=== PATIENT | female | born 1945 | race Caucasian/White ===

== ENCOUNTER → 2023-12-31 16:44 | Outpatient (REF) | payer OTHER, SELFPAY | LOC: RAD 16:44 | PROVIDERS: ATTENDING PHYSICIAN Student in an Organized Health Care Education/Training Program | DX: S69.92XA Unspecified injury of left wrist, hand and finger(s), initial encounter (principal) | CPT/HCPCS: 73140 ==

== ENCOUNTER → 2024-07-14 08:56 | Outpatient (REF) | payer OTHER, SELFPAY | LOC: HWRAD 08:56 | PROVIDERS: ATTENDING PHYSICIAN Student in an Organized Health Care Education/Training Program | DX: M81.0 Age-related osteoporosis without current pathological fracture (principal); Z12.31 Encounter for screening mammogram for malignant neoplasm of breast | CPT/HCPCS: 77063; 77067; 77080 ==

== ENCOUNTER 2025-01-26 20:56 | Inpatient (IN) | payer OTHER, SELFPAY ==
[2025-01-26] VITALS (20 sets, daily range): BP systolic 91–126; BP diastolic 42–88; BMI 27.0
[2025-01-26 17:24] LABS: % Basophils 0.5 % (0-2); % Eosinophils 0.1 % (0-6); % Immature Granulocytes 0.6 % (0-0.5); % Lymphocytes 7.4 % (20.5-51.1); % Monocytes 9.2 % (1.7-9.3); % Neutrophils 82.2 % (42.2-75.2); Absolute Basophils 0.1 10^3/uL (0-0.2); Absolute Immature Granulocytes 0.1 10^3/uL (0-0.05); Absolute Lymphocytes 1.2 10^3/uL (1.2-3.4); Absolute Monocytes 1.5 10^3/uL (0.1-0.6); Absolute Neutrophils 13.3 10^3/uL (1.4-6.5); Hemoglobin 15.4 g/dL (12.0-16.0); Mean Corp Hgb Conc. 35.8 g/dL (33.0-37.0); Mean Corpuscular Hgb 30.6 pg (27.0-31.0); Mean Corpuscular Volume 85.5 fL (81.0-99.0); Mean Platelet Volume 9.7 fL (7.4-10.4); Nucleated Red Blood Cells % 0 %; Platelet Count 196 10^3/uL (130-400); Red Blood Cell Count 5.03 10^6/uL (4.20-5.40); Red Cell Dist. Width 13.6 % (11.5-14.5); White Blood Cell Count 16.2 10^3/uL (4.8-10.8)
[2025-01-26 17:41] LABS: ALT (SGPT) 26 U/L (0-35); AST (SGOT) 29 U/L (14-36); Albumin 3.3 g/dl (3.5-5.0); Alkaline Phosphatase 131 U/L (38-126); Blood Urea Nitrogen 16 mg/dl (7-17); Calcium 8.5 mg/dl (8.4-10.2); Carbon Dioxide 26 mmol/L (22-30); Chloride 96 mmol/L (98-107); Glucose 143 mg/dl (70-99); Potassium 3.7 mmol/L (3.5-5.1); Sodium 131 mmol/L (135-145); Total Protein 6.5 g/dl (6.3-8.2); eGFR > 60.00
[2025-01-26 17:47] LABS: COVID-19 Antigen Negative (Negative)
[2025-01-26 17:51] LABS: Urine Albumin 3+ (Neg - Trace); Urine Bilirubin 1+ (Negative); Urine Character Slightly Cloudy (Clear); Urine Color Yellow; Urine Glucose Negative (Negative); Urine Ketone 3+ (Negative); Urine Leukocyte 3+ (Negative); Urine Nitrite Negative (Negative); Urine Occult Blood 2+ (Negative); Urine Specific Gravity 1.025 (<1.030); Urine Urobilinogen 1+ (Neg - 1+)
[2025-01-26 17:52] LABS: Troponin I 0.308 ng/ml
--- NOTE | 2025-01-26 17:53 | ED.GENMED ---
History of Present Illness
<Kevyn Barillas DO - Last Filed: 01/26/25 18:29>
General
Chief Complaint: Cold/Flu/URI Symptoms
Time Seen by Provider: 01/26/25 17:35
<BRUNA Brown - Last Filed: 01/26/25 23:19>
General
Source: patient
Exam Limitations: none
Nursing documentation reviewed up to this point in time: agreed with
History of Present Illness
History of Present Illness:
patient is a 79-year-old female who presents to the ER for evaluation. Patient reports on Thursday 4 days ago she started decreased appetite and on Thursday she developed some head pressure. She has had a mild cough and has had 4 episodes of
diarrhea. She feels very weak dizzy and tired and noticed her balance seems a little off with feeling dizzy which is what prompted her to come to the ER today. She denies any actual fevers. She denies any chest pain any shortness of breath. She
denies any urinary frequency urgency or dysuria.
Past History
<BRUNA Brown - Last Filed: 01/26/25 23:19>
Past History
ED Past Medical History: HTN and Hypothyroidism
ED Past Surgical History: None
Review of Systems
<BRUNA Brown - Last Filed: 01/26/25 23:19>
Review of Systems
Allergies reviewed?: Yes
Other source history: family
All Other Systems: ROS reviewed and negative except as documented in HPI and ROS
Constitutional: Reports fatigue; Denies fever or chills
EENT: Reports no symptoms
Respiratory: Reports cough
ABD/GI: Reports diarrhea
: Reports no symptoms
Musculoskeletal: Reports no symptoms
Skin: Reports no symptoms
Neurological: Reports dizzy, headache and other (feels a little off balance )
Psychiatric: Reports no symptoms
Phy Exam
<BRUNA Brown - Last Filed: 01/26/25 23:19>
General Physical Exam
General Presentation: no apparent distress
General age: appears stated age
General Skin: warm and dry
General Habitus: normal
General Mental: alert
General Hydration: dry mucous membranes
Cardiovascular Exam
Cardiovascular Exam: regular rate/rhythm, no murmur and normal peripheral pulses
Pulmonary Exam
Pulmonary Exam: lungs clear and no respiratory distress
Neurological Exam
Neurological Exam: alert, oriented x3, no motor deficits, no sensory deficits and speech normal
Cerebellar
Cerebellar Function: normal finger to nose
Musculoskeletal Exam
Musculoskeletal Exam: full ROM
Skin Exam
Skin Exam: normal color and warm/dry
Psychiatric Exam
Psychiatric Exam: normal mood/affect
Course
<Kevyn Barillas DO - Last Filed: 01/26/25 18:29>
Orders/Labs/Results
Orders:
Orders
01/26/25 Breakfast
Clear Liquid
01/26/25 16:51
Electrocardiogram (*1) Urgent
Reason for Study: Vertigo / Dizzy
01/26/25 16:52
EKG- Treatment ONCE
01/26/25 17:09
CMP [Comprehensive Metabolic Panel] Urgent
COVID-19 Antigen Urgent
Source: Nasal Swab
Complete Blood Count/With Diff Urgent
Troponin I Urgent
Urinalysis Reflex To Culture Urgent
Date Specimen was Collected: 01/26/25
Time Specimen was Collected: 16:54
Urine Microscopic Reflex Cult Urgent
INF RAPID [Influenza A+B Rapid Molecular] Urgent
AMIRA Source: Nasal Swab
Specimen Description:
Urine Culture Urgent
AMIRA Source: U
Specimen Description:
Date Specimen was Collected: 01/26/25
Time Specimen was Collected: 16:54
01/26/25 18:12
CT Head W/o Iv Contrast Urgent
Comment:
Reason For Exam: headache /balance issues
01/26/25 18:41
0.9% Sodium Chloride 1000 ml [Nss] 1,000 ml IV BOLUS
01/26/25 19:25
Diltiazem HCl [Cardizem] 10 mg IV NOW STA
01/26/25 19:30
Diltiazem 125 mg/125 ml Nss [Cardizem] 125 mg in 125 ml IV PER PROTOCOL
Initial dose in mg/hr, then titrate:: 5
Titrate to keep:: Heart rate 80-100 bpm
Titrate by mg/hr:: 5 mg/hr
Frequency of titrations (minutes):: 15
Maximum dose in mg/hr:: 15
01/26/25 19:43
Acetaminophen [Tylenol] 650 mg PO NOW STA
01/26/25 19:58
Heparin 4,000 units IV NOW STA
Nursing to Place Non Medication Order As Directed
Physician Order: PTT 6 hours after initial start of Heparin infusion
Above order entered?: Yes
01/26/25 20:00
Heparin 22327 Units/250 ml 25,000 units in 250 ml IV PER PROTOCOL
Weight to be used for heparin protocol in kilograms (kg):: 71.8
Protocol:: Cardiac Tx/Acute Coronary
PTT Goal Range to be used:: PTT 73 to 111 seconds
Order type:: Initial
INITIAL Infusion Dose (UNITS/KG/hr) & then follow protocol:: 12 units/kg/hr
Infusion Dose in UNITS/hr & then follow protocol (UNITS/hr):: 850
INFUSION RATE in mL/hr & then follow protocol (mL/hr):: 8.5
PTT less than or equal to 64 seconds:: Increase rate by 200 units/hr (+ 2 mL/hr)
PTT 64.1 to 72.9 seconds:: Increase rate by 100 units/hr (+ 1 mL/hr)
PTT 73 to 111 seconds:: Target Range. No change in rate.
PTT 111.1 to 130.9 seconds:: Decrease rate by 100 units/hr (- 1 mL/hr)
PTT 131 to 199.9 seconds:: HOLD for 1 hr. Then decrease rate by 200 units/hr (- 2 mL/hr)
PTT greater than or equal to 200 seconds:: HOLD for 2 hrs & Notify Provider. Then decrease by 200 units/hr (-
2 mL/hr)
Lab follow-up:: Each change, PTT q6h until 2 consecutive are therapeutic. Then PTT
daily.
01/26/25 20:26
Admit/Transfer Patient As Directed
Co-Sign Provider:
Level of Care: Inpatient admission
Assign to:: IVU
Physician / Group: Ac
Diagnosis: A-fib w/RVR, Diarrhea
Reason for Hospitalization: IVFs, cardizem drip, heparin drip
Expected length of stay greater than two midnights?: Yes
ELOS- Estimated Length of Stay in days: 3
I certify the patient meets the requirements for IP care: Yes
Norovirus by PCR Urgent
AMIRA Source: Feces/Stool
Specimen Description:
STOOL [C difficile Antigen & Toxins] Urgent
AMRIA Source: Feces/Stool
Specimen Description:
Stool Culture Urgent
AMIRA Source: Feces/Stool
Specimen Description:
PRN Pain Medication Management As Directed
May give lesser potent ordered pain med per pt: Yes
preference::
Protocol:: Medication orders for pain may be administered in a
manner that supports deferring to patient preference
when the pt is:
- Requesting an ordered lesser potent pain medication.
Least to most potent pain medications are defined
as: acetaminophen < NSAID < tramadol < opioids
(morphine, oxycodone, hydromorphone).
- Requesting a lesser dose of the same medication IF
ORDERED.
- Requesting a less intrusive route of administration
if both routes are prescribed by the provider (PO <
IV).
01/26/25 20:29
Code Status As Directed
Resuscitation Status: Full Code
01/26/25 20:32
PTT Urgent
Comment: Obtain baseline before beginning heparin infusion if not already collected
01/26/25 21:00
0.9% Sodium Chloride 1000 ml [Nss] 1,000 ml IV 100 mls/hr
01/26/25 22:39
Acetaminophen [Tylenol] 650 mg PO Q4HPRN PRN
01/26/25 22:39
Echo 2D MMode Color/Doppler Routine
Reason for Study: new afib, known valvular disease
Cardiology Consult: Diogo Fisher
Heparin Protocol- PTT Orders As Directed
PTT per Heparin protocol: -Obtain CBC and baseline PTT - if not already collected.
-Obtain PTT 6 hours from start of infusion. Then, every 6 hours until 2 consecutive
PTT's are therapeutic. Then, PTT Daily.
-With each rate change, obtain PTT every 6 hours until 2 consecutive PTT's are
therapeutic. Then, PTT Daily.
Activity As Directed
Activity Level: Bedrest
I&O [Intake/ Output] As Directed
Frequency: q12h
Notify MD As Directed
Notify physician if: PTT is greater than or equal to 200.
Orthostatic Vital Signs As Directed
Orthostatic VS Frequency: Daily
Vital Signs As Directed
Frequency: Per unit guidelines
Weight As Directed
Frequency: Daily
01/26/25 23:07
Troponin I Q6H
01/27/25 05:00
Troponin I Q6H
01/27/25 06:00
Basic Metabolic Panel IN AM
Complete Blood Count/No Diff IN AM
Magnesium IN AM
TSH Reflex To Free T4 IN AM
Levothyroxine [Synthroid] 88 mcg PO DAILY @ 0600
01/27/25 08:00
Famotidine [Pepcid] 20 mg PO DAILY
Metoprolol Xl [Toprol Xl] 50 mg PO DAILY
Sertraline HCl [Zoloft] 50 mg PO DAILY
01/27/25 12:00
Ezetimibe [Zetia] 10 mg PO DAILY@1200
01/28/25 06:00
Complete Blood Count/No Diff Q2D
Comment: notify provider: Platelet count < 130,000 or decrease by 50% from baseline
01/30/25 06:00
Complete Blood Count/No Diff Q2D
Comment: notify provider: Platelet count < 130,000 or decrease by 50% from baseline
02/01/25 06:00
Complete Blood Count/No Diff Q2D
Comment: notify provider: Platelet count < 130,000 or decrease by 50% from baseline
02/03/25 06:00
Complete Blood Count/No Diff Q2D
Comment: notify provider: Platelet count < 130,000 or decrease by 50% from baseline
02/05/25 06:00
Complete Blood Count/No Diff Q2D
Comment: notify provider: Platelet count < 130,000 or decrease by 50% from baseline
02/07/25 06:00
Complete Blood Count/No Diff Q2D
Comment: notify provider: Platelet count < 130,000 or decrease by 50% from baseline
02/09/25 06:00
Complete Blood Count/No Diff Q2D
Comment: notify provider: Platelet count < 130,000 or decrease by 50% from baseline
02/11/25 06:00
Complete Blood Count/No Diff Q2D
Comment: notify provider: Platelet count < 130,000 or decrease by 50% from baseline
Abnormal Lab Results
01/26/25 01/26/25
17:09 20:32
WBC 16.2 H 10^3/uL
(4.8-10.8)
Abs Immat Gran (auto) 0.1 H 10^3/uL
(0-0.05)
Absolute Neuts (auto) 13.3 H 10^3/uL
(1.4-6.5)
Absolute Monos (auto) 1.5 H 10^3/uL
(0.1-0.6)
Immature Gran % 0.6 H %
(0-0.5)
Neutrophils % 82.2 H %
(42.2-75.2)
Lymphocytes % 7.4 L %
(20.5-51.1)
APTT 39.1 H Sec
(23.4-35.0)
Sodium 131 L mmol/L
(135-145)
Chloride 96 L mmol/L
(98-107)
Glucose 143 H mg/dl
(70-99)
Alkaline Phosphatase 131 H U/L
(38-126)
Troponin I 0.308 H* ng/ml
Albumin 3.3 L g/dl
(3.5-5.0)
Urine Ketones 3+ A
(Negative)
Ur Occult Blood Reflex 2+ A
(Negative)
Urine Bilirubin 1+ A
(Negative)
Leukocyte Esterase Rfl 3+ A
(Negative)
Urine Bacteria (Reflex) Few A
(Negative)
Urine Albumin (Reflex) 3+ A
(Neg - Trace)
01/26/25 17:09
01/26/25 17:09
Vital Signs
Initial and Last Documented VS:
Initial Vital Signs
Temp Pulse Resp BP Pulse Ox
98.9 F 112 16 124/66 94
01/26/25 16:48 01/26/25 16:48 01/26/25 16:48 01/26/25 16:48 01/26/25 16:48
Last Documented Vital Signs
Temp Pulse Resp BP Pulse Ox
97.5 F 97 22 101/64 93
01/26/25 22:28 01/26/25 22:00 01/26/25 22:00 01/26/25 22:00 01/26/25 22:29
<BRUNA Brown - Last Filed: 01/26/25 23:19>
Orders/Labs/Results
Orders:
Orders
01/26/25 Breakfast
Clear Liquid
01/26/25 16:51
Electrocardiogram (*1) Urgent
Reason for Study: Vertigo / Dizzy
01/26/25 16:52
EKG- Treatment ONCE
01/26/25 17:09
CMP [Comprehensive Metabolic Panel] Urgent
COVID-19 Antigen Urgent
Source: Nasal Swab
Complete Blood Count/With Diff Urgent
Troponin I Urgent
Urinalysis Reflex To Culture Urgent
Date Specimen was Collected: 01/26/25
Time Specimen was Collected: 16:54
Urine Microscopic Reflex Cult Urgent
INF RAPID [Influenza A+B Rapid Molecular] Urgent
AMIRA Source: Nasal Swab
Specimen Description:
Urine Culture Urgent
AMIRA Source: U
Specimen Description:
Date Specimen was Collected: 01/26/25
Time Specimen was Collected: 16:54
01/26/25 18:12
CT Head W/o Iv Contrast Urgent
Comment:
Reason For Exam: headache /balance issues
01/26/25 18:41
0.9% Sodium Chloride 1000 ml [Nss] 1,000 ml IV BOLUS
01/26/25 19:25
Diltiazem HCl [Cardizem] 10 mg IV NOW STA
01/26/25 19:30
Diltiazem 125 mg/125 ml Nss [Cardizem] 125 mg in 125 ml IV PER PROTOCOL
Initial dose in mg/hr, then titrate:: 5
Titrate to keep:: Heart rate 80-100 bpm
Titrate by mg/hr:: 5 mg/hr
Frequency of titrations (minutes):: 15
Maximum dose in mg/hr:: 15
01/26/25 19:43
Acetaminophen [Tylenol] 650 mg PO NOW STA
01/26/25 19:58
Heparin 4,000 units IV NOW STA
Nursing to Place Non Medication Order As Directed
Physician Order: PTT 6 hours after initial start of Heparin infusion
Above order entered?: Yes
01/26/25 20:00
Heparin 71396 Units/250 ml 25,000 units in 250 ml IV PER PROTOCOL
Weight to be used for heparin protocol in kilograms (kg):: 71.8
Protocol:: Cardiac Tx/Acute Coronary
PTT Goal Range to be used:: PTT 73 to 111 seconds
Order type:: Initial
INITIAL Infusion Dose (UNITS/KG/hr) & then follow protocol:: 12 units/kg/hr
Infusion Dose in UNITS/hr & then follow protocol (UNITS/hr):: 850
INFUSION RATE in mL/hr & then follow protocol (mL/hr):: 8.5
PTT less than or equal to 64 seconds:: Increase rate by 200 units/hr (+ 2 mL/hr)
PTT 64.1 to 72.9 seconds:: Increase rate by 100 units/hr (+ 1 mL/hr)
PTT 73 to 111 seconds:: Target Range. No change in rate.
PTT 111.1 to 130.9 seconds:: Decrease rate by 100 units/hr (- 1 mL/hr)
PTT 131 to 199.9 seconds:: HOLD for 1 hr. Then decrease rate by 200 units/hr (- 2 mL/hr)
PTT greater than or equal to 200 seconds:: HOLD for 2 hrs & Notify Provider. Then decrease by 200 units/hr (-
2 mL/hr)
Lab follow-up:: Each change, PTT q6h until 2 consecutive are therapeutic. Then PTT
daily.
05/01/25 20:26
Admit/Transfer Patient As Directed
Co-Sign Provider:
Level of Care: Inpatient admission
Assign to:: IVU
Physician / Group: Ac
Diagnosis: A-fib w/RVR, Diarrhea
Reason for Hospitalization: IVFs, cardizem drip, heparin drip
Expected length of stay greater than two midnights?: Yes
ELOS- Estimated Length of Stay in days: 3
I certify the patient meets the requirements for IP care: Yes
Norovirus by PCR Urgent
AMIRA Source: Feces/Stool
Specimen Description:
STOOL [C difficile Antigen & Toxins] Urgent
AMIRA Source: Feces/Stool
Specimen Description:
Stool Culture Urgent
AMIRA Source: Feces/Stool
Specimen Description:
PRN Pain Medication Management As Directed
May give lesser potent ordered pain med per pt: Yes
preference::
Protocol:: Medication orders for pain may be administered in a
manner that supports deferring to patient preference
when the pt is:
- Requesting an ordered lesser potent pain medication.
Least to most potent pain medications are defined
as: acetaminophen < NSAID < tramadol < opioids
(morphine, oxycodone, hydromorphone).
- Requesting a lesser dose of the same medication IF
ORDERED.
- Requesting a less intrusive route of administration
if both routes are prescribed by the provider (PO <
IV).
01/26/25 20:29
Code Status As Directed
Resuscitation Status: Full Code
01/26/25 20:32
PTT Urgent
Comment: Obtain baseline before beginning heparin infusion if not already collected
01/26/25 21:00
0.9% Sodium Chloride 1000 ml [Nss] 1,000 ml IV 100 mls/hr
01/26/25 22:39
Acetaminophen [Tylenol] 650 mg PO Q4HPRN PRN
01/26/25 22:39
Echo 2D MMode Color/Doppler Routine
Reason for Study: new afib, known valvular disease
Cardiology Consult: Diogo Fisher
Heparin Protocol- PTT Orders As Directed
PTT per Heparin protocol: -Obtain CBC and baseline PTT - if not already collected.
-Obtain PTT 6 hours from start of infusion. Then, every 6 hours until 2 consecutive
PTT's are therapeutic. Then, PTT Daily.
-With each rate change, obtain PTT every 6 hours until 2 consecutive PTT's are
therapeutic. Then, PTT Daily.
Activity As Directed
Activity Level: Bedrest
I&O [Intake/ Output] As Directed
Frequency: q12h
Notify MD As Directed
Notify physician if: PTT is greater than or equal to 200.
Orthostatic Vital Signs As Directed
Orthostatic VS Frequency: Daily
Vital Signs As Directed
Frequency: Per unit guidelines
Weight As Directed
Frequency: Daily
01/26/25 23:07
Troponin I Q6H
01/27/25 05:00
Troponin I Q6H
01/27/25 06:00
Basic Metabolic Panel IN AM
Complete Blood Count/No Diff IN AM
Magnesium IN AM
TSH Reflex To Free T4 IN AM
Levothyroxine [Synthroid] 88 mcg PO DAILY @ 0600
01/27/25 08:00
Famotidine [Pepcid] 20 mg PO DAILY
Metoprolol Xl [Toprol Xl] 50 mg PO DAILY
Sertraline HCl [Zoloft] 50 mg PO DAILY
01/27/25 12:00
Ezetimibe [Zetia] 10 mg PO DAILY@1200
01/28/25 06:00
Complete Blood Count/No Diff Q2D
Comment: notify provider: Platelet count < 130,000 or decrease by 50% from baseline
01/30/25 06:00
Complete Blood Count/No Diff Q2D
Comment: notify provider: Platelet count < 130,000 or decrease by 50% from baseline
02/01/25 06:00
Complete Blood Count/No Diff Q2D
Comment: notify provider: Platelet count < 130,000 or decrease by 50% from baseline
02/03/25 06:00
Complete Blood Count/No Diff Q2D
Comment: notify provider: Platelet count < 130,000 or decrease by 50% from baseline
02/05/25 06:00
Complete Blood Count/No Diff Q2D
Comment: notify provider: Platelet count < 130,000 or decrease by 50% from baseline
02/07/25 06:00
Complete Blood Count/No Diff Q2D
Comment: notify provider: Platelet count < 130,000 or decrease by 50% from baseline
02/09/25 06:00
Complete Blood Count/No Diff Q2D
Comment: notify provider: Platelet count < 130,000 or decrease by 50% from baseline
02/11/25 06:00
Complete Blood Count/No Diff Q2D
Comment: notify provider: Platelet count < 130,000 or decrease by 50% from baseline
Abnormal Lab Results
01/26/25 01/26/25
17:09 20:32
WBC 16.2 H 10^3/uL
(4.8-10.8)
Abs Immat Gran (auto) 0.1 H 10^3/uL
(0-0.05)
Absolute Neuts (auto) 13.3 H 10^3/uL
(1.4-6.5)
Absolute Monos (auto) 1.5 H 10^3/uL
(0.1-0.6)
Immature Gran % 0.6 H %
(0-0.5)
Neutrophils % 82.2 H %
(42.2-75.2)
Lymphocytes % 7.4 L %
(20.5-51.1)
APTT 39.1 H Sec
(23.4-35.0)
Sodium 131 L mmol/L
(135-145)
Chloride 96 L mmol/L
(98-107)
Glucose 143 H mg/dl
(70-99)
Alkaline Phosphatase 131 H U/L
(38-126)
Troponin I 0.308 H* ng/ml
Albumin 3.3 L g/dl
(3.5-5.0)
Urine Ketones 3+ A
(Negative)
Ur Occult Blood Reflex 2+ A
(Negative)
Urine Bilirubin 1+ A
(Negative)
Leukocyte Esterase Rfl 3+ A
(Negative)
Urine Bacteria (Reflex) Few A
(Negative)
Urine Albumin (Reflex) 3+ A
(Neg - Trace)
01/26/25 17:09
01/26/25 17:09
Vital Signs
Initial and Last Documented VS:
Initial Vital Signs
Temp Pulse Resp BP Pulse Ox
98.9 F 112 16 124/66 94
01/26/25 16:48 01/26/25 16:48 01/26/25 16:48 01/26/25 16:48 01/26/25 16:48
Last Documented Vital Signs
Temp Pulse Resp BP Pulse Ox
97.5 F 97 22 101/64 93
01/26/25 22:28 01/26/25 22:00 01/26/25 22:00 01/26/25 22:00 01/26/25 22:29
Child Caregiver Private Home consulted with Physician
Child Caregiver Private Home consulted with physician?: Yes
Name of Physician Consulted: Adilia
<BRUNA Brown - Last Filed: 01/26/25 23:19>
MDM/Problems Addressed
Differential Diagnosis Includes:
not limited to: viral syndrome, ACS less likely, new onset afib
MDM/Problems Addressed:
As documented patient is a 72 send no female who presented with decreased appetite weakness head pressure mild cough diarrhea for the past 4 days. She presented today because she feels very dizzy weak and her balance seems a little off. Daughter
reports normally she walks without any assistive device but feels that she needs a cane recently. She had no complaints of chest pain however presents with an elevated troponin of 0.308. She has a history of hypertension hypercholesterolemia
however no history of cardiac disease. Nonspecific but no acute findings on EKG.
Patient evaluated by ED physician CT ordered for complaints of headache balance issues. I did walk balance patient seems a little slower and seems a little unsure of her gait.
she is dry and w/ history of diarrhea IVF ordered.
1914 patient on the monitor suddenly went into rapid A-fib with a heart rate of 147.: She however is asymptomatic with no feeling of palpitations chest pain or shortness of breath. With elevated troponin it is likely that patient has been going in
and out of A-fib however was unaware at home. Fluids currently infusing however will order Cardizem to further rate control
IV heparin ordered will admit
<BRUNA Brown - Last Filed: 01/26/25 23:19>
*Radiology
Radiology exam reviewed: radiology read reviewed
*Pulse Oximetry
Patient hypoxic: no
*EKG
Interpreted by ED Provider?: Yes
Heart Rate: 101
Rate: tachycardiac
Rhythm: sinus
Ischemia: non-specific ST changes
*Critical Care Note
Total Time (30-74mins, 75-104mins- exclusive of procedures): Not Applicable
comment:
Critical care statement: A total of 40 minutes of critical care time was provided for this patient. This includes management of unstable vital signs, evaluation of the patient at bedside, reviewing the patient's pertinent medical records, discussion
with consultants, review of old EKGs and review of pertinent medical records. This time with separate from time utilized to perform the aforementioned documented procedures
ED Attending Note
<Kevyn Barillas DO - Last Filed: 01/26/25 18:29>
ED Attending Note
Patient seen and examined by attending physician: Yes
I performed the substantive portion of visit, reviewed & personally made and approve the management plan that is documented in note by myself or DON.: Yes
<BRUNA Brown - Last Filed: 01/26/25 23:19>
-
Portions of this chart may have been created with voice recognition software.� Occasional wrong word or��sound alike� substitutions may have occurred due to the inherent limitations of voice recognition software.
Discharge Plan
Departure
Patient Disposition: Admit
Date of Disposition: 01/26/25
Time of Disposition: 20:03
Admit to: Telemetry
Admit to doctor: hospitalist
Presentation/result/management discussed w/ accepting MD/DO: Hospitalist
Patient with high blood pressure during this ER visit?: No
Condition: Fair
Covid-19: Not Applicable
Discharge Problem:
Acute viral syndrome, Atrial fibrillation, new onset, Elevated troponin
Interventions
Interventions:
*General Assessment Last Done: 01/26/25 19:09
*Neglect/Abuse Screening Last Done: 01/26/25 16:48
*ED- Fall Risk Assessment Last Done: 01/26/25 19:09
*Nursing Disposition Last Done: 01/26/25 22:26
Discharge Date and Time
Discharge Date/Time: 01/26/25 22:26
[2025-01-26 17:56] LABS: Urine Bacteria Few (Negative); Urine Red Blood Cell 0-2 /HPF (0-2)
[2025-01-26] MEDS: NSS 1000 IV ×2 (19:31→21:28)
[2025-01-26] MEDS: CARDIZEM 10 MG IV (19:31)
[2025-01-26] MEDS: CARDIZEM 125 IV (19:33)
[2025-01-26] MEDS: TYLENOL 650 MG PO (19:44)
--- NOTE | 2025-01-26 20:11 | HPS.HSE ---
Addendum entered and electronically signed by Delmer Shen DO 01/26/25 21:21:
Patient seen and examined independently. Agree with findings and plan as set forth by JEREMY Hardwick.
Patient is a 79y F with PMH significant for hypertension and hypothyroidism who presents to ED complaining of headache, dizziness and diarrhea. Patient states that she has been having GI symptoms for about 4 days with minimal N/V followed by
several days of diarrhea. No known sick contacts or recent travel. Today she developed headache and dizziness and presented to the ED for further evaluation. While in the ED, patient developed atrial fibrillation with rapid ventricular response.
She denies any priro h/o A-Fib. She denies any chest pain / pressure, SOB, etc. In the ED, her headache has improved after Tylenol and patient complains of feeling flushed / warm and diaphoretic.
Ass:
New A-Fib with Rapid Ventricular Response
Abnormal Troponin - ? Type
Suspected Viral Gastroenteritis
Hyponatremia - Likely Hypovolemic
Benign Hypertension
Hypothyroidism
Anxiety
Plan:
Admit for further evaluation and treatment.
IV diltiazem for rate control. IV heparin for stroke risk reduction.
Follow troponin to peak and monitor for any new chest pain, dyspnea, etc.
Cardiology consulted for additional recommendations.
IVF support given recent GI losses, etc.
Check stool studies. Observe off of abx for now.
Follow for any new / worsening symptoms.
Original Note:
Family Physician
-
Family Physician: Prince Gonzales
Chief Complaint
-
Headache, Dizziness and Diarrhea
History of Present Illness
Patient is a 79 y/o female past medical history of hypertension, hypothyroidism and anxiety who presents with headache, dizziness and diarrhea. Patient reports symptoms started 4 days ago initially with nausea and a little bit of vomiting. She then
developed diarrhea which has persisted for the last several days. She reports very poor oral intake. She reports low grade fevers ~100.4 over the past two day, but temperature seems to have normalized. Today she began complaining of increased head
pressure and dizziness prompting family to bring her to the emergency department for evaluation. While in the emergency department patient developed atrial fibrillation with rapid ventricular response. Patient denies any prior history of atiral
fibrillation. She denies chest pain or palpitations.
Medical History
Past Medical History
Past Medical History: Reports Other
Additional Past Medical History:
Essential Hypertension
Hyperlipidemia
Mild Aortic Regurgitation
Post-Surgical Hypothyroidism
Anxiety
GERD
Past Surgical History: Reports Other
Additional Past Surgical History:
Thyroidectomy
Right Wrist ORIF
Right Knee Replacement
Social History
Tobacco: Non-smoker
Alcohol: Occasional (Once a week)
Family History
Family History: Not pertinent
Allergies / Home Medications
Allergies reflects when Allergies were last updated in [employer].
Home Medications with original date entered in [facility]
Allergy/Medication List:
Allergies
Allergy/AdvReac Type Severity Reaction Status Date / Time
lisinopril Allergy Unknown Verified 01/26/25 20:20
Home Medications
Viviscal 1 tab PO BID 01/26/25
calcium carbonate 500 mg PO DAILY 01/26/25
ezetimibe 10 mg tablet (Zetia) 10 mg PO DAILY@1200 01/26/25
glycopyrrolate 1 mg tablet 1 mg PO BID 01/26/25
levothyroxine 88 mcg tablet (Synthroid) 88 mcg PO DAILY 01/26/25
metoprolol succinate 50 mg tablet,extended release 24 hr (Toprol XL) 50 mg PO DAILY 01/26/25
omeprazole 20 mg tablet,delayed release 20 mg PO DAILY 01/26/25
sertraline 50 mg tablet 50 mg PO DAILY 01/26/25
vitamins A,C,Y-nepk-bqqwrw 2,148 mcg-113 mg-45 mg-17.4 mg tablet (PreserVision AREDS) 1 tab PO BID 01/26/25
Review of Systems
-
A 12 point ROS was completed and negative except as noted: Yes
Constitutional: Denies Fever
Respiratory: Reports Cough (Minimal which has resolved); Denies Trouble Breathing
Cardiac: Denies Chest Pain or Palpitations
Abdomen/GI: Reports See HPI
Physical Exam
Vital Signs
Vital Signs
Temp Pulse Resp BP Pulse Ox
98.9 F 168 28 102/78 93
01/26/25 16:48 01/26/25 19:31 01/26/25 19:30 01/26/25 19:31 01/26/25 18:30
Physical Exam
General: Comfortable and Conversant
HEENT: NormoCephalic, Anicteric and Atraumatic
Respiratory: Clear and Non Labored Respirations
Cardiac: S1/S2, Irregular Rhythm and Tachycardia
GI: Soft and Non Tender
Rectal: Deferred by Provider
Musculoskeletal: No Clubbing and No Cyanosis
Skin: Warm and Dry
Neuro: Awake, Alert, Oriented and Nonfocal/grossly intact
Psych: Calm
Laboratory Results
-
01/26/25 17:09
01/26/25 17:09
Laboratory Results
Total Bilirubin 1.0 mg/dl (0.2-1.3) 01/26/25 17:09
AST 29 U/L (14-36) 01/26/25 17:09
ALT 26 U/L (0-35) 01/26/25 17:09
Alkaline Phosphatase 131 U/L (38-126) H 01/26/25 17:09
Troponin I 0.308 ng/ml H* 01/26/25 17:09
Data Reviewed
-
Lab Data: Labs Reviewed by me
Impression/Plan
-
New-Onset Atrial Fibrillation with Rapid Ventricular Response
-Admit to IVU
-Patient has not taken her Toprol XL for past few days - Will resume tomorrow
-Continue titratable Cardizem drip
-Continue heparin drip started in ED
-Consult Cardiology
Elevated Troponin, suspect non-ischemic myocardial injury in setting of rapid a-fib
-Continue to trend troponin
-Check Echocardiogram
Diarrhea, suspect viral gastroenteritis
-Check stool culture, stool for C Diff and Norovirus
-Allow clear liquids
Hyponatremia, mildly likely hypovolemic ic in nature
-Continue IVFs
-Recheck sodium in AM
Essential Hypertension
-Continue Toprol with hold parameters
Hyperlipidemia
-Continue Zetia
Post-Surgical Hypothyroidism
-Continue levothyroxine
Anxiety
-Continue Zoloft
DVT proph: Heparin Drip
Code Status: Full Code
[2025-01-26] MEDS: HEPARIN 4000 UNITS IV (20:42)
[2025-01-26] MEDS: HEPARIN 25000 UNITS/250 ML IV (20:43)
[2025-01-26 20:53] LABS: APTT 39.1 Sec (23.4-35.0)
[2025-01-26 23:41] LABS: Troponin I 0.224 ng/ml
--- NOTE | 2025-01-26 23:57 | PTCARENOTE ---
Pt arrived from ER to IVU room 2244 at approx 2215. Received pt on Heparin drip at 850 units/hr and Cardizem drip at 10 mg/hr. Pt able to ambulate with standby assistance and single point cane from stretcher to bed and to the bathroom. A/O x4, no
c/o pain. AFib 110s-120s upon arrival, now that pt is asleep HR has come down to 90s/low 100s. MAPs have been >65. Physical assessment as documented in nursing shift assessment flowsheet. Admission database completed. Pt and her daughter updated on
plan of care and isolation precautions (currently on Enhanced precautions to r/o C.Diff, pt has not yet had a BM since arriving to IVU). Call marques and personal items within reach.
[2025-01-27] VITALS (11 sets, daily range): BP systolic 99–128; BP diastolic 56–91; PULSE 94–116; BMI 26.9
[2025-01-27] MEDS: TYLENOL 650 MG PO ×3 (03:35→17:11)
[2025-01-27 03:40] LABS: Hemoglobin 13.6 g/dL (12.0-16.0); Mean Corpuscular Hgb 29.9 pg (27.0-31.0); Mean Corpuscular Volume 87.9 fL (81.0-99.0); Mean Platelet Volume 9.6 fL (7.4-10.4); Platelet Count 179 10^3/uL (130-400); Red Blood Cell Count 4.55 10^6/uL (4.20-5.40); Red Cell Dist. Width 13.7 % (11.5-14.5); White Blood Cell Count 16.3 10^3/uL (4.8-10.8)
[2025-01-27 03:59] LABS: APTT 61.4 Sec (23.4-35.0)
[2025-01-27 04:03] LABS: Blood Urea Nitrogen 11 mg/dl (7-17); Carbon Dioxide 21 mmol/L (22-30); Chloride 106 mmol/L (98-107); Estimated Creatinine Clearance 68 ml/min; Glucose 132 mg/dl (70-99); Magnesium 2.1 mg/dl (1.6-2.3); Potassium 3.5 mmol/L (3.5-5.1); Sodium 137 mmol/L (135-145); eGFR > 60.00
[2025-01-27 04:20] LABS: Troponin I 0.155 ng/ml
[2025-01-27 04:31] LABS: TSH Reflex To Free T4 0.82 uIU/ml (0.47-4.68)
[2025-01-27] MEDS: SYNTHROID 88 MCG PO (06:13)
[2025-01-27] MEDS: CARDIZEM 125 IV (06:13)
--- NOTE | 2025-01-27 08:29 | W.PN.HOSP.TC ---
Today's Communication/Plan
-
See plan
Assessment / Plan
Assessment / Plan
Physical Exam
General: Not in acute distress
HEENT: Normocephalic, Atraumatic
Respiratory: Clear to Auscultation Bilaterally
Cardiac: S1/S2, Irregular Rhythm and Tachycardia
GI: Soft and Non Tender. Positive bowel sounds.
Musculoskeletal: No Cyanosis
Skin: Warm and Dry
Neuro: Awake, Alert, Oriented and Nonfocal/grossly intact
Psych: Calm
Assessment/Plan
79 y/o female past medical history of hypertension, hypothyroidism and anxiety who presented with headache, dizziness and diarrhea. Patient reported symptoms started about 4 days prior to presentation, initially with nausea and a little bit of
vomiting. She then developed diarrhea which persisted for the last several days. She reported very poor oral intake. She reports low grade fevers ~100.4 F over the 2 days prior to presentation, but temperature seemed to have normalized. No known
sick contacts or recent travel. On the day of presentation, she began to complain of increased head pressure and dizziness prompting family to bring her to the emergency department for evaluation. While in the emergency department patient developed
atrial fibrillation with rapid ventricular response. Patient denied any prior history of atrial fibrillation. She denies chest pain or palpitations. She denies any chest pain / pressure, SOB, etc. In the ED, her headache has improved after
Tylenol and patient complained of feeling flushed / warm and diaphoretic.
New-Onset Atrial Fibrillation with Rapid Ventricular Response
-Monitor in IVU
-Patient has not taken her Toprol XL for past few days - resumed
-Continue titratable Cardizem drip
-Continue heparin drip started in ED
-Consult Cardiology
Elevated Troponin, suspect non-ischemic myocardial injury in setting of rapid a-fib
-Continue to trend troponin
-Check Echocardiogram
Leukocytosis
Diarrhea, suspect viral gastroenteritis
-Check stool culture, stool for C Diff and Norovirus
-Allow clear liquids
Hyperhidrosis
-Hold home Glycopyrrolate for now given anticholinergic effects which could have contributed to patient's symptoms
-Patient's daughter did mention that patient is sweating more, but patient does have chronic sweating more
Hyponatremia, mildly likely hypovolemic ic in nature
- IMPROVING
-Continue IVFs
-Recheck sodium in AM
Essential Hypertension
-Continue Toprol with hold parameters
Hyperlipidemia
-Continue Zetia
Post-Surgical Hypothyroidism
-Continue levothyroxine
Anxiety
-Continue Zoloft
DVT proph: Heparin Drip
Code Status: Full Code
On January 27, 2025, I spoke with both patient and her daughter, inside patient's room. I answered all of their questions and concerns to satisfaction.
Anticipated Discharge: 24 - 48 hours
Subjective/Interval History
-
Date of Service: January 27, 2025
Patient was seen and examined. She reported feeling better this morning.
Objective Data
-
Labs:
Laboratory Results
01/26/25 01/27/25 01/27/25
20:32 03:27 10:40
WBC 16.3 H
Hgb 13.6
Hct 40.0
Plt Count 179
APTT 39.1 H 61.4 H Pending
Sodium 137
Potassium 3.5
Chloride 106
Carbon Dioxide 21 L
BUN 11
Creatinine 0.6
Glucose 132 H
Calcium 8.0 L
Vital Signs:
Vital Signs
Temp Pulse Resp BP Pulse Ox
98.0 F 92 16 103/66 95
01/27/25 07:29 01/27/25 07:27 01/27/25 07:29 01/27/25 07:27 01/27/25 07:29
I&O
01/26/25 01/27/25 01/28/25
06:59 06:59 06:59
Intake Total 850.0 / 850.0
Output Total 100 / 100
Balance 750.0 / 750.0
--- NOTE | 2025-01-27 09:33 | CON.CAR ---
Addendum entered and electronically signed by Malou Alford MD 01/27/25 16:41:
I saw and examined the patient.
The RUG LAYER's note was reviewed and I agree with the note.
Comment: 79-year-old female with hypertension, dyslipidemia, mild aortic regurgitation, mild tricuspid regurgitation, hypothyroidism, anxiety and GERD, here with decreased appetite and diarrhea for 4 days. With this, she had developed atrial
fibrillation while in the emergency room. Rates have been quite elevated. Now under better control with IV diltiazem dose. She is typically on metoprolol as well. She is feeling better but still unwell. No chest pain or palpitations. No
shortness of breath. On exam lungs are clear to auscultation bilaterally she has an irregularly irregular rhythm, no lower extremity edema. Labs are significant for initial troponin of 0.3 trended down to 0.1. Overall, this is a new diagnosis of
atrial fibrillation, onset was in this hospitalization. She was initiated on an heparin drip. Will continue this until GI symptoms improve. Then this should be transition to Eliquis. For now continue IV diltiazem drip was transition to p.o.
agents once diarrhea improved. Would not attempt rhythm control during this hospitalization. Once she is improved, then could consider cardioversion as an outpatient as onset is known and she was initiated on anticoagulation immediately.
Echocardiogram today showed normal biventricular size and systolic function mild aortic regurgitation.She has had no chest pain or shortness of breath to suggest anything other than nonischemic myocardial injury in the setting of A-fib with RVR. No
further evaluation warranted. Care of her diarrhea as per Dr. Etienne. Will follow.
Original Note:
Consultation
Consultation Request
Date/Time Consultation Requested: 01/26/25 10p
Date/Time Consultation Performed: 01/27/25 9a
Requesting Provider: Silvana Castelan PA-C
Performing Provider: BRUNA Salazar for Dr. Alford
Reason for Consultation: new rapid Afib
Medical History
-
Chief Complaint: diarrhea, decreased appetite
History of Present Illness:
Mrs. Rooney is a 79-year-old female with hypertension, dyslipidemia, mild aortic regurgitation, mild tricuspid regurgitation, hypothyroidism, anxiety and GERD, who presents to the ER with complaints of decreased appetite, fatigue and diarrhea x 4
days. She is admitted to the hospitalist service and was noted to have rapid atrial fibrillation in the ER. She was started on IV diltiazem drip and IV Heparin. We are consulted for new onset rapid A-fib. Initial EKG in the ER showed sinus
tachycardia then she went into rapid Afib while in the ER. She denies feeling any irregular heart beats or palpitations. Her troponin trend 0.308, 0.224, 0.155. She denies any chest pain or shortness of breath.
Past Medical History
Past Medical History: Other (as above)
Past Surgical History: Orthopedic (Right wrist, right knee) and Other (Thyroidectomy)
Social History
Tobacco: Non-Smoker
Alcohol: Occasional
Family History
Family History: Reviewed & Not Pertinent
Allergies / Home Medications
Allergy/AdvReac Type Severity Reaction Status Date / Time
lisinopril Allergy Unknown Verified 01/26/25 20:20
�Medication �Instructions �Recorded �Confirmed �Type
Viviscal 1 tab PO BID Supplement 01/26/25 01/26/25 History
calcium carbonate 500 mg PO DAILY Supplement 01/26/25 01/26/25 History
ezetimibe 10 mg tablet (Zetia) 10 mg PO DAILY@1200 High 01/26/25 01/26/25 History
Cholesterol
glycopyrrolate 1 mg tablet 1 mg PO BID Hyperhidrosis, primary 01/26/25 01/26/25 History
fo
levothyroxine 88 mcg tablet 88 mcg PO DAILY Thyroid 01/26/25 01/26/25 History
(Synthroid)
metoprolol succinate 50 mg 50 mg PO DAILY Blood Pressure 01/26/25 01/26/25 History
tablet,extended release 24 hr
(Toprol XL)
omeprazole 20 mg tablet,delayed 20 mg PO DAILY Gastrointestinal 01/26/25 01/26/25 History
release Issue
sertraline 50 mg tablet 50 mg PO DAILY Mental 01/26/25 01/26/25 History
Health/Anxiety
vitamins A,C,C-uzaq-ogjwuh 2,148 1 tab PO BID Supplement 01/26/25 01/26/25 History
mcg-113 mg-45 mg-17.4 mg tablet
(PreserVision AREDS)
Review of Systems
-
History Source: Patient
All other systems: Negative unless noted
Physical Exam
Vital Signs
Temp Pulse Resp BP Pulse Ox
98.0 F 92 16 103/66 95
01/27/25 07:29 01/27/25 07:27 01/27/25 07:29 01/27/25 07:27 01/27/25 07:29
Lab Results
01/27/25 03:27
01/27/25 03:27
Troponin I 0.155 ng/ml H* D 01/27/25 03:27
Physical Exam
General: Well Developed and No Apparent Distress
HEENT: Normocephalic, Anicteric and Moist Mucous Membranes
Respiratory: Clear and Non Labored Respirations
Cardiac: S1/S2 and Irregular Rhythm (tachy at times)
Breast: Deferred by me
GI: Soft, Non Tender and Normal Bowel Sounds
Rectal: Deferred by Provider
Genito-urinary: No Costovertebral Tender
Musculoskeletal: No Clubbing, No Cyanosis and No Edema
Skin: Warm and Dry
Neuro: AO x 3
Psych: Calm
Impression / Plan
-
Afib - new onset in the ER, RVR.
- on IV Diltiazem drip.
- [id number] VASc scores is 4 (age, female, HTN), on IV Heparin for now.
- case management consult for Eliquis 5mg BID.
- continue Toprol, Diltiazem and IV Heparin for now.
- unaware of irregular heart rhythm, rate control for now then as outpatient can consider DCCV.
Non-ischemic myocardial injury - acute in setting of new rapid Afib.
- troponin trend 0.308, 0.224, 0.155
- check echo.
- denies chest pain.
HTN - stable.
- monitor with IV Diltiazem and diarrhea.
- IVF.
HLD - stable on Zetia.
Diarrhea - acute.
- sample sent to the lab.
- C-diff precautions.
- managed per hospitalist.
Hypothyroidism - on levothyroxine.
Anxiety - chronic, stable on sertraline.
Data Reviewed
-
EKG: Tracing Personally Visualized and interpreted ( EKG 01/26/25 rapid Afib, [id number]. )
Medical Tests (Nuc Med, Echo etc): Report Reviewed by me (Echo 04/01/2022: Normal biventricular size and function, EF 55-60%, mild aortic regurgitation, mild tricuspid regurgitation.)
Labs: Labs Reviewed by me
Old Records: Reviewed
[2025-01-27] MEDS: NSS 1000 IV ×2 (09:35→19:09)
[2025-01-27] MEDS: PEPCID 20 MG PO (09:35)
[2025-01-27] MEDS: ZOLOFT 50 MG PO (09:36)
[2025-01-27] MEDS: TOPROL XL 50 MG PO ×2 (09:45→18:02)
--- NOTE | 2025-01-27 10:25 | PTCARENOTE ---
Patient resting in bed this morning with IV cardizem infusing at 10mg/hr, IV heparin infusing at 1050 units/hr and IV fluids at 100ml/hr. Patient is still having liquid stools, continent and ambulating to the bathroom with assistance. Remains in AF
with rate 80-100's at rest. Patient is afebrile with intermittent chills and diaphoresis. Patient does normally take medication for excessive perspiration. Echo done at the bedside, sitting oob in the chair now- patient's daughter Paola in visiting.
[2025-01-27 11:13] LABS: APTT 67.8 Sec (23.4-35.0)
[2025-01-27] MEDS: ZETIA 10 MG PO (11:53)
--- NOTE | 2025-01-27 14:10 | CM ---
Chart reviewed. Patient is independent of ADLS, lives alone in a [address], 1st floor set up, [address], has been recently ambulating with a SPC due to weakness from dehydration. Patient is not current with [facility], but is interested. [facility]
Plan is for the patient to return home with [facility]. CM to follow
--- NOTE | 2025-01-27 16:47 | CM ---
Pricing on Eliquis 5mg BID is covered under the patient's prescription plan at $21 for a 30 day supply. Patient is agreeable to cost
--- NOTE | 2025-01-27 16:52 | PTCARENOTE ---
While doing routine VS, noted to be in SR. EKG done which confirmed SR. Temp 101.9, notified Dr. Parada re: temp and conversion to SR. TT to cardiology re: rhythm. Will medicate with tylenol for fever. Patient offers no complaints.
[2025-01-27] MEDS: HEPARIN 25000 UNITS/250 ML IV (19:09)
--- NOTE | 2025-01-27 20:14 | PTCARENOTE ---
Received pt @ change of shift. AAOx3. VSS-- NSR on monitor. Pt still having diarrhea, but reports the amounts are becoming smaller. NSS is running @ 100 mL/hr and heparin gtt running @ 1250 units/hr through left AC. Bowel sounds are normal @ this
time. Pt reports feeling very 'drained, but way better than when she came in last night.' Discussed plan of care for evening. Pt verbalizes understanding. Call marques within reach.
[2025-01-28] VITALS (18 sets, daily range): BP systolic 104–135; BP diastolic 53–106; BMI 28.0
[2025-01-28 00:58] LABS: APTT 69.6 Sec (23.4-35.0)
--- NOTE | 2025-01-28 01:36 | PTCARENOTE ---
Addendum entered by Irene Rosen RN 01/28/25 06:24:
Pt has gone in and out of A-Fib, ventricular bigeminy, and normal sinus rhythm all evening. Pt has not sustained higher than 120s for more than a minute @ this time. When coughing, pt had HR of +170 that came right back down.
Original Note:
Around 01:20, pt went back into an Afib rhythm with rates around 105-110. Informed Shine Johns NP. Told to observe if not sustainable in higher rate. Pt asymptomatic @ this time.
[2025-01-28] MEDS: NSS 1000 IV (05:25)
[2025-01-28] MEDS: SYNTHROID 88 MCG PO (06:07)
--- NOTE | 2025-01-28 06:22 | PTCARENOTE ---
During med administration, RN heard wheezing while pt breathing. Pt denies SOB but could feel wheeziness and has started coughing. Pulse ox was 90%. RN put oxygen on for pt comfort.
[2025-01-28 07:18] LABS: % Basophils 0.5 % (0-2); % Eosinophils 0.1 % (0-6); % Lymphocytes 4.7 % (20.5-51.1); % Neutrophils 87.7 % (42.2-75.2); Absolute Basophils 0.1 10^3/uL (0-0.2); Absolute Immature Granulocytes 0.2 10^3/uL (0-0.05); Absolute Lymphocytes 0.7 10^3/uL (1.2-3.4); Absolute Monocytes 0.9 10^3/uL (0.1-0.6); Absolute Neutrophils 13.6 10^3/uL (1.4-6.5); Hematocrit 35.3 % (37.0-47.0); Hemoglobin 12.4 g/dL (12.0-16.0); Mean Corp Hgb Conc. 35.1 g/dL (33.0-37.0); Mean Corpuscular Hgb 30.2 pg (27.0-31.0); Mean Corpuscular Volume 86.1 fL (81.0-99.0); Mean Platelet Volume 10.1 fL (7.4-10.4); Nucleated Red Blood Cells % 0 %; Platelet Count 169 10^3/uL (130-400); Red Cell Dist. Width 13.9 % (11.5-14.5); White Blood Cell Count 15.5 10^3/uL (4.8-10.8)
[2025-01-28 07:58] LABS: APTT 114.2 Sec (23.4-35.0)
--- NOTE | 2025-01-28 08:20 | PTCARENOTE ---
PTT came back at 114.2. Decreased her heparin gtt to 1250 units/hr per protocol.
[2025-01-28 08:21] LABS: Blood Urea Nitrogen 7 mg/dl (7-17); Calcium 7.9 mg/dl (8.4-10.2); Carbon Dioxide 19 mmol/L (22-30); Chloride 106 mmol/L (98-107); Estimated Creatinine Clearance 66 ml/min; Glucose 115 mg/dl (70-99); Magnesium 2.1 mg/dl (1.6-2.3); Potassium 3.1 mmol/L (3.5-5.1); Sodium 135 mmol/L (135-145); eGFR > 60.00
[2025-01-28] MEDS: TOPROL XL 50 MG PO ×2 (08:45→19:59)
[2025-01-28] MEDS: ZOLOFT 50 MG PO (08:45)
[2025-01-28] MEDS: PEPCID 20 MG PO (08:45)
[2025-01-28] MEDS: KCL 40 MEQ PO ×3 (09:03→20:00)
--- NOTE | 2025-01-28 09:05 | PTCARENOTE ---
Addendum entered by Briana Rubio RN 01/28/25 10:03:
She also has a frequent non-productive cough.
Original Note:
The patient's potassium was 3.[address] Whitt. Ordered put in for 40 meq of po Kcl. Kcl given as ordered. She appeared dyspneic at rest. Oxygen sat on RA was 90%. Replaced O2 back on the patient. Her lung sound were clear. She did
complain of lightheadedness upon rising. Her heart rates have been fluctuating between the low 100s and as high as 150s. Rapid Afib is noted on the monitor. I asked her to not get up unless she has assistance. The patient agreed. She continues to
have multiple yellow liquid stools.
--- NOTE | 2025-01-28 10:54 | W.PN.HOSP.TC ---
Today's Communication/Plan
-
IV Abx
CT study
Assessment / Plan
Assessment / Plan
Physical Exam
General: Not in acute distress
HEENT: Normocephalic, Atraumatic
Respiratory: Clear to Auscultation Bilaterally
Cardiac: S1/S2, Tachycardia
GI: Soft and Non Tender. Positive bowel sounds.
Musculoskeletal: No Cyanosis
Skin: Warm and Dry
Neuro: Awake, Alert, Oriented and Nonfocal/grossly intact
Psych: Calm
Assessment/Plan
79 y/o female past medical history of hypertension, hypothyroidism and anxiety who presented with headache, fever, new onset A fib, dizziness and diarrhea.
#New-Onset Atrial Fibrillation with Rapid Ventricular Response
-Monitor in IVU
Still tachycardia due to ongoing GI issue/ fever
-Patient has not taken her Toprol XL for past few days - resumed
- Off Cardizem drip, to start on oral Cardizem also
[id number] around 4 for age, sex, HTN, started on IV Heparin, ok to switch to oral AC
can dc heparin gtt
-Consulted Cardiology
#Elevated Troponin, suspect non-ischemic myocardial injury in setting of rapid a-fib
-Continue to trend troponin
-Checked Echocardiogram, no regional wall motion abnormalities, no chest pain
Troponin trending down
# SIRS with Fever, diarrhea, leukocytosis, fever , she is meeting criteria of infection/sepsis
will do Blood culture
Add IV Rocephin
Will do CT study with IV & Oral contras( pt denies allergy) but likely Diarrhea, suspect viral gastroenteritis. Noro and C Diff are negative
- ok for diet
F /w CT study
# Hypokalemia
Replace
# Hyperhidrosis
-Hold home Glycopyrrolate for now given anticholinergic effects which could have contributed to patient's symptoms
-Patient's daughter did mention that patient is sweating more, but patient does have chronic sweating more
#Hyponatremia, mildly likely hypovolemic ic in nature
Resolved with IVF
#Essential Hypertension
-Continue Toprol with hold parameters
#Hyperlipidemia
-Continue Zetia
#Post-Surgical Hypothyroidism
-Continue levothyroxine
#Anxiety
-Continue Zoloft
DVT proph: Heparin Drip
Code Status: Full Code
Total time spent to see the patient, examine the patient, review data and lab result, discuss treatment plan with the patient, nursing staff around 55 minutes
Anticipated Discharge: > 48 hours
Subjective/Interval History
-
Date of Service: January 28, 2025
She feels better but still having some SOB and diarrhea
Objective Data
-
Labs:
Laboratory Results
01/28/25 01/28/25 01/28/25
00:31 07:09 14:20
WBC 15.5 H
Hgb 12.4
Hct 35.3 L
Plt Count 169
APTT 69.6 H 114.2 H Pending
Sodium 135
Potassium 3.1 L
Chloride 106
Carbon Dioxide 19 L
BUN 7
Creatinine 0.7
Glucose 115 H
Calcium 7.9 L
Vital Signs:
Vital Signs
Temp Pulse Resp BP Pulse Ox
99.2 F 119 20 128/84 93
01/28/25 07:01 01/28/25 07:01 01/28/25 07:01 01/28/25 07:01 01/28/25 08:40
I&O
01/27/25 01/28/25 01/29/25
06:59 06:59 06:59
Intake Total 850.0 / 850.0 720 / 720
Output Total 100 / 100
Balance 750.0 / 750.0 720 / 720
--- NOTE | 2025-01-28 11:05 | W.PN.CD ---
Today's Communication / Plan
-
Replete K+ more
One dose of IV Lasix
Move to PO Eliquis, stop IV heparin
Add PO Dilt IR for more rate control
Impression / Plan
-
Admitted for Diarrhea, significant, w/u and Rx per hospitalist
Afib - new onset in the ER, RVR.
- Still fast on metoprolol ER 50 bid. I have added short acting Dilt 60 q6
- Move to PO Eliquis (discussed with hospitalist)
- No overt symptoms from AF RVR
Dyspnea and cough, few crackles at lung basses
- On IVF and in rapid AFib
- Will get more rate control, stop IVF, and give one dose of IV Lasix
Hypokalemia
- Likely from diarrhea and IVF
- Replete and monitor
Non-ischemic myocardial injury - acute in setting of new rapid Afib, peak troponin 0.308
HTN
HLD
Hypothyroidism
Anxiety
Subjective: Afib still fast, 130s, Daughter notes new labored breathing. Still with diarrhea
Echo : Normal LV/RV. Mild AR. Stable from 04/01/22.
Physical Exam
Vital Signs/Labs
Vital Signs
Temp Pulse Resp BP Pulse Ox
99.2 F 119 20 128/84 93
01/28/25 07:01 01/28/25 07:01 01/28/25 07:01 01/28/25 07:01 01/28/25 08:40
01/27/25 01/28/25 01/29/25
06:59 06:59 06:59
Actual Weight 71.1 kg 74 kg
01/28/25 07:09
APTT 114.2 Sec (23.4-35.0) H 01/28/25 07:09
Magnesium 2.1 mg/dl (1.6-2.3) 01/28/25 07:09
LAB Results
01/26/25 01/26/25 01/27/25
17:09 23:07 03:27
Troponin I 0.308 H* 0.224 H* D 0.155 H* D
Physical Exam
Constitutional: No acute distress
EENT: Anicteric
Cardiovascular: Rhythm/rate is irregular (fast) and S1S2 is normal
Respiratory: Respiratory effort normal and Crackles Present (at bases)
GI: Soft and Distention absent
Neuro/Psych: AO x 3
Data Reviewed
-
Date of Service: January 28, 2025
[2025-01-28] MEDS: ROCEPHIN 1000 MG IV (11:28)
[2025-01-28] MEDS: STERILE WATER FOR INJECTION 10 ML IV (11:28)
[2025-01-28] MEDS: ZETIA 10 MG PO (11:28)
[2025-01-28] MEDS: LASIX 20 MG IV ×2 (11:28→20:01)
[2025-01-28] MEDS: FLUSH (NSS) 3 FLUSH IV (11:29)
[2025-01-28] MEDS: OMNIPAQUE 50 ML PO (11:32)
[2025-01-28] MEDS: CARDIZEM 60 MG PO (12:16)
--- NOTE | 2025-01-28 13:15 | PTCARENOTE ---
The patient's daughter called me into the room because she was concerned for her mom. The daughter thought her mom was hallucinating. The daughter stated that the patient was grabbing at things that were not there. When I question the patient, she
said 'I had my eyes closed and I was moving my fingers as if I was on my computer.' I asked her if she saw her computer or though she was actually typing on it and she said 'no.' During this time her heart rates continued to fluctuate between the
120s and as high as 180 despite given 60mg of Diltazem po at 1216. I spoke with Dr. Whitt about the daughter's concerns. Diltiazem po was discontinued and a gtt was ordered.
[2025-01-28] MEDS: CARDIZEM 125 IV ×2 (13:23→22:58)
[2025-01-28] MEDS: FLUSH (NSS) 1 FLUSH IV (13:23)
[2025-01-28 15:16] LABS: APTT 42.3 Sec (23.4-35.0)
[2025-01-28 18:18] LABS: Blood Urea Nitrogen 5 mg/dl (7-17); Calcium 7.9 mg/dl (8.4-10.2); Carbon Dioxide 22 mmol/L (22-30); Chloride 102 mmol/L (98-107); Estimated Creatinine Clearance 66 ml/min; Glucose 133 mg/dl (70-99); Potassium 3.2 mmol/L (3.5-5.1); Sodium 132 mmol/L (135-145); eGFR > 60.00
[2025-01-28] MEDS: ELIQUIS 5 MG PO (20:01)
[2025-01-28] MEDS: KCL 20 MEQ PO (20:03)
--- NOTE | 2025-01-28 22:11 | PTCARENOTE ---
Assumed care of the pt @ 1900. Pt was up in chair with daughter in the room. Pt A fib on the monitor HR 92-130. BP stable. Hep gtt stopped and 1 st dose Eliquis given Cardizem gtt infusing @ 15 mg/ HR + ZACARIAS. + diarrhea. Pt was updated with POC and
instructed on use of call marques prior to ambulation. Pt verbalized understanding. Call marques within reach.
[2025-01-29] VITALS (14 sets, daily range): BP systolic 90–131; BP diastolic 55–78; PULSE 81–96; BMI 27.1
[2025-01-29] MEDS: TYLENOL 1000 MG PO ×2 (03:37→19:51)
--- NOTE | 2025-01-29 03:56 | W.PN.UPDATE ---
Update Note
Progress Note Update
Nursing reports patient had an unwitnessed fall. She was found at bottom of her bed on her right side. Denies head strike but did land on her right side. She denies pain. Returned to her bed. We encouraged her to notify us if she had any pain or
change in sensorium. She is in agreement.
[2025-01-29 04:44] LABS: Blood Urea Nitrogen 7 mg/dl (7-17); Calcium 7.6 mg/dl (8.4-10.2); Carbon Dioxide 21 mmol/L (22-30); Chloride 103 mmol/L (98-107); Estimated Creatinine Clearance 66 ml/min; Glucose 136 mg/dl (70-99); Potassium 3.4 mmol/L (3.5-5.1); Sodium 136 mmol/L (135-145); eGFR > 60.00
[2025-01-29 05:01] LABS: % Basophils 0.5 % (0-2); % Eosinophils 0.1 % (0-6); % Immature Granulocytes 3.1 % (0-0.5); % Lymphocytes 3.8 % (20.5-51.1); % Monocytes 5.1 % (1.7-9.3); % Neutrophils 87.4 % (42.2-75.2); Absolute Basophils 0.1 10^3/uL (0-0.2); Absolute Immature Granulocytes 0.6 10^3/uL (0-0.05); Absolute Lymphocytes 0.7 10^3/uL (1.2-3.4); Absolute Neutrophils 16.5 10^3/uL (1.4-6.5); Hematocrit 37.3 % (37.0-47.0); Hemoglobin 13.1 g/dL (12.0-16.0); Mean Corp Hgb Conc. 35.1 g/dL (33.0-37.0); Mean Corpuscular Hgb 29.9 pg (27.0-31.0); Mean Corpuscular Volume 85.2 fL (81.0-99.0); Mean Platelet Volume 10.3 fL (7.4-10.4); Nucleated Red Blood Cells % 0 %; Platelet Count 222 10^3/uL (130-400); Red Blood Cell Count 4.38 10^6/uL (4.20-5.40); Red Cell Dist. Width 14.1 % (11.5-14.5); White Blood Cell Count 18.8 10^3/uL (4.8-10.8)
[2025-01-29] MEDS: SYNTHROID 88 MCG PO (06:09)
--- NOTE | 2025-01-29 06:28 | FALL ---
Description of Fall: Pt was an unwitnessed fall about 0315. After hearing noise coming from the room went to check on the pt and she was on the floor on right side of the bed laying on her right side. Pt stated ' my legs became weak and lost my
footing' Pt denied hitting head or loc. Pt was assisted back to bed and Ignacio Childers at bedside to evaluate.
Injuries Noted: Pt c/o mild back pain
Action Taken: Bed alarm placed. Tylenol given for mild pain.
Name of Provider Notified: Eliot Childers TRAFFIC SIGNAL REPAIRER
--- NOTE | 2025-01-29 07:41 | W.PN.CD ---
Today's Communication / Plan
-
Agree with adding PO dilt to the PO metoprolol and stopping IV dilt
Agree with Lasix and KCl
Still being evaluated for diarrhea
Will need f/u of abnormal CT findings
Impression / Plan
-
Admitted for Diarrhea, significant, w/u and Rx per hospitalist
Afib - new onset in the ER, RVR.
- Was fast on metoprolol ER 50 bid and now on IV dilt => going for dilt ER 120 bid and the metoprolol
- Now on PO Eliquis (discussed with hospitalist)
- No overt symptoms from AF RVR => but perhaps acute heart failure as daughter noted labored breathing and on exam she had crackles and CT has pleural effusions
Dyspnea and cough, few crackles at lung basses
- Was on IVF and in rapid AFib => off IV fluids and has had IV Lasix x2 yesterday
- Pt never felt SOB, this AM no crackles
- Continue with rate control and IV diuresis
Resolved hypokalemia
- Likely from diarrhea and IVF
- Continue PO KCl while on IV Lasix
Abnormal CT chest/abdomen
- Will need f/u CT chest as per radiology
Non-ischemic myocardial injury - acute in setting of new rapid Afib, peak troponin 0.308
HTN
HLD
Hypothyroidism
Anxiety
Subjective: Afib still fast, 130s, Daughter noted new labored breathing on 01/28/225 but pt never noticed. Still with diarrhea
Echo : Normal LV/RV. Mild AR. Stable from 04/01/22.
CT chest/abdomen 01/28/2025:
Bilateral lower lobe opacification with air bronchograms compatible with atelectasis and/or pneumonia with small bilateral pleural effusions. Right perihilar opacification extending into the right upper lobe which may represent pneumonitis with
accompanying small to moderate right hilar and small mediastinal lymph nodes. Unfortunately, malignancy centrally in the right hemithorax cannot be excluded. Recommend short-term follow-up Chest CT. Small pericardial effusion. 2.7 cm simple right
lobe hepatic cyst. Cholelithiasis. No findings to suggest biliary tract dilatation. No right lower quadrant inflammatory changes, intestinal obstruction or free air.
Physical Exam
Vital Signs/Labs
Vital Signs
Temp Pulse Resp BP Pulse Ox
97.5 F 73 26 96/69 93
01/29/25 07:28 01/29/25 07:28 01/29/25 07:28 01/29/25 07:28 01/29/25 07:28
01/28/25 01/29/25 01/30/25
06:59 06:59 06:59
Actual Weight 74 kg
01/29/25 04:06
01/29/25 04:06
APTT 42.3 Sec (23.4-35.0) H 01/28/25 14:54
Magnesium 2.1 mg/dl (1.6-2.3) 01/28/25 07:09
LAB Results
01/26/25 01/26/25 01/27/25
17:09 23:07 03:27
Troponin I 0.308 H* 0.224 H* D 0.155 H* D
Physical Exam
Constitutional: No acute distress
EENT: Anicteric
Cardiovascular: Rhythm/rate is irregular and S1S2 is normal
Respiratory: Respiratory effort normal and Lungs clear to auscul.
GI: Soft and Distention absent
Neuro/Psych: Alert
Data Reviewed
-
Date of Service: January 29, 2025
[2025-01-29] MEDS: CARDIZEM CD 120 MG PO ×2 (08:06→20:16)
--- NOTE | 2025-01-29 08:43 | PTCARENOTE ---
Orthostatic vital signs done as the patient reports dizziness and lightheadedness upon standing
lying - 93/65, HR 91
sitting 94/55, HR 81
standing 101/61, HR 96
[2025-01-29] MEDS: LASIX 20 MG IV ×2 (08:50→20:15)
[2025-01-29] MEDS: KCL 40 MEQ PO ×2 (08:50→20:15)
[2025-01-29] MEDS: FLUSH (NSS) 2 FLUSH IV ×2 (08:50→12:52)
[2025-01-29] MEDS: ELIQUIS 5 MG PO ×2 (08:50→20:15)
[2025-01-29] MEDS: ZOLOFT 50 MG PO (08:50)
[2025-01-29] MEDS: PEPCID 20 MG PO (08:50)
[2025-01-29] MEDS: TOPROL XL PO (08:51)
--- NOTE | 2025-01-29 09:01 | W.PN.HOSP.TC ---
Today's Communication/Plan
-
c/w Lasix
IV Rocephin
PT/OT
K replacement
Advancing diet
Assessment / Plan
Assessment / Plan
Physical Exam
General: Not in acute distress
HEENT: Normocephalic, Atraumatic
Respiratory: basal rales right side > left side, no wheezes.
Cardiac: S1/S2, no Tachycardia
GI: Soft and Non Tender. Positive bowel sounds.
Musculoskeletal: No Cyanosis
Skin: Warm and Dry
Neuro: Awake, Alert, Oriented and Nonfocal/grossly intact
Psych: Calm
Assessment/Plan
79 y/o female past medical history of hypertension, hypothyroidism and anxiety who presented with headache, fever, new onset A fib, dizziness and diarrhea.
#New-Onset Atrial Fibrillation with Rapid Ventricular Response. Patient was not taking Toprol XL for past few days - resumed
-Monitored in IVU
better HR, stopped IV Cardizem gtt, change to oral Cardizem CD 120 mg BID, c/w Metoprolol.
[id number] around 4 for age, sex, HTN, started on IV Heparin, ok to switch to oral AC
Echo 01/27/25 showed LVEF 60-65%, Mild AI.
-Consulted Cardiology, help appreciated.
# Acute hypoxic respiratory failure
Hypoxia is resolving, weaning off nasal O2
Reviewed CT chest with IV contrast course fo diuretic therapy, will need to repeat images
Not a smoker.
Appreciate pulmonary help
#Elevated Troponin, suspect non-ischemic myocardial injury in setting of rapid a-fib
-Continue to trend troponin
-Checked Echocardiogram, no regional wall motion abnormalities, no chest pain
Troponin trending down
# TME
Resolved
Had a fall last night, requested bed alarm. She seems back to baseline today, fully oriented.
#Presented with Fever, diarrhea, leukocytosis, fever , she is meeting criteria of sepsis POA, on admission source was GI.
Can not rule out pneumonia. CT reviewed Atelectasis Vs pneumonia,
Negative Blood culture, await to finalize.
c/w IV Rocephin
She also had Diarrhea, suspect viral gastroenteritis. Noro and C Diff are negative
- ok for diet, she feels hungry, tolerated liquids well.
#Leukocytosis, seems reactive
Afebrile.
Good clinical improvement.
# Small bilateral pleural effusion, with acute pulmonary edema ( non cardiogenic).
ok to c/w Lasix.
# Non-ischemic myocardial injury - acute in setting of new rapid Afib, peak troponin 0.308
# Hypokalemia
Replaced
# Hyperhidrosis
-Hold home Glycopyrrolate for now given anticholinergic effects which could have contributed to patient's symptoms
-Patient's daughter did mention that patient is sweating more, but patient does have chronic sweating more
#Hyponatremia, mildly likely hypovolemic ic in nature
Resolved with IVF
#Essential Hypertension
-Continue current medications.
#Hyperlipidemia
-Continue Zetia
#Post-Surgical Hypothyroidism
-Continue levothyroxine
#Anxiety
-Continue Zoloft
DVT proph: Heparin Drip
Code Status: Full Code
Total time spent to see the patient, examine the patient, review data and lab result, discuss treatment plan with the patient, daughters, cardiology, nursing staff around 57 minutes
Anticipated Discharge: > 48 hours
Subjective/Interval History
-
Date of Service: January 29, 2025
She feels better, less sob
Less diarrhea
NO abd pain
Objective Data
-
Labs:
Laboratory Results
01/29/25
04:06
WBC 18.8 H
Hgb 13.1
Hct 37.3
Plt Count 222 D
Sodium 136
Potassium 3.4 L
Chloride 103
Carbon Dioxide 21 L
BUN 7
Creatinine 0.7
Glucose 136 H
Calcium 7.6 L
Vital Signs:
Vital Signs
Temp Pulse Resp BP Pulse Ox
97.5 F 90 26 95/60 93
01/29/25 07:28 01/29/25 08:51 01/29/25 07:28 01/29/25 08:51 01/29/25 07:28
I&O
01/28/25 01/29/25 01/30/25
06:59 06:59 06:59
Intake Total 720 / 720 1839
Balance 720 / 720 1839
--- NOTE | 2025-01-29 12:30 | CON.PUL ---
Consultation
Consultation Request
Date/Time Consultation Requested: 01/29/2025636
Date/Time Consultation Performed: 01/29/2025 - 1124
Requesting Provider: Dr. Whitt
Performing Provider: Dr. Howell
Reason for Consultation: Hypoxia/Abnormal CT Chest
Medical History
-
Chief Complaint: Head congestion, cough, diarrhea and poor appetite
History of Present Illness:
79-year-old female with a past medical history of GERD, anemia, iron deficiency, thyroid disease, hyperlipidemia, hypertension and anxiety who presents with head congestion, cough, diarrhea and reduced appetite for 2 days. She was initially
afebrile to 98.9 �F. Initial WBC 16.2, sodium 131, chloride 96, troponin 0.308, UA showed + ketones. Initial flu swab negative. Urine culture collected. Due to headache and balance issues, CT head obtained showing no acute intracranial
abnormality. She was also in new onset A-fib with RVR. She initially was admitted to the hospitalist service for rate control, given IVF, and stool studies were ordered. She had required supplemental oxygen initially at 2 L and then on 01/29 oxygen
requirements increased to 4 L/min. Due to her hypoxia, diarrhea and fevers, CT chest, abdomen/pelvis was done on 02/24/2025 showing bilateral pleural effusions, right perihilar opacity extending into the right upper lobe with right hilar and small
mediastinal lymphadenopathy � unable to rule out malignancy. Also a small pericardial effusion. Pulmonary service now consulted for additional recommendations.
When I saw the patient she was resting in bed in no acute distress. Patient's daughter, Paola, present at bedside. According to the daughter, patient's been coughing for few days, which has been dry, and she has been increasingly more weak and
fatigued. Heart rate currently 108, BP 105/59 and saturating 96% on 2 L/min nasal cannula. Fever this afternoon to 100.4 �F. Patient otherwise feels okay although her biggest complaint is she is having coughing spells and would like something to
help with that. She otherwise denies SOB at rest, although it is hard to put into words if she feels short of breath.
PMHx: GERD, anemia, iron deficiency, thyroid disease, hyperlipidemia, hypertension, anxiety, arthritis
PSHx: Thyroidectomy, ORIF right wrist, cataract surgery, right knee replacement
Past Medical History
Past Medical History: Other (Above as per HPI)
Past Surgical History: Other (Above as per HPI)
Social History
Tobacco: Non-smoker
Alcohol: Occasional
Drug: None
Employment: Retired
Family History
Family History: CAD (Father), Hypertension (Father) and Other (Father: Hyperlipidemia; mother: Thyroid disorder)
Allergies / Home Medications
Allergies
Allergy/AdvReac Type Severity Reaction Status Date / Time
lisinopril Allergy Unknown Verified 01/26/25 20:20
Home Medications
�Medication �Instructions �Recorded �Confirmed �Last Taken �Type
Viviscal 1 tab PO BID Supplement 01/26/25 01/26/25 3 Days Ago History
~01/23/25
calcium carbonate 500 mg PO DAILY Supplement 01/26/25 01/26/25 3 Days Ago History
~01/23/25
ezetimibe 10 mg tablet (Zetia) 10 mg PO DAILY@1200 High 01/26/25 01/26/25 3 Days Ago History
Cholesterol ~01/23/25
glycopyrrolate 1 mg tablet 1 mg PO BID Hyperhidrosis, primary 01/26/25 01/26/25 3 Days Ago History
fo ~01/23/25
levothyroxine 88 mcg tablet 88 mcg PO DAILY Thyroid 01/26/25 01/26/25 3 Days Ago History
(Synthroid) ~01/23/25
metoprolol succinate 50 mg 50 mg PO DAILY Blood Pressure 01/26/25 01/26/25 3 Days Ago History
tablet,extended release 24 hr ~01/23/25
(Toprol XL)
omeprazole 20 mg tablet,delayed 20 mg PO DAILY Gastrointestinal 01/26/25 01/26/25 3 Days Ago History
release Issue ~01/23/25
sertraline 50 mg tablet 50 mg PO DAILY Mental 01/26/25 01/26/25 3 Days Ago History
Health/Anxiety ~01/23/25
vitamins A,C,B-kulj-hkraii 2,148 1 tab PO BID Supplement 01/26/25 01/26/25 3 Days Ago History
mcg-113 mg-45 mg-17.4 mg tablet ~01/23/25
(PreserVision AREDS)
ipratropium bromide 21 mcg (0.03 2 spray intranasal BID 01/27/25 01/27/25 Unknown History
%) nasal spray
Review of Systems
-
History Source: Patient
All other systems: Negative unless noted
Vitals / Labs / Diagnostic Testing
Vital Signs
Temp Pulse Resp BP Pulse Ox
97.5 F 90 26 95/60 93
01/29/25 07:28 01/29/25 08:51 01/29/25 07:28 01/29/25 08:51 01/29/25 07:28
Lab Data
01/29/25 04:06
01/29/25 04:06
Laboratory Results
01/28/25
14:54
APTT 42.3 H
Microbiology
01/27/25 00:45 Feces/Stool Salmonella/Shigella Culture - Preliminary
Culture in Progress
01/27/25 00:45 Feces/Stool Campylobacter Culture - Preliminary
Culture in Progress
01/26/25 17:09 Urine Urine Culture - Final
01/27/25 00:45 Feces/Stool C. difficile GDH Antigen & Toxins - Final
Negative for toxigenic C.difficile
01/27/25 00:45 Feces/Stool - Final
Negative for Norovirus GI and GII.
01/26/25 17:09 Nasal Swab Influenza Types A & B (GABO) - Final
Negative for Influenza A & B, NAAT
Negative results must be combined with clinical observations
and patient history.
Nucleic Acid Amplification test (NAAT)performed on the
[employer] ID NOW platform.
Diagnostic Testing:
Physical Exam
-
HEENT: Normocephalic, Anicteric and Moist Mucous Membranes
Cardiovascular: Irregular Rhythm and Peripheral Edema (Trace lower extremity edema bilaterally (R >L))
Respiratory: Wheeze (negative), Rales (Bibasilar), Rhonchi (negative) and Non-Labored Respirations
GI: Soft, Non Distended, Non Tender and Normal Bowel Sounds
Neurology: AO x 3 and Tremors (negative)
Skin: Warm and Dry
General: Respiratory Distress (negative), Comfortable and Sweats (negative)
Assessment
-
Assessment: 79-year-old female with a past medical history of GERD, anemia, iron deficiency, thyroid disease, hyperlipidemia, hypertension and anxiety who presents with head congestion, cough, diarrhea and reduced appetite for 2 days. She was
initially afebrile to 98.9 �F. Initial WBC 16.2, sodium 131, chloride 96, troponin 0.308, UA showed + ketones. Initial flu swab negative. Urine culture collected. Due to headache and balance issues, CT head obtained showing no acute intracranial
abnormality. She was also in new onset A-fib with RVR. She initially was admitted to the hospitalist service for rate control, given IVF, and stool studies were ordered. She had required supplemental oxygen initially at 2 L and then on 01/29 oxygen
requirements increased to 4 L/min. Due to her hypoxia, diarrhea and fevers, CT chest, abdomen/pelvis was done on 02/24/2025 showing bilateral pleural effusions, right perihilar opacity extending into the right upper lobe with right hilar and small
mediastinal lymphadenopathy � unable to rule out malignancy. Also a small pericardial effusion. Pulmonary service now consulted for additional recommendations.
Chronic conditions [employer]AT [employer]: GERD, anemia, iron deficiency, hypothyroidism, hyperlipidemia, hypertension, anxiety, arthritis
Impression:
#Acute hypoxic respiratory failure due to acute decompensated heart failure in the setting of suspected right perihilar pneumonia; unable to rule out malignancy
#New onset A-fib with RVR
#Pneumonia - right perihilar region and possibly lower lobes, although lower lobes is likely compressive atelectasis and not an infection
#Small pericardial effusion seen on CT chest 01/28/2025
#Cholelithiasis
#Elevated troponin � likely due to demand ischemia with type II NV
#Febrile illness
#Diarrhea
#Hypothyroidism
Plan:
- Patient had a CT chest/abdomen/pelvis on 01/28/2025 showing a right perihilar consolidative opacity and additional opacities in the right middle lobe + lingula, and bilateral pleural effusions with adjacent bibasilar consolidative opacities --> she
will need a repeat CT Chest in 4-6 weeks to assure that her right perihilar consolidation improves, otherwise will need to discuss tissue biopsy
- The only prior imaging I have found is a CXR from March 2007, and there were no parenchymal abnormalities at that time that I can appreciate
- Continue with antibiotics with ceftriaxone; will treat for 7 days assuming she continues to clinically improve and remains afebrile for 48 hours prior to stopping
- Check sputum culture if she can produce a decent sample; check urine antigens for Legionella + strep pneumonia; check MRSA swab; blood cultures collected 01/28 shows NGTD
- Trend WBC and monitor for fevers; treat fevers with tylenol
- Start Tessalon Perles + prn codeine cough syrup due to bothersome coughing spells; no need for mucolytics at this time as her cough is dry and she has no chest congestion
- Continue with diuretics to maintain net negative fluid balance as tolerated
- Heart rate control with goal HR <110; continue metoprolol + Cardizem
- Replete electrolytes with K>4, Mg>2
- Cardiology on board and recommendations appreciated
- Troponin peaked at 0.308 on 01/26 - no longer need to continue trending at this time
- Given that she has been increasingly fatigued lately, check VBG to assess pH + pCO2
- Continue to monitor diarrhea; C. difficile testing was negative; Shiga toxin test is pending; Campylobacter + Salmonella/Shigella cultures both negative
- Maintain SpO2 >90-94% with supplemental O2 and wean down as tolerated; if resting SaO2 is <96% on room air then check home O2 assessment prior to discharge
- prn nebulized bronchodilators - not currently bronchospastic
- Incentive spirometer encouraged q1hr while awake
- Trend H/H and transfuse if needed to keep Hb>7g/dL; keep plt>20k, unless there is concern for bleeding then keep plt>50k
- Maintain euglycemia with goal BG >100 and <180
- DVT ppx: Eliquis due to A-fib
Pulmonary service will continue to follow along. Outpatient pulmonary follow-up will also be arranged for full PFTs and symptom management/monitoring.
Data:
CT Chest/Abd/Pelvis 01/28/2025:
Bilateral lower lobe opacification with air bronchograms compatible with atelectasis and/or pneumonia with small bilateral pleural effusions.
Right perihilar opacification extending into the right upper lobe which may represent pneumonitis with accompanying small to moderate right hilar and small mediastinal lymph nodes. Unfortunately, malignancy centrally in the right hemithorax cannot
be excluded. Recommend short-term follow-up Chest CT.
Small pericardial effusion.
2.7 cm simple right lobe hepatic cyst.
Cholelithiasis. No findings to suggest biliary tract dilatation.
No right lower quadrant inflammatory changes, intestinal obstruction or free air.
Total time spent today was 58 minutes for this encounter. Time includes reviewing laboratory test/imaging results, reviewing pertinent medical records, obtaining and reviewing medical history, performing an appropriate exam, ordering medications,
tests and procedures. Time also includes documentation of this encounter, coordinating patient care and communicating with other healthcare professionals. Total time does not include separately billed tests performed on this date of service.
[2025-01-29] MEDS: ZETIA 10 MG PO (12:52)
[2025-01-29] MEDS: ROCEPHIN 1000 MG IV (12:52)
[2025-01-29] MEDS: STERILE WATER FOR INJECTION 10 ML IV (12:52)
--- NOTE | 2025-01-29 16:29 | PTCARENOTE ---
In to do the patient's vitals. The patient was bundled up in 3 blankets. Her temperature was 100.4. She had no complaints of feeling feverish. She removed a couple of blankets and I rechecked her temperature and it was 99.7.
--- NOTE | 2025-01-29 19:25 | PTCARENOTE ---
The patient converted to NSR at 1312 this afternoon.
[2025-01-29] MEDS: TOPROL XL 50 MG PO (20:15)
--- NOTE | 2025-01-29 20:15 | PTCARENOTE ---
Assumed care on pt @ 1900, aaox3, daughter at bedside. Pt Afib on the monitor, with HR 100-140's w/ ambulation. O2 @ 2L via NC, O2 sat 91-94%. Denies chest discomfort or SOB. Tylenol PRN given for pain and T -100.7. + effect. Pt requesting 4 side
rails up r/t prior night fall,bed alarm in place, call marques within reach, advised to call for assistance.
[2025-01-29] MEDS: TESSALON PERLES 200 MG PO (22:14)
--- NOTE | 2025-01-29 23:30 | PTCARENOTE ---
Pt converted from Afib to SR on the monitor, HR 90's. O2 sat high 80's -91% on 2L, increased O2 at 3L/min, pox 94%.
[2025-01-30] VITALS (13 sets, daily range): BP systolic 98–141; BP diastolic 59–111; PULSE 95; O2SAT 90–92; BMI 26.9
[2025-01-30 05:21] LABS: Hemoglobin 14.5 g/dL (12.0-16.0); Mean Corp Hgb Conc. 34.5 g/dL (33.0-37.0); Mean Corpuscular Hgb 29.8 pg (27.0-31.0); Mean Corpuscular Volume 86.4 fL (81.0-99.0); Mean Platelet Volume 10.9 fL (7.4-10.4); Platelet Count 236 10^3/uL (130-400); Red Blood Cell Count 4.86 10^6/uL (4.20-5.40); Red Cell Dist. Width 14.5 % (11.5-14.5); White Blood Cell Count 23.7 10^3/uL (4.8-10.8)
[2025-01-30] MEDS: CARDIZEM CD 120 MG PO ×2 (05:21→19:24)
[2025-01-30] MEDS: SYNTHROID 88 MCG PO (05:22)
--- NOTE | 2025-01-30 05:25 | PTCARENOTE ---
Pt converting from Afib to NSR and back to Afib this morning. HR 110-140's from around 0300 to this time, pt c/o feeling tired. O2 kept on at 3L, Pox 92-94%. scallop cutter BRUNA Childers made aware, ok to give 0800 cardizem 120mg now. BP WNL.
[2025-01-30 05:43] LABS: Blood Urea Nitrogen 13 mg/dl (7-17); Calcium 8.2 mg/dl (8.4-10.2); Carbon Dioxide 23 mmol/L (22-30); Chloride 103 mmol/L (98-107); Estimated Creatinine Clearance 65 ml/min; Glucose 105 mg/dl (70-99); Magnesium 2.3 mg/dl (1.6-2.3); Phosphorus 2.1 mg/dl (2.5-4.5); Potassium 3.7 mmol/L (3.5-5.1); Sodium 141 mmol/L (135-145); eGFR > 60.00
[2025-01-30 05:50] LABS: Venous Blood Gas B.E. -0.8 mmol/L (-4 to +4); Venous Blood Gas HCO3 23.5 mmol/L (22-27); Venous Blood Gas O2 Sat % 94.3 %; Venous Blood Gas pCO2 37 mmHg (35-48); Venous Blood Gas pH 7.41 (7.32-7.43); Venous Blood Gas pO2 66 mmHg (30-50)
--- NOTE | 2025-01-30 07:56 | W.PN.HOSP.TC ---
Today's Communication/Plan
-
See plan
Assessment / Plan
Assessment / Plan
Physical Exam
General: Not in acute distress
HEENT: Normocephalic, Atraumatic
Respiratory: basal rales right side > left side, no wheezes.
Cardiac: S1/S2, no Tachycardia
GI: Soft and Non Tender. Positive bowel sounds.
Musculoskeletal: No Cyanosis
Skin: Warm and Dry
Neuro: Awake, Alert, Oriented and Nonfocal/grossly intact
Psych: Calm
Assessment/Plan
79 y/o female past medical history of hypertension, hypothyroidism and anxiety who presented with headache, fever, new onset A fib, dizziness and diarrhea.
#Legionnaires' disease
#Presented with Fever, diarrhea, leukocytosis, fever , she is meeting criteria of sepsis POA, on admission source was GI.
- Can explain fever, pneumonia, confusion, diarrhea
- Urine + for Legionella pneumophila => Azithromycin just added to Rocephin --> consider discontinuing ceftriaxone in the next 24 hours if patient continues to improve
- Pulmonary involved
#New-Onset Atrial Fibrillation with Rapid Ventricular Response. Patient was not taking Toprol XL for a few days prior to arrival
-Monitored in IVU
better HR, previously stopped IV Cardizem gtt, change to oral Cardizem CD 120 mg BID, c/w Metoprolol.
[id number] around 4 for age, sex, HTN, started on IV Heparin, now transitioned to Eliquis BID -- continue
Echo 01/27/25 showed LVEF 60-65%, Mild AI.
-Consulted Cardiology, help appreciated.
# Acute hypoxic respiratory failure
Hypoxia is resolving, weaning off nasal O2 --> still requiring [address]
CT Chest noted
Not a smoker.
Appreciate pulmonary help
#Suspected HFpEF
-Possible from IV fluids and also has had rapid A-Fib
-Continue IV Lasix
#Elevated Troponin, suspect non-ischemic myocardial injury in setting of rapid a-fib
-Continue to trend troponin
-Checked Echocardiogram, no regional wall motion abnormalities, no chest pain
Troponin trending down
# TME
Resolved
Had a fall this hospitalization, requested bed alarm. She seems back to baseline today, fully oriented.
# Small bilateral pleural effusion, with acute pulmonary edema ( non cardiogenic).
ok to c/w Lasix.
# Non-ischemic myocardial injury - acute in setting of new rapid Afib, peak troponin 0.308
# Hypokalemia
Replaced
# Hyperhidrosis
-Hold home Glycopyrrolate for now given anticholinergic effects which could have contributed to patient's symptoms
-Patient's daughter did mention that patient is sweating more, but patient does have chronic sweating more
#Hyponatremia, mildly likely hypovolemic ic in nature
Resolved with IVF
#Essential Hypertension
-Continue current medications.
#Hyperlipidemia
-Continue Zetia
#Post-Surgical Hypothyroidism
-Continue levothyroxine
#Abnormal CT findings, malignancy not ruled out
- Pulmonary plans repeat imaging in 4-6 weeks
#Anxiety
-Continue Zoloft
DVT proph: Heparin Drip
Code Status: Full Code
I spoke with patient's daughter inside patient's room today, and all questions and concerns were answered to satisfaction.
Anticipated Discharge: > 48 hours
Subjective/Interval History
-
Date of Service: January 30, 2025
Patient was seen and examined. No new significant symptoms.
Objective Data
-
Labs:
Laboratory Results
01/30/25
04:17
WBC 23.7 H
Hgb 14.5
Hct 42.0
Plt Count 236
Sodium 141
Potassium 3.7
Chloride 103
Carbon Dioxide 23
BUN 13
Creatinine 0.7
Glucose 105 H
Calcium 8.2 L
Vital Signs:
Vital Signs
Temp Pulse Resp BP Pulse Ox
100.1 F 124 20 136/79 91
01/30/25 07:13 01/30/25 05:21 01/30/25 07:13 01/30/25 05:21 01/30/25 07:13
I&O
01/29/25 01/30/25 01/31/25
06:59 06:59 06:59
Intake Total 1839 240 / 240
Output Total 252 / 252
Balance 1839 -
--- NOTE | 2025-01-30 09:17 | W.PN.CD ---
Today's Communication / Plan
-
Agree with ATB change to cover Legionnaires' disease
Continue IV Lasix as tolerated, but it may be that most respiratory symptoms are from her pneumonia
Continue rate control, suspect we will see more sinus as she responds to the new ATBs
Impression / Plan
-
Admitted for Diarrhea, significant, w/u and Rx per hospitalist
Legionnaires' disease
- Seems like a likely unifying dx for fever, pneumonia, confusion, diarrhea
- Urine + for Legionella pneumophila => Azithromycin just added to Rocephin
- Pulmonary involved
Abnormal CT findings, malignancy not ruled out
- Pulmonary plans repeat imaging in 4-6 weeks
Afib - new onset in the ER, RVR.
- Paroxysmal, was in sinus for several hours last night
- Rates are rapid when in AFib despite metoprolol ER 50 BID, dilt just increased to 120 BID
- On PO Eliquis
- [id number] at least 5 (age4, htn, suspected acute HF, gender)
Suspected HFpEF
- Precipitated by rapid AFib and IV Fluids
- Tolerating BID IV Lasix
Non-ischemic myocardial injury - acute in setting of new rapid Afib, peak troponin 0.308
HTN
HLD
Hypothyroidism
Anxiety
Subjective: Afib still fast, 130s, Daughter noted new labored breathing on 01/28/225 but pt never noticed. Still with diarrhea
Echo : Normal LV/RV. Mild AR. Stable from 04/01/22.
CT chest/abdomen 01/28/2025:
Bilateral lower lobe opacification with air bronchograms compatible with atelectasis and/or pneumonia with small bilateral pleural effusions. Right perihilar opacification extending into the right upper lobe which may represent pneumonitis with
accompanying small to moderate right hilar and small mediastinal lymph nodes. Unfortunately, malignancy centrally in the right hemithorax cannot be excluded. Recommend short-term follow-up Chest CT. Small pericardial effusion. 2.7 cm simple right
lobe hepatic cyst. Cholelithiasis. No findings to suggest biliary tract dilatation. No right lower quadrant inflammatory changes, intestinal obstruction or free air.
Physical Exam
Vital Signs/Labs
Vital Signs
Temp Pulse Resp BP Pulse Ox
100.1 F 124 20 136/79 91
01/30/25 07:13 01/30/25 05:21 01/30/25 07:13 01/30/25 05:21 01/30/25 07:13
01/29/25 01/30/25 01/31/25
06:59 06:59 06:59
Actual Weight 71.6 kg 71.1 kg
01/30/25 04:17
01/30/25 04:17
APTT 42.3 Sec (23.4-35.0) H 01/28/25 14:54
Magnesium 2.3 mg/dl (1.6-2.3) 01/30/25 04:17
Physical Exam
Constitutional: Other (appears tired and ill)
Cardiovascular: Rhythm/rate is irregular and S1S2 is normal
Respiratory: Respiratory effort normal, Wheeze Absent and Crackles Present
GI: Soft and Distention absent
Neuro/Psych: AO x 3
Data Reviewed
-
Date of Service: January 30, 2025
[2025-01-30] MEDS: ZITHROMAX INFUSION 250 IV (10:07)
[2025-01-30] MEDS: TESSALON PERLES 200 MG PO ×3 (10:08→21:15)
[2025-01-30] MEDS: ZOLOFT 50 MG PO (10:08)
[2025-01-30] MEDS: PEPCID 20 MG PO (10:09)
[2025-01-30] MEDS: TOPROL XL 50 MG PO ×2 (10:09→19:24)
[2025-01-30] MEDS: ELIQUIS 5 MG PO ×2 (10:09→19:25)
[2025-01-30] MEDS: KCL 40 MEQ PO ×2 (10:10→21:16)
[2025-01-30] MEDS: LASIX 20 MG IV ×2 (10:11→21:16)
--- NOTE | 2025-01-30 11:02 | CM ---
Addendum entered by Anaya Moses RN 01/30/25 15:29:
Pt evaluation recommending SNF. Patient and her daughter agree. Referrals sent to [facility], [facility] and [facility]. [facility] does not accept the insurance. Plan is for the patient to go to SNF when medically stable. CM to follow
Original Note:
Chart reviewed. Patient is independent of ADLS, lives alone in a 2 [address], 1st floor set up, 1 [facility], has recently been ambulating with a SPC. Patient recently had a fall. PT evaluation ordered. Plan is for the patient to return home with [facility] vs
SNF. CM to follow
--- NOTE | 2025-01-30 11:52 | W.PN.PUL3 ---
Today's Communication / Plan
-
Continue current antibiotics for now-consider discontinuing ceftriaxone in the next 24 hours if he continues to improve.
Wean down FiO2 as able-currently on 4 L
Antitussive
Eventual radiographic follow-up in the outpatient setting.
Will follow
Assessment
-
Assessment: 79-year-old female with a past medical history of GERD, anemia, iron deficiency, thyroid disease, hyperlipidemia, hypertension and anxiety who presents with head congestion, cough, diarrhea and reduced appetite for 2 days. She was
initially afebrile to 98.9 �F. Initial WBC 16.2, sodium 131, chloride 96, troponin 0.308, UA showed + ketones. Initial flu swab negative. Urine culture collected. Due to headache and balance issues, CT head obtained showing no acute intracranial
abnormality. She was also in new onset A-fib with RVR. She initially was admitted to the hospitalist service for rate control, given IVF, and stool studies were ordered. She had required supplemental oxygen initially at 2 L and then on 01/29 oxygen
requirements increased to 4 L/min. Due to her hypoxia, diarrhea and fevers, CT chest, abdomen/pelvis was done on 02/24/2025 showing bilateral pleural effusions, right perihilar opacity extending into the right upper lobe with right hilar and small
mediastinal lymphadenopathy � unable to rule out malignancy. Also a small pericardial effusion. Pulmonary service now consulted for additional recommendations.
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
Impression:
#Acute hypoxic respiratory failure due to acute decompensated heart failure in the setting of suspected right perihilar pneumonia; unable to rule out malignancy
Positive Legionella pneumonia urine antigen 01/30/2025
#New onset A-fib with RVR
#Pneumonia - right perihilar region and possibly lower lobes, although lower lobes is likely compressive atelectasis and not an infection
#Small pericardial effusion seen on CT chest 01/28/2025
#Cholelithiasis
#Elevated troponin � likely due to demand ischemia with type II IL
#Febrile illness
#Diarrhea
#Hypothyroidism
Plan:
- Clinical picture consistent with pneumonia.
Persistent leukocytosis, Fever curve improving.
Legionella urine antibody + 01/30/2025
Continue current antibiotics/ceftriaxone/azithromycin. Okay to discontinue ceftriaxone in the next 24 hours if he continues to improve and all other cultures negative. Will need 7 days of antibiotics.
-
- CT chest/abdomen/pelvis on 01/28/2025 showing a right perihilar consolidative opacity and additional opacities in the right middle lobe + lingula, and bilateral pleural effusions with adjacent bibasilar consolidative opacities --> she will need a
repeat CT Chest in 4-6 weeks to assure that her right perihilar consolidation improves.
- No recent prior imaging to compare.
Continue symptomatic management:
- Start Tessalon Perles + prn codeine cough syrup due to bothersome coughing spells; no need for mucolytics at this time as her cough is dry and she has no chest congestion
- Continue with IV diuretics to maintain net negative fluid balance as tolerated
- Heart rate control with goal HR <110; continue metoprolol + Cardizem
- Replete electrolytes with K>4, Mg>2
- Cardiology on board and recommendations appreciated
- Continue to monitor diarrhea; C. difficile testing was negativ; Campylobacter + Salmonella/Shigella cultures both negative
Hypoxemic respiratory failure on 4 L supplemental oxygen.
-Continue to wean off as able. Eventual home oxygen assessment prior to discharge.
- prn nebulized bronchodilators - not currently bronchospastic
- Incentive spirometer encouraged q1hr while awake
- DVT ppx: Eliquis due to A-fib
Pulmonary service will continue to follow along. Outpatient pulmonary follow-up will also be arranged for full PFTs and symptom management/monitoring.
Data:
CT Chest/Abd/Pelvis 01/28/2025:
Bilateral lower lobe opacification with air bronchograms compatible with atelectasis and/or pneumonia with small bilateral pleural effusions.
Right perihilar opacification extending into the right upper lobe which may represent pneumonitis with accompanying small to moderate right hilar and small mediastinal lymph nodes. Unfortunately, malignancy centrally in the right hemithorax cannot
be excluded. Recommend short-term follow-up Chest CT.
Small pericardial effusion.
2.7 cm simple right lobe hepatic cyst.
Cholelithiasis. No findings to suggest biliary tract dilatation.
No right lower quadrant inflammatory changes, intestinal obstruction or free air.
Subjective Data
-
Date of Service:
Date of Service: January 30, 2025
Chief Complaint: Pulmonary Follow Up (Pneumonia)
Review of Systems
Cardiopulmonary: Dyspnea (none at rest)
GI: Abdominal Pain (n) and Diarrhea
Neuro: Headache (n) and Dizziness (n)
Objective Data
Data Reviewed
Vital Signs / I&O / Oxygen:
Vital Signs
Temp Pulse Resp BP Pulse Ox
99.3 F 95 22 118/73 92
01/30/25 10:58 01/30/25 10:00 01/30/25 10:58 01/30/25 07:12 01/30/25 10:58
Intake and Output
01/29/25 01/30/25 01/31/25
06:59 06:59 06:59
Intake Total 0 / 1840 240 / 240 480 / 480
Output Total 252 / 252 300 / 300
Balance 1840 / 1840 -12 / -12 180 / 180
SaO2 92
Nasal Cannula flow liters per 4
minute
Physical Exam
General: Respiratory Distress (n) and Comfortable
HEENT: Normocephalic
Cardiovascular: S1-S2
Respiratory: Crackles and Non-Labored Respirations
GI: Soft and Non Distended
Neurology: Awake and Oriented
Skin: Warm
Labs/Micro/Reports
Lab Data
01/30/25 04:17
01/30/25 04:17
Microbiology
01/28/25 11:13 Blood/Venous Blood Culture - Preliminary
No Growth in 48 hours- Final report to follow
01/27/25 00:45 Feces/Stool Salmonella/Shigella Culture - Final
No Salmonella, Shigella, Aeromonas or Plesiomonas species
isolated.
01/27/25 00:45 Feces/Stool Campylobacter Culture - Final
No Campylobacter species isolated.
01/27/25 00:45 Feces/Stool Shiga Toxin Test - Final
No E. coli Shiga Toxin 1 or 2 detected.
01/30/25 01:28 Urine Legionella Urinary Antigen - Final
Positive for L. pneumophila Ag
01/30/25 01:28 Urine Streptococcus pneumoniae Antigen (M - Final
Negative for Streptococcus pneumoniae antigen.
A negative result does not exclude infection with
Streptococcus pneumoniae. Clinical correlation is
recommended.
01/26/25 17:09 Urine Urine Culture - Final
01/27/25 00:45 Feces/Stool C. difficile GDH Antigen & Toxins - Final
Negative for toxigenic C.difficile
01/27/25 00:45 Feces/Stool - Final
Negative for Norovirus GI and GII.
[2025-01-30] MEDS: ROCEPHIN 1000 MG IV (14:23)
[2025-01-30] MEDS: ZETIA 10 MG PO (14:24)
[2025-01-30] MEDS: STERILE WATER FOR INJECTION 10 ML IV (14:24)
--- NOTE | 2025-01-30 16:16 | PTCARENOTE ---
pt oob to chair for most of the day. pt is sr on the monitor, hr in the 90s, vss. pt 4LO2 NC. pt c/o of back pain, notified chritsopher romero. Lido patch applied per order. pt educated on plan of care and pt verbalized understanding. bed alarm in
place and pt daughter at bedside. call marques within reach.
[2025-01-30] MEDS: LIDOCAINE 4% PATCH 1 PATCH TOPICAL (16:28)
[2025-01-30] MEDS: PHENERGAN WITH CODEINE SYRUP 5 ML PO (19:25)
[2025-01-30] MEDS: TYLENOL 1000 MG PO (21:17)
--- NOTE | 2025-01-30 22:55 | PTCARENOTE ---
Assumed care on pt at 1900, c/o frequent process improvement consultant cough. Tussin w/ codeine given with some + effect, O2 sat remains low 90's , 92-93% on 4L O2. Afib on the monitor, HR 100's and 160-170's w/ ambulation, BP stable. T- 101.4. Ice packs applied b/l axillae
and PRN tylenol given. Temp down to 98.5 when rechecked. Pt resting with no complaints at this time. Call marques within reach.
[2025-01-31] VITALS (7 sets, daily range): BP systolic 103–152; BP diastolic 65–85; BMI 26.7
[2025-01-31] MEDS: PHENERGAN WITH CODEINE SYRUP 5 ML PO ×2 (03:49→20:34)
[2025-01-31 04:08] LABS: Hematocrit 34.8 % (37.0-47.0); Hemoglobin 12.1 g/dL (12.0-16.0); Mean Corp Hgb Conc. 34.8 g/dL (33.0-37.0); Mean Corpuscular Volume 86.4 fL (81.0-99.0); Mean Platelet Volume 10.6 fL (7.4-10.4); Platelet Count 213 10^3/uL (130-400); Red Blood Cell Count 4.03 10^6/uL (4.20-5.40); Red Cell Dist. Width 14.7 % (11.5-14.5); White Blood Cell Count 16.7 10^3/uL (4.8-10.8)
[2025-01-31 04:32] LABS: Blood Urea Nitrogen 16 mg/dl (7-17); Calcium 7.9 mg/dl (8.4-10.2); Carbon Dioxide 27 mmol/L (22-30); Chloride 106 mmol/L (98-107); Estimated Creatinine Clearance 58 ml/min; Glucose 117 mg/dl (70-99); Magnesium 2.3 mg/dl (1.6-2.3); Potassium 3.4 mmol/L (3.5-5.1); Sodium 140 mmol/L (135-145); eGFR > 60.00
[2025-01-31 05:05] LABS: Absolute Neutrophils -Man Diff 14.5 10^3/uL (1.4-6.5); Band Neutrophils 2 % (0-3); Eosinophils 2 % (0-6); Lymphocytes 4 % (20-51); Monocytes 7 % (2-9); Segmented Neutrophils 85 % (42-75)
[2025-01-31 05:06] LABS: Platelets Checked Yes
[2025-01-31 05:07] LABS: Normal RBC Morphology Yes; Total Cells Counted 100
[2025-01-31] MEDS: SYNTHROID 88 MCG PO (05:19)
--- NOTE | 2025-01-31 07:35 | PTCARENOTE ---
Pt remained afebrile during night, Afib on the monitor, HR 90-100's. No c/o pain, O2 sat 91-92% @ L via NC.
[2025-01-31] MEDS: PEPCID 20 MG PO (07:57)
[2025-01-31] MEDS: KCL 40 MEQ PO (07:57)
[2025-01-31] MEDS: ELIQUIS 5 MG PO ×2 (07:57→20:00)
[2025-01-31] MEDS: TESSALON PERLES 200 MG PO ×3 (07:57→21:34)
[2025-01-31] MEDS: TOPROL XL 50 MG PO ×2 (07:58→20:34)
[2025-01-31] MEDS: ZOLOFT 50 MG PO (07:58)
[2025-01-31] MEDS: LIDOCAINE 4% PATCH 1 PATCH TOPICAL (07:58)
[2025-01-31] MEDS: CARDIZEM CD 120 MG PO ×2 (08:19→19:59)
[2025-01-31] MEDS: LASIX 20 MG IV ×2 (08:20→20:04)
[2025-01-31] MEDS: ZITHROMAX INFUSION 250 IV (09:08)
--- NOTE | 2025-01-31 10:39 | W.PN.PUL3 ---
Today's Communication / Plan
-
Continue antibiotics
monitor fevers
Consider discontinuation of ceftriaxone
Continue diuretics
Secretion clearance interventions continue
Wean down FiO2 as able.
Radiographic follow-up will be needed in the future
Will follow
Assessment
-
Assessment: 79-year-old female with a past medical history of GERD, anemia, iron deficiency, thyroid disease, hyperlipidemia, hypertension and anxiety who presents with head congestion, cough, diarrhea and reduced appetite for 2 days. She was
initially afebrile to 98.9 �F. Initial WBC 16.2, sodium 131, chloride 96, troponin 0.308, UA showed + ketones. Initial flu swab negative. Urine culture collected. Due to headache and balance issues, CT head obtained showing no acute intracranial
abnormality. She was also in new onset A-fib with RVR. She initially was admitted to the hospitalist service for rate control, given IVF, and stool studies were ordered. She had required supplemental oxygen initially at 2 L and then on 01/29 oxygen
requirements increased to 4 L/min. Due to her hypoxia, diarrhea and fevers, CT chest, abdomen/pelvis was done on 02/24/2025 showing bilateral pleural effusions, right perihilar opacity extending into the right upper lobe with right hilar and small
mediastinal lymphadenopathy � unable to rule out malignancy. Also a small pericardial effusion. Pulmonary service now consulted for additional recommendations.
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
Impression:
#Acute hypoxic respiratory failure due to acute decompensated heart failure in the setting of suspected right perihilar pneumonia; unable to rule out malignancy
Positive Legionella pneumonia urine antigen 01/30/2025
#New onset A-fib with RVR
#Pneumonia - right perihilar region and possibly lower lobes, although lower lobes is likely compressive atelectasis and not an infection
#Small pericardial effusion seen on CT chest 01/28/2025
#Cholelithiasis
#Elevated troponin � likely due to demand ischemia with type II SD
#Febrile illness
#Diarrhea
#Hypothyroidism
Plan:
Clinical picture consistent with pneumonia.
Leukocytosis improving
Fever last night noted.
Legionella urine antibody + 01/30/2025
Normal LFT and renal function.
Pt report exposure to mice dropping at home few days prior getting sick.
-
Continue current antibiotics/ceftriaxone/azithromycin. Okay to discontinue ceftriaxone as if there is ongoing clinical improvement as other cultures negative.
If clinically stable tomorrow consider transition to PO abx.
Will need 7 days of antibiotics.
-
- CT chest/abdomen/pelvis on 01/28/2025 showing a right perihilar consolidative opacity and additional opacities in the right middle lobe + lingula, and bilateral pleural effusions with adjacent bibasilar consolidative opacities --> she will need a
repeat CT Chest in 4-6 weeks to assure that her right perihilar consolidation improves.
- No recent prior imaging to compare.
Continue symptomatic management:
- Continue Tessalon Perles + prn codeine cough syrup due to bothersome coughing spells.
- Continue with IV diuretics to maintain net negative fluid balance as tolerated
Normal renal function.
- Heart rate control with goal HR <110; continue metoprolol + Cardizem
- Replete electrolytes with K>4, Mg>2
- Cardiology on board and recommendations appreciated
- Continue to monitor diarrhea-now resolved; C. difficile testing was negativ; Campylobacter + Salmonella/Shigella cultures both negative
Benign abdominal exam.
Hypoxemic respiratory failure on 4 L supplemental oxygen.
-Continue to wean off as able. Eventual home oxygen assessment prior to discharge.
- prn nebulized bronchodilators - not currently bronchospastic
- Incentive spirometer encouraged q1hr while awake
- DVT ppx: Eliquis due to A-fib
Pulmonary service will continue to follow along. Outpatient pulmonary follow-up will also be arranged for full PFTs and symptom management/monitoring.
Data:
CT Chest/Abd/Pelvis 01/28/2025:
Bilateral lower lobe opacification with air bronchograms compatible with atelectasis and/or pneumonia with small bilateral pleural effusions.
Right perihilar opacification extending into the right upper lobe which may represent pneumonitis with accompanying small to moderate right hilar and small mediastinal lymph nodes. Unfortunately, malignancy centrally in the right hemithorax cannot
be excluded. Recommend short-term follow-up Chest CT.
Small pericardial effusion.
2.7 cm simple right lobe hepatic cyst.
Cholelithiasis. No findings to suggest biliary tract dilatation.
No right lower quadrant inflammatory changes, intestinal obstruction or free air.
Subjective Data
-
Date of Service:
Date of Service: January 31, 2025
Chief Complaint: Pulmonary Follow Up (Pneumonia)
Subjective:
Patient denies any significant new complaints.
Denies hemoptysis.
Denies chest pain
Shortness of breath slowly improving
Review of Systems
Cardiopulmonary: Dyspnea (improving), Dyspnea on Exertion, Cough and Sputum Production (n)
GI: Abdominal Pain (n) and Nausea (n)
Objective Data
Data Reviewed
Vital Signs / I&O / Oxygen:
Vital Signs
Temp Pulse Resp BP Pulse Ox
98.4 F 131 18 103/71 92
01/31/25 07:31 01/31/25 09:00 01/31/25 07:31 01/31/25 07:30 01/31/25 08:00
Intake and Output
01/30/25 01/31/25 02/01/25
06:59 06:59 06:59
Intake Total 240 / 240 480 / 480
Output Total 252 / 252 650 / 650
Balance -12 / -12 -170 / -170
SaO2 92
Nasal Cannula flow liters per 4
minute
Physical Exam
General: Respiratory Distress (n) and Comfortable
HEENT: Normocephalic
Cardiovascular: S1-S2
Respiratory: Crackles and Non-Labored Respirations
GI: Soft and Non Distended
Neurology: Awake and Oriented
Skin: Warm
Labs/Micro/Reports
Lab Data
01/31/25 03:48
01/31/25 03:48
Microbiology
01/30/25 01:28 Nose MRSA Screen - Final
No Methicillin Resistant Staphylococcus aureus isolated.
01/28/25 11:13 Blood/Venous Blood Culture - Preliminary
No Growth in 48 hours- Final report to follow
01/27/25 00:45 Feces/Stool Salmonella/Shigella Culture - Final
No Salmonella, Shigella, Aeromonas or Plesiomonas species
isolated.
01/27/25 00:45 Feces/Stool Campylobacter Culture - Final
No Campylobacter species isolated.
01/27/25 00:45 Feces/Stool Shiga Toxin Test - Final
No E. coli Shiga Toxin 1 or 2 detected.
01/30/25 01:28 Urine Legionella Urinary Antigen - Final
Positive for L. pneumophila Ag
01/30/25 01:28 Urine Streptococcus pneumoniae Antigen (M - Final
Negative for Streptococcus pneumoniae antigen.
A negative result does not exclude infection with
Streptococcus pneumoniae. Clinical correlation is
recommended.
--- NOTE | 2025-01-31 10:44 | CM ---
Chart reviewed. Patient is independent of ADLS, lives alone in a [address], 1st floor set up, 1 [place], has recently been ambulating with a SPC. PT evaluation recommending SNF. Patient is interested in [facility] or [facility]. Plan is for the
patient to go to SNF when medically stable. CM to follow
--- NOTE | 2025-01-31 11:25 | W.PN.CD ---
Today's Communication / Plan
-
Continue IV Lasix BID for now, KCl, Eliquis, metoprolol and diltiazem
Hope to see more sinus as she improves
Impression / Plan
-
Diarrhea, per hospitalist
Legionnaires' disease perhaps a unifying diagnosis
Pneumonia, on ATBs per hospitalist and pulmonary
- Ceftriaxone and the Azithromycin started on 01/30/[address] findings, malignancy not ruled out
- Pulmonary plans repeat imaging in 4-6 weeks
Afib - new onset in the ER, RVR.
- Paroxysmal, had multiple hours of sinus on 01/30/2025
- Rates can berapid when in AFib but overall a bit slower now (metoprolol ER 50 BID, dilt just increased to 120 BID
- On PO Eliquis
- [id number] at least 5 (age4, htn, suspected acute HF, gender)
Suspected HFpEF
- Precipitated by rapid AFib and IV Fluids
- Tolerating BID IV Lasix
Non-ischemic myocardial injury - acute in setting of new rapid Afib, peak troponin 0.308
HTN
HLD
Hypothyroidism
Anxiety
Subjective: Feels a bit better
Echo : Normal LV/RV. Mild AR. Stable from 04/01/22.
CT chest/abdomen 01/28/2025:
Bilateral lower lobe opacification with air bronchograms compatible with atelectasis and/or pneumonia with small bilateral pleural effusions. Right perihilar opacification extending into the right upper lobe which may represent pneumonitis with
accompanying small to moderate right hilar and small mediastinal lymph nodes. Unfortunately, malignancy centrally in the right hemithorax cannot be excluded. Recommend short-term follow-up Chest CT. Small pericardial effusion. 2.7 cm simple right
lobe hepatic cyst. Cholelithiasis. No findings to suggest biliary tract dilatation. No right lower quadrant inflammatory changes, intestinal obstruction or free air.
Physical Exam
Vital Signs/Labs
Vital Signs
Temp Pulse Resp BP Pulse Ox
98.4 F 131 18 103/71 92
01/31/25 07:31 01/31/25 09:00 01/31/25 07:31 01/31/25 07:30 01/31/25 08:00
01/30/25 01/31/25 02/01/25
06:59 06:59 06:59
Actual Weight 71.1 kg 70.6 kg
01/31/25 03:48
01/31/25 03:48
APTT 42.3 Sec (23.4-35.0) H 01/28/25 14:54
Magnesium 2.3 mg/dl (1.6-2.3) 01/31/25 03:48
Physical Exam
Constitutional: No acute distress
EENT: Anicteric
Cardiovascular: Rhythm/rate is irregular and S1S2 is normal
Respiratory: Respiratory effort normal and Crackles Present
GI: Soft and Distention absent
Data Reviewed
-
Date of Service: January 31, 2025
01/30/25 01:28
Positive for L. pneumophila Ag
Negative for Streptococcus pneumoniae antigen.
A negative result does not exclude infection with
Streptococcus pneumoniae. Clinical correlation is
recommended.
[2025-01-31] MEDS: STERILE WATER FOR INJECTION 10 ML IV (11:30)
[2025-01-31] MEDS: ROCEPHIN 1000 MG IV (11:30)
[2025-01-31] MEDS: ZETIA 10 MG PO (11:41)
--- NOTE | 2025-01-31 14:20 | PN.CDI ---
CDI
- -
CDI:
Physician Documentation Request
Admit Date: 01/26/25 20:56
Dear Doctor Tal,
Please review the following and provide your response in the progress notes.
Clinical Indicators:
- 01/30 PN 'Suspected HFpEF'
- 01/28-/6 20mg IV furosemide given x 7
- No documented pmh heart failure
Please clarify which of the following accurately represents the acuity of the HFpEF
____Acute HFpEF
____Acute on Chronic HFpEF
____Other (please specify)
Use of terms such as suspected, likely, concern for, or probable (associated with a specific diagnosis that is being evaluated, monitored, or treated as if it exists) are acceptable and can be coded in the inpatient setting, when documented at the
time of discharge.
Thank you,
Kenneth Johnston RN
CDI Specialist
Please use your independent medical judgment in providing your response.
--- NOTE | 2025-01-31 15:32 | W.PN.HOSP.TC ---
Today's Communication/Plan
-
Continue Azithromycin
See plan
Assessment / Plan
Assessment / Plan
Physical Exam
General: Not in acute distress
HEENT: Normocephalic, Atraumatic
Respiratory: basal rales right side > left side, no wheezes.
Cardiac: S1/S2, no Tachycardia
GI: Soft and Non Tender. Positive bowel sounds.
Musculoskeletal: No Cyanosis
Skin: Warm and Dry
Neuro: Awake, Alert, Oriented and Nonfocal/grossly intact
Psych: Calm
Assessment/Plan
79 y/o female with past medical history of hypertension, hypothyroidism and anxiety who presented with headache, fever, new onset atrial fibrillation, dizziness and diarrhea.
#Legionnaires' disease
#Presented with Fever, diarrhea, leukocytosis, fever , she is meeting criteria of sepsis POA, on admission source was GI
#Fever -- last fever temperature was 101.7 F on 01/30/25 evening
- Can explain fever, pneumonia, confusion, diarrhea
- Urine + for Legionella pneumophila => Azithromycin added on January 31, 2025 to Rocephin --> consider discontinuing ceftriaxone in the next 24 hours if patient continues to improve
- Pulmonary involved
#New-Onset Atrial Fibrillation with Rapid Ventricular Response. Patient was not taking Toprol XL for a few days prior to arrival
-Monitored in IVU
better HR, previously stopped IV Cardizem gtt, change to oral Cardizem CD 120 mg BID, c/w Metoprolol.
[id number] around 4 for age, sex, HTN, started on IV Heparin, now transitioned to Eliquis BID -- continue
Echo 01/27/25 showed LVEF 60-65%, Mild AI.
-Consulted Cardiology, help appreciated.
# Acute hypoxic respiratory failure
Hypoxia is resolving, weaning off nasal O2 --> still requiring [address] Chest noted
Not a smoker.
Appreciate pulmonary help
#Suspected Acute on Chronic HFpEF
-Possible from IV fluids and also has had rapid A-Fib
-Continue IV Lasix
#Hypokalemia
-Monitor and replace potassium
#Elevated Troponin, suspect non-ischemic myocardial injury in setting of rapid a-fib
-Continue to trend troponin
-Checked Echocardiogram, no regional wall motion abnormalities, no chest pain
Troponin trending down
# TME
Resolved
Had a fall this hospitalization, requested bed alarm. She seems back to baseline today, fully oriented.
# Small bilateral pleural effusion, with acute pulmonary edema ( non cardiogenic).
ok to c/w Lasix.
# Non-ischemic myocardial injury - acute in setting of new rapid Afib, peak troponin 0.308
# Hypokalemia
Replaced
# Hyperhidrosis
-Hold home Glycopyrrolate for now given anticholinergic effects which could have contributed to patient's symptoms
-Patient's daughter did mention that patient is sweating more, but patient does have chronic sweating more
#Hyponatremia, mildly likely hypovolemic in nature
Resolved with IVF
#Essential Hypertension
-Continue current medications.
#Hyperlipidemia
-Continue Zetia
#Post-Surgical Hypothyroidism
-Continue levothyroxine
#Abnormal CT findings, malignancy not ruled out
- Pulmonary plans repeat imaging in 4-6 weeks
#Anxiety
-Continue Zoloft
DVT Prophylaxis: Eliquis
Code Status: Full Code
Anticipated Discharge: > 48 hours
Subjective/Interval History
-
Date of Service: January 31, 2025
Patient was seen and examined. She reported doing okay, denied any new chest pain, SOB or any other complaints.
Objective Data
-
Labs:
Laboratory Results
01/31/25
03:48
WBC 16.7 H
Hgb 12.1
Hct 34.8 L
Plt Count 213
Sodium 140
Potassium 3.4 L
Chloride 106
Carbon Dioxide 27
BUN 16
Creatinine 0.7
Glucose 117 H
Calcium 7.9 L
Vital Signs:
Vital Signs
Temp Pulse Resp BP Pulse Ox
98.8 F 131 18 103/71 92
01/31/25 12:22 01/31/25 09:00 01/31/25 12:22 01/31/25 07:30 01/31/25 12:22
I&O
01/30/25 01/31/25 02/01/25
06:59 06:59 06:59
Intake Total 240 / 240 480 / 480
Output Total 252 / 252 650 / 650
Balance -12 / -12 -170 / -170
[2025-01-31] MEDS: KCL ELIXIR 20 MEQ PO (15:43)
--- NOTE | 2025-01-31 18:00 | PTCARENOTE ---
Pt received this am on 4LNC. Sat 90 - 92%. Denies any sob at rest. Ambulated with 1 assist and the walker to the BR. Pt tolerated oob in the chair all day. Pt remains afebrile. Afib, rate in the 80's to 150's at times.
[2025-01-31] MEDS: KCL ELIXIR 40 MEQ PO (20:34)
[2025-01-31] MEDS: KCL PO (20:39)
--- NOTE | 2025-01-31 20:40 | PTCARENOTE ---
Received pt @ change of shift. AAOx3. VSS-- NSR on monitor. Before an EKG could be done, pt switched back to A-fib, and then back to NSR again. EKG obtained. Discussed plan of care for evening. Pt verbalizes understanding. Bed alarm in place. Pt
agrees to call when needing to get OOB. Call marques within reach.
[2025-02-01 02:52] VITALS: BP 115/67
[2025-02-01 03:24] LABS: Hemoglobin 13.2 g/dL (12.0-16.0); Mean Corp Hgb Conc. 33.8 g/dL (33.0-37.0); Mean Corpuscular Hgb 29.4 pg (27.0-31.0); Mean Corpuscular Volume 86.9 fL (81.0-99.0); Mean Platelet Volume 10.8 fL (7.4-10.4); Platelet Count 228 10^3/uL (130-400); Red Blood Cell Count 4.49 10^6/uL (4.20-5.40); White Blood Cell Count 13.7 10^3/uL (4.8-10.8)
[2025-02-01 03:48] LABS: Blood Urea Nitrogen 19 mg/dl (7-17); Calcium 8.2 mg/dl (8.4-10.2); Carbon Dioxide 27 mmol/L (22-30); Chloride 100 mmol/L (98-107); Estimated Creatinine Clearance 51 ml/min; Glucose 114 mg/dl (70-99); Potassium 4.7 mmol/L (3.5-5.1); Sodium 135 mmol/L (135-145); eGFR > 60.00
[2025-02-01] MEDS: PHENERGAN WITH CODEINE SYRUP 5 ML PO ×2 (04:31→22:58)
[2025-02-01] MEDS: SYNTHROID 88 MCG PO (04:32)
[2025-02-01 05:21] LABS: % Neutrophils 81.4 % (42.2-75.2)
[2025-02-01 05:22] LABS: % Basophils 0.7 % (0-2); % Eosinophils 1.6 % (0-6); % Immature Granulocytes 8.5 % (0-0.5); % Lymphocytes 5.2 % (20.5-51.1); % Monocytes 2.6 % (1.7-9.3); Absolute Basophils 0.1 10^3/uL (0-0.2); Absolute Eosinophils 0.2 10^3/uL (0-0.7); Absolute Immature Granulocytes 1.2 10^3/uL (0-0.05); Absolute Lymphocytes 0.7 10^3/uL (1.2-3.4); Absolute Monocytes 0.4 10^3/uL (0.1-0.6); Absolute Neutrophils 11.2 10^3/uL (1.4-6.5); Nucleated Red Blood Cells % 0 %
[2025-02-01 06:00] VITALS: BMI 26.5
--- NOTE | 2025-02-01 07:36 | PTCARENOTE ---
Pt remained in NSR for the remainder of the night. Became tachycardic and tachypneic with ambulation, but was able to regulate breathing after a few minutes of returning to bed. Discussed the importance of breathing in through her nose with the
oxygen on when she was feeling SOB. Pt verbalized understanding.
[2025-02-01 08:03] VITALS: BP 120/68
[2025-02-01] MEDS: ZITHROMAX INFUSION 250 IV (08:24)
[2025-02-01] MEDS: LASIX 20 MG IV (08:26)
[2025-02-01] MEDS: ZOLOFT 50 MG PO (08:26)
[2025-02-01] MEDS: TOPROL XL 50 MG PO (08:26)
[2025-02-01] MEDS: CARDIZEM CD 120 MG PO (08:26)
[2025-02-01] MEDS: ELIQUIS 5 MG PO ×2 (08:26→19:49)
[2025-02-01] MEDS: LIDOCAINE 4% PATCH 1 PATCH TOPICAL (08:27)
[2025-02-01] MEDS: KCL ELIXIR 40 MEQ PO (08:33)
[2025-02-01] MEDS: PEPCID 20 MG PO (08:33)
[2025-02-01] MEDS: TESSALON PERLES 200 MG PO ×3 (08:33→22:20)
--- NOTE | 2025-02-01 10:17 | W.PN.CD ---
Today's Communication / Plan
-
As she is having less AFib
- Stop Metoprolol
- Decrease Dilt from 120 BID to daily
- Continue Eliquis
- Perhaps in 1-2 months check a 14 d monitor as she did not feel the AFib
As her HF was AFib and volume mediated
- Stop IV Lasix BID
- Go to Lasix 40 PO one time a day
- Decrease KCl
- Suspect no Lasix/KCl at discharge
Impression / Plan
-
Legionnaires' disease perhaps a unifying diagnosis
- Pneumonia, on ATBs per hospitalist and pulmonary
- Ceftriaxone and then Azithromycin started on 01/30/2025
- Diarrhea, per hospitalist
- Still on O2 [address] findings, malignancy not ruled out
- Pulmonary plans repeat imaging in 4-6 weeks
Afib - new onset in the ER, RVR.
- Paroxysmal, had multiple hours of sinus on 01/30/2025 => more sinus 01/31 and 02/01
- Rates can be rapid when in AFib has been on metoprolol ER 50 BID and dilt 120 BID => will stop metoprolol and decrease dilt
- On PO Eliquis
- [id number] at least 5 (age4, htN, suspected acute HF, gender)
Suspected HFpEF
- Precipitated by rapid AFib and IV Fluids
- Decrease Lasix from IV BID to PO one time daily
- Suspect no Lasix/KCl at discharge
Non-ischemic myocardial injury - acute in setting of new rapid Afib, peak troponin 0.308
HTN
HLD
Hypothyroidism
Anxiety
Subjective: Feels a bit better. Fatigue
Echo : Normal LV/RV. Mild AR. Stable from 04/01/22.
CT chest/abdomen 01/28/2025:
Bilateral lower lobe opacification with air bronchograms compatible with atelectasis and/or pneumonia with small bilateral pleural effusions. Right perihilar opacification extending into the right upper lobe which may represent pneumonitis with
accompanying small to moderate right hilar and small mediastinal lymph nodes. Unfortunately, malignancy centrally in the right hemithorax cannot be excluded. Recommend short-term follow-up Chest CT. Small pericardial effusion. 2.7 cm simple right
lobe hepatic cyst. Cholelithiasis. No findings to suggest biliary tract dilatation. No right lower quadrant inflammatory changes, intestinal obstruction or free air.
Physical Exam
Vital Signs/Labs
Vital Signs
Temp Pulse Resp BP Pulse Ox
100.2 F 97 16 120/68 92
02/01/25 08:09 02/01/25 09:00 02/01/25 08:09 02/01/25 08:26 02/01/25 09:09
01/31/25 02/01/25 02/02/25
06:59 06:59 06:59
Actual Weight 70.6 kg 70 kg
02/01/25 02:54
02/01/25 02:54
APTT 42.3 Sec (23.4-35.0) H 01/28/25 14:54
Magnesium 2.3 mg/dl (1.6-2.3) 01/31/25 03:48
Physical Exam
Constitutional: No acute distress
Cardiovascular: Rhythm & rate is regular and Pedal edema is absent
Respiratory: Respiratory effort normal, Crackles Absent and Rhonchi Present
GI: Soft and Distention absent
Neuro/Psych: AO x 3
Data Reviewed
-
Date of Service: February 01, 2025
--- NOTE | 2025-02-01 10:36 | CM ---
Chart reviewed. Patient is independent of ADLS, lives alone in a [address], 1st floor set up, 1 [address], recently has been using a SPC. PT evaluation recommending SNF. Referrals sent to [facility]. Plan is for the patient to go to SNF
when medically stable. CM to follow
--- NOTE | 2025-02-01 11:10 | W.PN.PUL3 ---
Today's Communication / Plan
-
consider discontinuation of ceftriaxone.
Continue azithromycin IV today and transition to oral tomorrow if continues to improve clinically.
Home oxygen assessment today- order placed.
Diuresis has been transitioned to oral
Increase mobility as able
Will follow
Patient will need radiographic follow-up upon discharge-hopefully in the next 24 to 48 hours depending on clinical situation
Assessment
-
Assessment: 79-year-old female with a past medical history of GERD, anemia, iron deficiency, thyroid disease, hyperlipidemia, hypertension and anxiety who presents with head congestion, cough, diarrhea and reduced appetite for 2 days. She was
initially afebrile to 98.9 �F. Initial WBC 16.2, sodium 131, chloride 96, troponin 0.308, UA showed + ketones. Initial flu swab negative. Urine culture collected. Due to headache and balance issues, CT head obtained showing no acute intracranial
abnormality. She was also in new onset A-fib with RVR. She initially was admitted to the hospitalist service for rate control, given IVF, and stool studies were ordered. She had required supplemental oxygen initially at 2 L and then on 01/29 oxygen
requirements increased to 4 L/min. Due to her hypoxia, diarrhea and fevers, CT chest, abdomen/pelvis was done on 02/24/2025 showing bilateral pleural effusions, right perihilar opacity extending into the right upper lobe with right hilar and small
mediastinal lymphadenopathy � unable to rule out malignancy. Also a small pericardial effusion. Pulmonary service now consulted for additional recommendations.
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
Impression:
#Acute hypoxic respiratory failure due to acute decompensated heart failure in the setting of suspected right perihilar pneumonia; unable to rule out malignancy
Positive Legionella pneumonia urine antigen 01/30/2025
#New onset A-fib with RVR
#Pneumonia - right perihilar region and possibly lower lobes, although lower lobes is likely compressive atelectasis and not an infection
#Small pericardial effusion seen on CT chest 01/28/2025
#Cholelithiasis
#Elevated troponin � likely due to demand ischemia with type II CT
#Febrile illness
#Diarrhea
#Hypothyroidism
Plan:
Clinical picture consistent with pneumonia.
Leukocytosis improving
Fever curve trending [id number] fever overnight.
Legionella urine antibody + 01/30/2025
Normal LFT and renal function.
Pt report exposure to mice dropping at home few days prior getting sick.
-
Day #5 of ceftriaxone
Day #3 of azithromycin
Consider discontinuation of ceftriaxone.
Complete 10 to 14 days of azithromycin.
Would continue with 1 more dose of IV today and transition to oral azithromycin tomorrow
-
- CT chest/abdomen/pelvis on 01/28/2025 showing a right perihilar consolidative opacity and additional opacities in the right middle lobe + lingula, and bilateral pleural effusions with adjacent bibasilar consolidative opacities --> she will need a
repeat CT Chest in 4-6 weeks to assure that her right perihilar consolidation improves.
- No recent prior imaging to compare.
Continue symptomatic management:
- Continue Tessalon Perles + prn codeine cough syrup due to bothersome coughing spells.
- Status post diuresis. Lasix has been transitioned to oral per cardiology.
Heart rate has improved.
Cardiology stop metoprolol.
Cardizem has been decreased.
Continue Eliquis.
- Continue to monitor diarrhea-now mosly resolved; C. difficile testing was negativ; Campylobacter + Salmonella/Shigella cultures both negative
Benign abdominal exam.
Hypoxemic respiratory failure on 4 L supplemental oxygen.
Home oxygen assessment today
- prn nebulized bronchodilators - not currently bronchospastic
- Incentive spirometer encouraged q1hr while awake
Physical therapy and Occupational Therapy as tolerated.
- DVT ppx: Eliquis due to A-fib
Dr. Berry has updated daugher at bedside on daily basis.
Pulmonary service will continue to follow along. Outpatient pulmonary follow-up will also be arranged for full PFTs and symptom management/monitoring.
Hopefully improve enough to be discharged in the next 24 to 48 hours per
Data:
CT Chest/Abd/Pelvis 01/28/2025:
Bilateral lower lobe opacification with air bronchograms compatible with atelectasis and/or pneumonia with small bilateral pleural effusions.
Right perihilar opacification extending into the right upper lobe which may represent pneumonitis with accompanying small to moderate right hilar and small mediastinal lymph nodes. Unfortunately, malignancy centrally in the right hemithorax cannot
be excluded. Recommend short-term follow-up Chest CT.
Small pericardial effusion.
2.7 cm simple right lobe hepatic cyst.
Cholelithiasis. No findings to suggest biliary tract dilatation.
No right lower quadrant inflammatory changes, intestinal obstruction or free air.
Subjective Data
-
Date of Service:
Date of Service: February 01, 2025
Chief Complaint: Pulmonary Follow Up (Pneumonia)
Subjective:
Continues to feel fatigue
Reports exertional shortness of breath
Denies hemoptysis
Diarrhea has resolved
Denies nausea or vomiting
Review of Systems
General: Fever (Low-grade)
Cardiopulmonary: Dyspnea on Exertion and Cough
GI: Abdominal Pain (n) and Nausea (n)
Objective Data
Data Reviewed
Vital Signs / I&O / Oxygen:
Vital Signs
Temp Pulse Resp BP Pulse Ox
100.2 F 89 16 120/68 92
02/01/25 08:09 02/01/25 10:00 02/01/25 08:09 02/01/25 08:26 02/01/25 09:09
Intake and Output
01/31/25 02/01/25 02/02/25
06:59 06:59 06:59
Intake Total 480 / 480
Output Total 650 / 650
Balance -170 / -170
SaO2 92
Nasal Cannula flow liters per 4
minute
Physical Exam
General: Respiratory Distress (n) and Comfortable
HEENT: Normocephalic
Cardiovascular: S1-S2
Respiratory: Wheeze (n), Crackles (bases.) and Non-Labored Respirations
GI: Soft and Non Distended
Neurology: Awake, Oriented, AO x 3 and No Motor Deficits
Skin: Warm
Labs/Micro/Reports
Lab Data
02/01/25 02:54
02/01/25 02:54
Microbiology
02/01/25 04:37 Sputum Respiratory Culture - Final
02/01/25 04:37 Sputum Gram Stain - Final
01/28/25 11:13 Blood/Venous Blood Culture - Preliminary
No Growth in 72 hours- Final report to follow
01/30/25 01:28 Nose MRSA Screen - Final
No Methicillin Resistant Staphylococcus aureus isolated.
01/27/25 00:45 Feces/Stool Salmonella/Shigella Culture - Final
No Salmonella, Shigella, Aeromonas or Plesiomonas species
isolated.
01/27/25 00:45 Feces/Stool Campylobacter Culture - Final
No Campylobacter species isolated.
01/27/25 00:45 Feces/Stool Shiga Toxin Test - Final
No E. coli Shiga Toxin 1 or 2 detected.
01/30/25 01:28 Urine Legionella Urinary Antigen - Final
Positive for L. pneumophila Ag
01/30/25 01:28 Urine Streptococcus pneumoniae Antigen (M - Final
Negative for Streptococcus pneumoniae antigen.
A negative result does not exclude infection with
Streptococcus pneumoniae. Clinical correlation is
recommended.
[2025-02-01 11:18] VITALS: BP 113/73
--- NOTE | 2025-02-01 12:08 | RESPNOTE ---
home 02 assessment completed as ordered
at room air pt was 86% at rest, after 2 LPM 02 applied 02 sats increased to 90% at rest.
pt required 4 LPM of 02 to walk roughly 80 feet with 02 sats of 90%
--- NOTE | 2025-02-01 13:11 | W.PN.HOSP.TC ---
Today's Communication/Plan
-
Continue Iv Azithromycin
Continue Eliquis
Cardiac med changes as below
Assessment / Plan
Assessment / Plan
Physical Exam
General: Not in acute distress
HEENT: Normocephalic, Atraumatic
Respiratory: basal rales right side > left side, no wheezes.
Cardiac: S1/S2, no Tachycardia
GI: Soft and Non Tender. Positive bowel sounds.
Musculoskeletal: No Cyanosis
Skin: Warm and Dry
Neuro: Awake, Alert, Oriented and Nonfocal/grossly intact
Psych: Calm
Assessment/Plan
79 y/o female with past medical history of hypertension, hypothyroidism and anxiety who presented with headache, fever, new onset atrial fibrillation, dizziness and diarrhea.
#Legionnaires' disease
#Presented with Fever, diarrhea, leukocytosis, fever , she is meeting criteria of sepsis POA, on admission source was GI
#Fever -- last fever temperature was 101.7 F on 01/30/25 evening
- Can explain fever, pneumonia, confusion, diarrhea
- Still with temperature 100.2 F on February 01, 2025 morning
- Urine + for Legionella pneumophila => IV Azithromycin 500 mg daily added on January 30, 2025 to Rocephin
- Completed 5 days or Rocephin --> discontinue Rocephin
- Consideration for transition to PO (from IV) Azithromycin 500 mg daily tomorrow depending on vital signs and patient's clinical status
- Total duration of Azithromycin 14 days: continue through February 12, 2025
- Pulmonary involved, appreciate their evaluation and recommendations
#New-Onset Atrial Fibrillation with Rapid Ventricular Response. Patient was not taking Toprol XL for a few days prior to arrival
-Monitored in IVU
better HR, previously stopped IV Cardizem gtt, changed to oral Cardizem CD 120 mg BID --> now decreased to oral Cardizem 120 mg daily since patient is having less atrial fibrillation
Stop Metoprolol since patient is having less atrial fibrillation
[id number] around 4 for age, sex, HTN, status post IV Heparin Drip
Continue Eliquis
Echo 01/27/25 showed LVEF 60-65%, Mild AI.
-Consulted Cardiology, help appreciated.
-According to cardiology, perhaps in 1-2 months check a 14 d monitor as she did not feel the A-Fib
# Acute hypoxic respiratory failure
Hypoxia is resolving, weaning off nasal O2 --> still requiring oxygen
CT Chest noted
Not a smoker.
Appreciate pulmonary help
Home O2 assessment
#Suspected Acute on Chronic HFpEF suspected from A-Fib and Volume Resuscitation
-Possible from IV fluids and also has had rapid A-Fib
-Stop IV Lasix as of 02/01/25
-Start Lasix 40 mg PO one time a day
-Decrease KCl and likely no Lasix/KCl will be needed at discharge
#Hypokalemia
-Monitor and replace potassium
#Elevated Troponin, suspect non-ischemic myocardial injury in setting of rapid a-fib
-Continue to trend troponin
-Checked Echocardiogram, no regional wall motion abnormalities, no chest pain
Troponin trending down
# TME
Resolved
Had a fall this hospitalization, requested bed alarm. She seems back to baseline today, fully oriented.
# Small bilateral pleural effusion, with acute pulmonary edema ( non cardiogenic).
ok to c/w Lasix.
# Non-ischemic myocardial injury - acute in setting of new rapid Afib, peak troponin 0.308
# Hypokalemia
Replaced
# Hyperhidrosis
-Hold home Glycopyrrolate for now given anticholinergic effects which could have contributed to patient's symptoms
-Patient's daughter did mention that patient is sweating more, but patient does have chronic sweating more
#Hyponatremia, mildly likely hypovolemic in nature
-Resolved with IVF
#Essential Hypertension
-Continue current medications
#Hyperlipidemia
-Continue Zetia
#Post-Surgical Hypothyroidism
-Continue levothyroxine
#Abnormal CT findings, malignancy not ruled out
-Patient will need a repeat CT Chest in 4-6 weeks to assure that her right perihilar consolidation improves
#Anxiety
-Continue Zoloft
DVT Prophylaxis: Eliquis
Code Status: Full Code
Anticipated Discharge: 24 - 48 hours
Subjective/Interval History
-
Date of Service: February 01, 2025
Patient was seen and examined. She denied any new symptoms or complaints.
Objective Data
-
Labs:
Laboratory Results
02/01/25
02:54
WBC 13.7 H
Hgb 13.2
Hct 39.0
Plt Count 228
Sodium 135
Potassium 4.7 D
Chloride 100
Carbon Dioxide 27
BUN 19 H
Creatinine 0.8
Glucose 114 H
Calcium 8.2 L
Vital Signs:
Vital Signs
Temp Pulse Resp BP Pulse Ox
100.2 F 88 22 113/73 92
02/01/25 11:21 02/01/25 11:18 02/01/25 11:21 02/01/25 11:18 02/01/25 11:21
I&O
01/31/25 02/01/25 02/02/25
06:59 06:59 06:59
Intake Total 480 / 480
Output Total 650 / 650
Balance -170 / -170
[2025-02-01] MEDS: ROCEPHIN 1000 MG IV (13:54)
[2025-02-01] MEDS: ZETIA 10 MG PO (13:55)
[2025-02-01] MEDS: STERILE WATER FOR INJECTION 10 ML IV (13:55)
[2025-02-01 16:35] VITALS: BP 107/73
--- NOTE | 2025-02-01 18:00 | PTCARENOTE ---
Pt is AOx3, no complaints of pain or discomfort. Pt reports feelings extremely tired today. Daughter at bedside. Encouraged pt to eat food/drink. SR on tele monitor, VSS. 4L O2 via NC, sats 92%. Call marques within reach.
[2025-02-01 19:45] VITALS: BP 110/70
[2025-02-01 22:19] VITALS: BP 110/70
[2025-02-02] VITALS (12 sets, daily range): BP systolic 94–107; BP diastolic 60–89; BMI 26.1
--- NOTE | 2025-02-02 00:04 | PTCARENOTE ---
Received patient at change of shift.SR on the monitor, HR in the 80s. 92% on 4L. Pt complains of frequent non productive cough, PRN cough syrup administered as per order, see MAR. Call marques within reach.
[2025-02-02] MEDS: SYNTHROID 88 MCG PO (04:50)
[2025-02-02] MEDS: CARDIZEM 5 MG IV ×2 (04:50→06:07)
[2025-02-02 05:09] LABS: Blood Urea Nitrogen 18 mg/dl (7-17); Carbon Dioxide 28 mmol/L (22-30); Chloride 99 mmol/L (98-107); Estimated Creatinine Clearance 58 ml/min; Glucose 113 mg/dl (70-99); Magnesium 2.1 mg/dl (1.6-2.3); Potassium 4.3 mmol/L (3.5-5.1); Sodium 133 mmol/L (135-145); eGFR > 60.00
[2025-02-02 06:06] LABS: % Basophils 0.7 % (0-2); % Lymphocytes 4.9 % (20.5-51.1); % Monocytes 1.2 % (1.7-9.3); % Neutrophils 86.2 % (42.2-75.2); Absolute Basophils 0.1 10^3/uL (0-0.2); Absolute Eosinophils 0.1 10^3/uL (0-0.7); Absolute Immature Granulocytes 0.8 10^3/uL (0-0.05); Absolute Lymphocytes 0.7 10^3/uL (1.2-3.4); Absolute Monocytes 0.2 10^3/uL (0.1-0.6); Absolute Neutrophils 11.6 10^3/uL (1.4-6.5); Hematocrit 40.2 % (37.0-47.0); Hemoglobin 13.7 g/dL (12.0-16.0); Mean Corp Hgb Conc. 34.1 g/dL (33.0-37.0); Mean Corpuscular Hgb 29.5 pg (27.0-31.0); Mean Corpuscular Volume 86.5 fL (81.0-99.0); Mean Platelet Volume 10.8 fL (7.4-10.4); Nucleated Red Blood Cells % 0 %; Platelet Count 168 10^3/uL (130-400); Red Blood Cell Count 4.65 10^6/uL (4.20-5.40); Red Cell Dist. Width 14.9 % (11.5-14.5); White Blood Cell Count 13.4 10^3/uL (4.8-10.8)
--- NOTE | 2025-02-02 06:19 | PTCARENOTE ---
Pt converted into Afib with a HR int the 140-150s. BP 102/68. Asymptomatic. ELECTRICAL TIMING DEVICE CALIBRATOR Aidan Woo notified. 5mg IV Cardizem administered as per ELECTRICAL TIMING DEVICE CALIBRATOR. No change in HR or BP 1 hour after dose, another dose administered as per ELECTRICAL TIMING DEVICE CALIBRATOR.
--- NOTE | 2025-02-02 06:24 | W.PN.UPDATE ---
Update Note
Progress Note Update
HR 120's -150's Irregular Afib BP 106/68 asymptomatic, afebrile Labs WNL
HR 150's Cardizem IV 5mg given
one hour later HR remains in 150's. Cardizem 5mg IV given
one hour later HR in 130's 104/70 98.4, 18, 92%, will start cardizem drip
[2025-02-02] MEDS: CARDIZEM 125 IV (07:20)
[2025-02-02] MEDS: TESSALON PERLES 200 MG PO ×2 (07:27→21:41)
[2025-02-02] MEDS: LASIX 40 MG PO (07:27)
[2025-02-02] MEDS: ELIQUIS 5 MG PO ×2 (07:27→20:00)
[2025-02-02] MEDS: PEPCID 20 MG PO (07:27)
[2025-02-02] MEDS: ZOLOFT 50 MG PO (07:27)
[2025-02-02] MEDS: KCL ELIXIR 40 MEQ PO (07:28)
[2025-02-02] MEDS: LIDOCAINE 4% PATCH 1 PATCH TOPICAL (07:28)
--- NOTE | 2025-02-02 07:56 | W.PN.HOSP.TC ---
Today's Communication/Plan
-
Amiodarone given A-Fib RVR
Continue PO Azithromycin
Continue to monitor in IVU
Assessment / Plan
Assessment / Plan
Physical Exam
General: Not in acute distress
HEENT: Normocephalic, Atraumatic
Respiratory: basal rales right side > left side, no wheezes.
Cardiac: S1/S2. Tachycardia.
GI: Soft and Non Tender. Positive bowel sounds.
Musculoskeletal: No Cyanosis
Skin: Warm and Dry
Neuro: Awake, Alert, Oriented and Nonfocal/grossly intact
Psych: Calm
Assessment/Plan
79 y/o female with past medical history of hypertension, hypothyroidism and anxiety who presented with headache, fever, new onset atrial fibrillation, dizziness and diarrhea.
#Legionnaires' disease
#Presented with Fever, diarrhea, leukocytosis, fever , she is meeting criteria of sepsis POA, on admission source was GI
#Fever -- last fever temperature was 101.7 F on 01/30/25 evening
- Can explain fever, pneumonia, confusion, diarrhea
- Still with temperature 100.2 F on February 01, 2025 morning -- temperature okay since then
- Urine + for Legionella pneumophila => IV Azithromycin 500 mg daily added on January 30, 2025 to Rocephin
- Completed 5 days or Rocephin --> discontinued Rocephin on 02/02/25
- Transition to PO (from IV) Azithromycin 500 mg daily -- continue Azithromycin 500 mg PO daily
- Total duration of Azithromycin 14 days: continue through February 12, 2025
- Pulmonary involved, appreciate their evaluation and recommendations
#New-Onset Atrial Fibrillation with Rapid Ventricular Response. Patient was not taking Toprol XL for a few days prior to arrival
-AFib RVR again overnight 02/01-02/02
-Start Amiodarone -- monitor QTc given Azithromycin
-Diltiazem stopped
-Stop Metoprolol since patient is having less atrial fibrillation
-[id number] around 4 for age, sex, HTN, status post IV Heparin Drip
-Continue Eliquis
-Echo 01/27/25 showed LVEF 60-65%, Mild AI.
-Consulted Cardiology, help appreciated.
-According to cardiology, perhaps in 1-2 months check a 14 d monitor as she did not feel the A-Fib
#c/o of throat and jaw pain - Unclear etiology.
Headache has resolved since admission. Denies blurry vision.
?thrush
Nystatin- swish and spit.
# Acute hypoxic respiratory failure
Hypoxia is resolving, weaning off nasal O2 --> still requiring oxygen
CT Chest noted
Not a smoker.
Appreciate pulmonary help
Home O2 assessment
#Suspected Acute on Chronic HFpEF suspected from A-Fib and Volume Resuscitation
-Possible from IV fluids and also has had rapid A-Fib
-Stopped IV Lasix as of 02/01/25
-Stop Lasix 40 mg PO one time a day given diarrhea and slight hypovolemia
-Decrease KCl and likely no Lasix/KCl will be needed at discharge
#Hypokalemia
-Monitor and replace potassium
#Elevated Troponin, suspect non-ischemic myocardial injury in setting of rapid a-fib
-Continue to trend troponin
-Checked Echocardiogram, no regional wall motion abnormalities, no chest pain
Troponin trending down
# TME
Resolved
Had a fall this hospitalization, requested bed alarm. She seems back to baseline today, fully oriented.
# Small bilateral pleural effusion, with acute pulmonary edema ( non cardiogenic).
ok to c/w Lasix.
# Non-ischemic myocardial injury - acute in setting of new rapid Afib, peak troponin 0.308
# Hypokalemia
Replaced
# Hyperhidrosis
-Hold home Glycopyrrolate for now given anticholinergic effects which could have contributed to patient's symptoms
-Patient's daughter did mention that patient is sweating more, but patient does have chronic sweating more
#Hyponatremia, mildly likely hypovolemic in nature
-Resolved with IVF
#Essential Hypertension
-Continue current medications
#Hyperlipidemia
-Continue Zetia
#Post-Surgical Hypothyroidism
-Continue levothyroxine
#Abnormal CT findings, malignancy not ruled out
-Patient will need a repeat CT Chest in 4-6 weeks to assure that her right perihilar consolidation improves
#Anxiety
-Continue Zoloft
DVT Prophylaxis: Eliquis
Code Status: Full Code
Anticipated Discharge: > 48 hours
Subjective/Interval History
-
Date of Service: February 02, 2025
Patient was seen and examined. She denied any chest pain or shortness of breath.
Objective Data
-
Labs:
Laboratory Results
02/02/25
04:17
WBC 13.4 H
Hgb 13.7
Hct 40.2
Plt Count 168 D
Sodium 133 L
Potassium 4.3
Chloride 99
Carbon Dioxide 28
BUN 18 H
Creatinine 0.7
Glucose 113 H
Calcium 8.0 L
Vital Signs:
Vital Signs
Temp Pulse Resp BP Pulse Ox
97.7 F 156 24 103/76 92
02/02/25 07:11 02/02/25 07:27 02/02/25 07:11 02/02/25 07:27 02/02/25 07:11
I&O
02/01/25 02/02/25 02/03/25
06:59 06:59 06:59
Intake Total 150 / 150
Balance 150 / 150
[2025-02-02] MEDS: ZITHROMAX INFUSION IV ×2 (09:21→09:31)
[2025-02-02] MEDS: ZITHROMAX 500 MG PO (09:52)
--- NOTE | 2025-02-02 10:02 | W.PN.CD ---
Today's Communication / Plan
-
start amiodarone
hold diltiazem
monitor QTC, ecg in am
Impression / Plan
-
Legionnaires' disease perhaps a unifying diagnosis
- Pneumonia, on ATBs per hospitalist and pulmonary
- Ceftriaxone and then Azithromycin started on 01/30/2025
- Diarrhea, per hospitalist
- Still on O2 [address] findings, malignancy not ruled out
- Pulmonary plans repeat imaging in 4-6 weeks
Afib - new onset in the ER, RVR.
-recurrent RVR, discussed with Dr Tirado(EP)
-will need to transiently use Amiodarone, and monitor QTc given the need for Azithromycin
-Will hold diltiazem
- On PO Eliquis
- [id number] at least 5 (age4, htN, suspected acute HF, gender)
Suspected HFpEF
- Precipitated by rapid AFib and IV Fluids
- Decrease Lasix from IV BID to PO one time daily
-will hold as she has recurrent diarrhea
- Suspect no Lasix/KCl at discharge
Non-ischemic myocardial injury - acute in setting of new rapid Afib, peak troponin 0.308
Mandibular pain:
-reproducible on exam c/w MSK etiology
HTN
HLD
Hypothyroidism
Anxiety
Subjective: feels so tired, pain on both sides of jaw if she moves it
Echo : Normal LV/RV. Mild AR. Stable from 04/01/22.
CT chest/abdomen 01/28/2025:
Bilateral lower lobe opacification with air bronchograms compatible with atelectasis and/or pneumonia with small bilateral pleural effusions. Right perihilar opacification extending into the right upper lobe which may represent pneumonitis with
accompanying small to moderate right hilar and small mediastinal lymph nodes. Unfortunately, malignancy centrally in the right hemithorax cannot be excluded. Recommend short-term follow-up Chest CT. Small pericardial effusion. 2.7 cm simple right
lobe hepatic cyst. Cholelithiasis. No findings to suggest biliary tract dilatation. No right lower quadrant inflammatory changes, intestinal obstruction or free air.
Physical Exam
Vital Signs/Labs
Vital Signs
Temp Pulse Resp BP Pulse Ox
97.7 F 156 24 103/76 92
02/02/25 07:11 02/02/25 07:27 02/02/25 07:11 02/02/25 07:27 02/02/25 07:11
02/01/25 02/02/25 02/03/25
06:59 06:59 06:59
Actual Weight 154 lb 5.177 oz 151 lb 14.376 oz
02/02/25 04:17
02/02/25 04:17
APTT 42.3 Sec (23.4-35.0) H 01/28/25 14:54
Magnesium 2.1 mg/dl (1.6-2.3) 02/02/25 04:17
Physical Exam
Constitutional: No acute distress
Cardiovascular: Pedal edema is absent, Systolic murmur absent, Diastolic murmur absent and Rhythm/rate is irregular
Respiratory: Respiratory effort normal and Crackles Present (bilaterally 1/2 up)
GI: Soft
Neuro/Psych: AO x 3
Data Reviewed
-
Date of Service: February 02, 2025
EKG: Other (afib with rvr)
[2025-02-02] MEDS: CORDARONE 103 MG IV (10:56)
--- NOTE | 2025-02-02 11:00 | W.PN.PUL3 ---
Today's Communication / Plan
-
Continue management for rapid atrial fibrillation
Transition to oral azithromycin today
Incentive spirometer
Continue oxygen supplementation
Nystatin swish and spit -? thrush - throat pain and ?jaw pain
Will follow
Assessment
-
Assessment: 79-year-old female with a past medical history of GERD, anemia, iron deficiency, thyroid disease, hyperlipidemia, hypertension and anxiety who presents with head congestion, cough, diarrhea and reduced appetite for 2 days. She was
initially afebrile to 98.9 �F. Initial WBC 16.2, sodium 131, chloride 96, troponin 0.308, UA showed + ketones. Initial flu swab negative. Urine culture collected. Due to headache and balance issues, CT head obtained showing no acute intracranial
abnormality. She was also in new onset A-fib with RVR. She initially was admitted to the hospitalist service for rate control, given IVF, and stool studies were ordered. She had required supplemental oxygen initially at 2 L and then on 01/29 oxygen
requirements increased to 4 L/min. Due to her hypoxia, diarrhea and fevers, CT chest, abdomen/pelvis was done on 02/24/2025 showing bilateral pleural effusions, right perihilar opacity extending into the right upper lobe with right hilar and small
mediastinal lymphadenopathy � unable to rule out malignancy. Also a small pericardial effusion. Pulmonary service now consulted for additional recommendations.
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
Impression:
#Acute hypoxic respiratory failure due to acute decompensated heart failure in the setting of suspected right perihilar pneumonia; unable to rule out malignancy
Positive Legionella pneumonia urine antigen 01/30/2025
#New onset A-fib with RVR
#Pneumonia - right perihilar region and possibly lower lobes, although lower lobes is likely compressive atelectasis and not an infection
#Small pericardial effusion seen on CT chest 01/28/2025
#Cholelithiasis
#Elevated troponin � likely due to demand ischemia with type II OH
#Febrile illness
#Diarrhea
#Hypothyroidism
Plan:
Clinical picture consistent with pneumonia.
Leukocytosis improving
Fever curve trending [id number] fever overnight-Tmax 100.2 ---02/01.
Legionella urine antibody + 01/30/2025
Normal LFT and renal function.
Pt report exposure to mice dropping at home few days prior getting sick.
-
Day #5 of ceftriaxone discontinued 02/01/2025.
Day #4 of azithromycin-transition to p.o. azithromycin 02/02/2025 and complete 14 days.
-
- CT chest/abdomen/pelvis on 01/28/2025 showing a right perihilar consolidative opacity and additional opacities in the right middle lobe + lingula, and bilateral pleural effusions with adjacent bibasilar consolidative opacities --> she will need a
repeat CT Chest in 4-6 weeks to assure that her right perihilar consolidation improves.
- No recent prior imaging to compare.
Continue symptomatic management:
- Continue Tessalon Perles + prn codeine cough syrup due to bothersome coughing spells.
-
Rapid atrial fibrillation: Amiodarone started 02/02/2025-had an episode of rapid atrial fibrillation with heart rate into the 150s.
Not hypotensive
Cardiology following
Diuresis per cardiology discretion.
- Continue to monitor diarrhea-intermittently; C. difficile testing was negativ; Campylobacter + Salmonella/Shigella cultures both negative
Benign abdominal exam.
Hypoxemic respiratory failure on 4 L supplemental oxygen. 2 L of breath. Not worsening.
Home oxygen assessment today
- prn nebulized bronchodilators - not currently bronchospastic
- Incentive spirometer encouraged q1hr while awake
c/o of throat and jaw pain - Unclear etiology.
Headache has resolved since admission. Denies blurry vision.
?thrush
Will add nystatin- swish and spit.
Defer further eval to primary team
Physical therapy and Occupational Therapy as tolerated.
- DVT ppx: Eliquis due to A-fib
Dr. Berry has updated tej at bedside on daily basis.
Pulmonary service will continue to follow along. Outpatient pulmonary follow-up will also be arranged for full PFTs and symptom management/monitoring.
Data:
CT Chest/Abd/Pelvis 01/28/2025:
Bilateral lower lobe opacification with air bronchograms compatible with atelectasis and/or pneumonia with small bilateral pleural effusions.
Right perihilar opacification extending into the right upper lobe which may represent pneumonitis with accompanying small to moderate right hilar and small mediastinal lymph nodes. Unfortunately, malignancy centrally in the right hemithorax cannot
be excluded. Recommend short-term follow-up Chest CT.
Small pericardial effusion.
2.7 cm simple right lobe hepatic cyst.
Cholelithiasis. No findings to suggest biliary tract dilatation.
No right lower quadrant inflammatory changes, intestinal obstruction or free air.
Subjective Data
-
Date of Service:
Date of Service: February 02, 2025
Chief Complaint: Pulmonary Follow Up (Pneumonia)
Subjective:
Rapid atrial fibrillation noted earlier today
Remains on low rate supplemental oxygen
c/o throat pain and jaw pain since last night
Remains fatigued.
Review of Systems
Cardiopulmonary: Dyspnea (None at rest)
GI: Abdominal Pain (n) and Diarrhea
Objective Data
Data Reviewed
Vital Signs / I&O / Oxygen:
Vital Signs
Temp Pulse Resp BP Pulse Ox
97.7 F 156 24 103/76 92
02/02/25 07:11 02/02/25 07:27 02/02/25 07:11 02/02/25 07:27 02/02/25 07:11
Intake and Output
02/01/25 02/02/25 02/03/25
06:59 06:59 06:59
Intake Total 150 / 150
Balance 150 / 150
SaO2 92
Nasal Cannula flow liters per 4
minute
Physical Exam
General: Respiratory Distress (n) and Comfortable
HEENT: Normocephalic
Cardiovascular: S1-S2
Respiratory: Wheeze (n), Crackles (bases.) and Non-Labored Respirations
GI: Soft and Non Distended
Neurology: Awake, Oriented, AO x 3 and No Motor Deficits
Skin: Warm
Labs/Micro/Reports
Lab Data
02/02/25 04:17
02/02/25 04:17
Microbiology
01/28/25 11:13 Blood/Venous Blood Culture - Preliminary
No Growth in 4 days- Final report to follow
02/01/25 04:37 Sputum Respiratory Culture - Final
02/01/25 04:37 Sputum Gram Stain - Final
01/30/25 01:28 Nose MRSA Screen - Final
No Methicillin Resistant Staphylococcus aureus isolated.
01/27/25 00:45 Feces/Stool Salmonella/Shigella Culture - Final
No Salmonella, Shigella, Aeromonas or Plesiomonas species
isolated.
01/27/25 00:45 Feces/Stool Campylobacter Culture - Final
No Campylobacter species isolated.
01/27/25 00:45 Feces/Stool Shiga Toxin Test - Final
No E. coli Shiga Toxin 1 or 2 detected.
01/30/25 01:28 Urine Legionella Urinary Antigen - Final
Positive for L. pneumophila Ag
01/30/25 01:28 Urine Streptococcus pneumoniae Antigen (M - Final
Negative for Streptococcus pneumoniae antigen.
A negative result does not exclude infection with
Streptococcus pneumoniae. Clinical correlation is
recommended.
[2025-02-02] MEDS: CORDARONE 518 MG IV (11:07)
--- NOTE | 2025-02-02 11:30 | CM ---
Chart reviewed. Patient is independent of ADLS, lives alone in a 2 [address], 1st floor set up, recently has been ambulating with a SPC. PT evaluation recommending SNF. Referrals sent to [facility] and [facility]. Patient prefers [facility],
closer for patient's daughter. Patient will need an insurance authorization before transfer. CM to follow
[2025-02-02] MEDS: ZETIA 10 MG PO (12:08)
[2025-02-02] MEDS: MYCOSTATIN ORAL SUSPENSION 5 ML PO ×3 (12:08→21:42)
--- NOTE | 2025-02-02 12:37 | PTCARENOTE ---
Assumed care of pt from creative coordinator RN. AAOx3. Afib on tele, HRs 100s-150s. Pt started on Cardizem gtt and titrated up to 15mg/hr for goal HR 80-100. Pt converted to NSR at approximately 0840 with HRs 90s; however, converted back to afib again at
0940 with HRs 110s-160s. After Cardiology saw pt at bedside decision was made to discontinue Cardizem gtt and initiate Amio bolus and gtt. Pt received Amio bolus and is currently on gtt at 1mg/min (33.3 mL/hr). 0.[address] for amio
gtt, infusing through L FA PIV. Pt remains in afib with HRs 110s-120s at this time. Pt continues with loose BMs. Stool sample sent for repeat c.diff testing. IV abx switched to oral by pulmonology. Oral nystatin also ordered for thrush. Pt resting
in bed at this time. Family at bedside, call marques in reach. Assessment documented.
[2025-02-02] MEDS: TYLENOL 1000 MG PO ×2 (14:20→21:41)
--- NOTE | 2025-02-02 15:38 | PTCARENOTE ---
tylenol given for severe jaw and throat pain. reports it helped a ton. eating ice cream now. will continue to monitor.
[2025-02-02] MEDS: TESSALON PERLES PO (17:01)
--- NOTE | 2025-02-02 22:55 | PTCARENOTE ---
Received patient at change of shift. Afib on the monitor, HR in the 110s. 94% on 4L. Amio running as per order, see NOV. Pt complains of 5/10 pain in her cheeks, PRN Tylenol administered, see NOV. Call marques within reach.
[2025-02-03] VITALS (11 sets, daily range): BP systolic 101–121; BP diastolic 62–87; PULSE 99–101; O2SAT 94–95; BMI 26.0
[2025-02-03 04:47] LABS: Hematocrit 41.8 % (37.0-47.0); Hemoglobin 14.3 g/dL (12.0-16.0); Mean Corp Hgb Conc. 34.2 g/dL (33.0-37.0); Mean Corpuscular Hgb 29.2 pg (27.0-31.0); Mean Corpuscular Volume 85.3 fL (81.0-99.0); Platelet Count 174 10^3/uL (130-400); Red Cell Dist. Width 14.8 % (11.5-14.5); White Blood Cell Count 19.4 10^3/uL (4.8-10.8)
[2025-02-03 05:19] LABS: % Basophils 0.7 % (0-2); % Eosinophils 0.8 % (0-6); % Immature Granulocytes 5.8 % (0-0.5); % Lymphocytes 4.8 % (20.5-51.1); % Monocytes 1.6 % (1.7-9.3); % Neutrophils 86.3 % (42.2-75.2); Absolute Basophils 0.1 10^3/uL (0-0.2); Absolute Eosinophils 0.2 10^3/uL (0-0.7); Absolute Immature Granulocytes 1.1 10^3/uL (0-0.05); Absolute Lymphocytes 0.9 10^3/uL (1.2-3.4); Absolute Monocytes 0.3 10^3/uL (0.1-0.6); Absolute Neutrophils 16.8 10^3/uL (1.4-6.5); Nucleated Red Blood Cells % 0 %
[2025-02-03] MEDS: SYNTHROID 88 MCG PO (06:02)
[2025-02-03 06:12] LABS: Blood Urea Nitrogen 19 mg/dl (7-17); Calcium 8.2 mg/dl (8.4-10.2); Carbon Dioxide 29 mmol/L (22-30); Chloride 97 mmol/L (98-107); Estimated Creatinine Clearance 58 ml/min; Glucose 147 mg/dl (70-99); Potassium 4.2 mmol/L (3.5-5.1); Sodium 133 mmol/L (135-145); eGFR > 60.00
[2025-02-03] MEDS: KCL ELIXIR 40 MEQ PO (08:10)
[2025-02-03] MEDS: LIDOCAINE 4% PATCH 1 PATCH TOPICAL (08:10)
[2025-02-03] MEDS: TESSALON PERLES 200 MG PO ×2 (08:11→15:54)
[2025-02-03] MEDS: PEPCID 20 MG PO (08:11)
[2025-02-03] MEDS: ELIQUIS 5 MG PO ×2 (08:11→19:41)
[2025-02-03] MEDS: ZOLOFT 50 MG PO (08:11)
[2025-02-03] MEDS: MYCOSTATIN ORAL SUSPENSION 5 ML PO ×4 (08:11→22:46)
[2025-02-03] MEDS: ZITHROMAX 500 MG PO (08:13)
[2025-02-03] MEDS: PACERONE 400 MG PO ×2 (08:33→19:41)
--- NOTE | 2025-02-03 08:51 | W.PN.HOSP.TC ---
Today's Communication/Plan
-
Continue treatment for Legionella
Continue Amiodarone
Assessment / Plan
Assessment / Plan
Physical Exam
General: Not in acute distress
HEENT: Normocephalic, Atraumatic. Oropharynx with mild erythema.
Respiratory: basal rales right side > left side, no wheezes.
Cardiac: S1/S2. Tachycardia.
GI: Soft and Non Tender. Positive bowel sounds.
Musculoskeletal: No Cyanosis
Skin: Warm and Dry
Neuro: Awake, Alert, Oriented and Nonfocal/grossly intact
Psych: Calm
Assessment/Plan
79 y/o female with past medical history of hypertension, hypothyroidism and anxiety who presented with headache, fever, new onset atrial fibrillation, dizziness and diarrhea.
#Legionnaires' disease
#Presented with Fever, diarrhea, leukocytosis, fever , she is meeting criteria of sepsis POA, on admission source was GI
#Fever -- last fever temperature was 101.7 F on 01/30/25 evening
- Can explain fever, pneumonia, confusion, diarrhea
- Still having diarrhea, suspected from antibiotics, repeat stool studies unremarkable
- Still with temperature 100.2 F on February 01, 2025 morning -- temperatures okay since then
- Urine + for Legionella pneumophila => IV Azithromycin 500 mg daily added on January 30, 2025 to Rocephin
- Completed 5 days or Rocephin --> discontinued Rocephin on 02/02/25
- Transition to PO (from IV) Azithromycin 500 mg daily -- continue Azithromycin 500 mg PO daily
- Total duration of Azithromycin 14 days: continue through February 12, 2025
- Pulmonary involved, appreciate their evaluation and recommendations
- Given tachycardia and high Pneumonia Severity Index --> check repeat blood cultures x2
#New-Onset Atrial Fibrillation with Rapid Ventricular Response. Patient was not taking Toprol XL for a few days prior to arrival
-AFib RVR again overnight 02/01-02/02
-Continue Amiodarone -- monitor QTc daily given that patient is on Azithromycin
-Diltiazem and Metoprolol also stopped
-[id number] around 4 for age, sex, HTN, status post IV Heparin Drip
-Continue Eliquis
-Echo 01/27/25 showed LVEF 60-65%, Mild AI.
-Consulted Cardiology, help appreciated.
-According to cardiology, perhaps in 1-2 months check a 14 d monitor as she did not feel the A-Fib
#c/o of throat and jaw pain - Unclear etiology - IMPROVING
-?thrush
-Headache has resolved since admission. Denies blurry vision.
-Continue Nystatin- swish and spit -- improving with this
-Check throat culture
# Acute hypoxic respiratory failure
Still requiring oxygen
CT Chest noted
Not a smoker.
Appreciate pulmonary help
Home O2 assessment to be done closer to discharge
Continue Incentive Spirometer
#Suspected Acute on Chronic HFpEF suspected from A-Fib and Volume Resuscitation
-Possible from IV fluids and also has had rapid A-Fib
-Stopped IV Lasix as of 02/01/25
-Stop Lasix 40 mg PO one time a day given diarrhea and slight hypovolemia
-Decrease KCl and likely no Lasix/KCl will be needed at discharge
#Hypokalemia
-Monitor and replace potassium
#Elevated Troponin, suspect non-ischemic myocardial injury in setting of rapid a-fib
-Continue to trend troponin
-Checked Echocardiogram, no regional wall motion abnormalities, no chest pain
Troponin trending down
# TME
Resolved
Had a fall this hospitalization, requested bed alarm. She seems back to baseline today, fully oriented.
# Small bilateral pleural effusion, with acute pulmonary edema ( non cardiogenic).
-Hold Lasix for now as above
# Non-ischemic myocardial injury - acute in setting of new rapid Afib, peak troponin 0.308
# Hyperhidrosis
-Hold home Glycopyrrolate for now given anticholinergic effects which could have contributed to patient's symptoms
-Patient's daughter did mention that patient is sweating more, but patient does have chronic sweating more
#Hyponatremia, mildly likely hypovolemic in nature
-Resolved with IVF
#Essential Hypertension
-Continue current medications
#Hyperlipidemia
-Continue Zetia
#Post-Surgical Hypothyroidism
-Continue levothyroxine
#Abnormal CT findings, malignancy not ruled out
-Patient will need a repeat CT Chest in 4-6 weeks to assure that her right perihilar consolidation improves
#Anxiety
-Continue Zoloft
DVT Prophylaxis: Eliquis
Code Status: Full Code
On February 03, 2025, I spoke with patient's daughter and answered all her questions and concerns to satisfaction.
Anticipated Discharge: > 48 hours
Subjective/Interval History
-
Date of Service: February 03, 2025
Patient was seen and examined. She reported feeling okay, still with elevated heart rates, her throat and jaw pain are better today.
Objective Data
-
Labs:
Laboratory Results
02/03/25 02/03/25
04:28 05:27
WBC 19.4 H
Hgb 14.3
Hct 41.8
Plt Count 174
Sodium Cancelled 133 L
Potassium Cancelled 4.2
Chloride Cancelled 97 L
Carbon Dioxide Cancelled 29
BUN Cancelled 19 H
Creatinine Cancelled 0.7
Glucose Cancelled 147 H
Calcium Cancelled 8.2 L
Vital Signs:
Vital Signs
Temp Pulse Resp BP Pulse Ox
97.9 F 142 22 114/83 95
02/03/25 07:12 02/03/25 08:33 02/03/25 07:12 02/03/25 08:33 02/03/25 07:12
I&O
02/02/25 02/03/25 02/04/25
06:59 06:59 06:59
Intake Total 150 / 150
Balance 150 / 150
--- NOTE | 2025-02-03 11:48 | W.PN.PUL3 ---
Today's Communication / Plan
-
Continue azithromycin orally
Wean down FiO2
Incentive spirometry
Physical therapy as tolerated
Continue with cardiac management-atrial fibrillation not controlled.
Assessment
-
Assessment: 79-year-old female with a past medical history of GERD, anemia, iron deficiency, thyroid disease, hyperlipidemia, hypertension and anxiety who presents with head congestion, cough, diarrhea and reduced appetite for 2 days. She was
initially afebrile to 98.9 �F. Initial WBC 16.2, sodium 131, chloride 96, troponin 0.308, UA showed + ketones. Initial flu swab negative. Urine culture collected. Due to headache and balance issues, CT head obtained showing no acute intracranial
abnormality. She was also in new onset A-fib with RVR. She initially was admitted to the hospitalist service for rate control, given IVF, and stool studies were ordered. She had required supplemental oxygen initially at 2 L and then on 01/29 oxygen
requirements increased to 4 L/min. Due to her hypoxia, diarrhea and fevers, CT chest, abdomen/pelvis was done on 02/24/2025 showing bilateral pleural effusions, right perihilar opacity extending into the right upper lobe with right hilar and small
mediastinal lymphadenopathy � unable to rule out malignancy. Also a small pericardial effusion. Pulmonary service now consulted for additional recommendations.
Chronic conditions STRAW BOSS: GERD, anemia, iron deficiency, hypothyroidism, hyperlipidemia, hypertension, anxiety, arthritis
Impression:
#Acute hypoxic respiratory failure due to acute decompensated heart failure in the setting of suspected right perihilar pneumonia; unable to rule out malignancy
Positive Legionella pneumonia urine antigen 01/30/2025
#New onset A-fib with RVR
#Pneumonia - right perihilar region and possibly lower lobes, although lower lobes is likely compressive atelectasis and not an infection
#Small pericardial effusion seen on CT chest 01/28/2025
#Cholelithiasis
#Elevated troponin � likely due to demand ischemia with type II CT
#Febrile illness
#Diarrhea
#Hypothyroidism
Plan:
Clinical picture consistent with pneumonia.
From the pulmonary perspective overall improved.
Oxygenation remains at 4 L
Repeat chest x-ray 02/03/2025: Improving bilateral infiltrates. Minimal left pleural effusion.
Continue to follow leukocytosis.
She is afebrile.
-
Hypoxemic respiratory failure on 4 L supplemental oxygen. 2 L at rest. Not worsening.
Repeat home oxygen assessment closer to discharge.
- prn nebulized bronchodilators - not currently bronchospastic
- Incentive spirometer encouraged q1hr while awake
-
Last tutea-twc-rmxzz fever overnight-Tmax 100.2 ---02/01.
Legionella urine antibody + 01/30/2025
Normal LFT and renal function.
Pt report exposure to mice dropping at home few days prior getting sick.
-
Day #5 of ceftriaxone discontinued 02/01/2025.
Day #5/10 of azithromycin-transition to p.o. azithromycin 02/02/2025 and complete 14 days.
-
- CT chest/abdomen/pelvis on 01/28/2025 showing a right perihilar consolidative opacity and additional opacities in the right middle lobe + lingula, and bilateral pleural effusions with adjacent bibasilar consolidative opacities --> she will need a
repeat CT Chest in 4-6 weeks to assure that her right perihilar consolidation improves.
Repeat chest x-ray 02/03/2025: Reviewed, improving bilateral infiltrates. Tiny left pleural effusion.
- No recent prior imaging to compare.
Continue symptomatic management:
- Continue Tessalon Perles + prn codeine cough syrup due to bothersome coughing spells.
-
Rapid atrial fibrillation: Amiodarone started 02/02/2025-had an episode of rapid atrial fibrillation with heart rate into the 150s.
Heart rate is still not controlled 02/03/2025.
Echocardiogram 01/27/2025: Normal LVEF. Mild AR. Normal right ventricular size and function.
Not hypotensive
Cardiology following
Diuresis per cardiology discretion.
Continue to monitor diarrhea-intermittently; C. difficile testing was negativ; Campylobacter + Salmonella/Shigella cultures both negative
Benign abdominal exam.
c/o of throat and jaw pain 02/03/2025- Unclear etiology.
Headache has resolved since admission. Denies blurry vision.
?thrush
added nystatin- swish and spit. 02/03/2025
Defer further eval to primary team
Physical therapy and Occupational Therapy as tolerated.
- DVT ppx: Eliquis due to A-fib
Dr. Berry has updated walterer at bedside on daily basis.
Pulmonary service will continue to follow along. Outpatient pulmonary follow-up will also be arranged for full PFTs and symptom management/monitoring.
Data:
CT Chest/Abd/Pelvis 01/28/2025:
Bilateral lower lobe opacification with air bronchograms compatible with atelectasis and/or pneumonia with small bilateral pleural effusions.
Right perihilar opacification extending into the right upper lobe which may represent pneumonitis with accompanying small to moderate right hilar and small mediastinal lymph nodes. Unfortunately, malignancy centrally in the right hemithorax cannot
be excluded. Recommend short-term follow-up Chest CT.
Small pericardial effusion.
2.7 cm simple right lobe hepatic cyst.
Cholelithiasis. No findings to suggest biliary tract dilatation.
No right lower quadrant inflammatory changes, intestinal obstruction or free air.
Subjective Data
-
Date of Service:
Date of Service: February 03, 2025
Chief Complaint: Pulmonary Follow Up (Pneumonia)
Subjective:
No new pulmonary complaints
Oxygenation remains unchanged
Denies hemoptysis
Continues to feel fatigued
Review of Systems
General: Fever (n)
Cardiopulmonary: Dyspnea on Exertion (stable.)
GI: Abdominal Pain (n) and Nausea (n)
Objective Data
Data Reviewed
Vital Signs / I&O / Oxygen:
Vital Signs
Temp Pulse Resp BP Pulse Ox
97.5 F 142 22 114/83 93
02/03/25 11:16 02/03/25 08:33 02/03/25 11:16 02/03/25 08:33 02/03/25 11:16
Intake and Output
02/02/25 02/03/25 02/04/25
06:59 06:59 06:59
Intake Total 150 / 150
Balance 150 / 150
SaO2 93
Nasal Cannula flow liters per 4
minute
Physical Exam
General: Respiratory Distress (n) and Comfortable
HEENT: Normocephalic
Cardiovascular: S1-S2
Respiratory: Wheeze (n), Crackles (bases.) and Non-Labored Respirations
GI: Soft and Non Distended
Neurology: Awake, Oriented, AO x 3 and No Motor Deficits
Skin: Warm
Labs/Micro/Reports
Lab Data
02/03/25 04:28
02/03/25 05:27
Microbiology
02/02/25 11:41 Feces/Stool Salmonella/Shigella Culture - Preliminary
Culture in Progress
02/02/25 11:41 Feces/Stool Campylobacter Culture - Preliminary
Culture in Progress
02/02/25 11:41 Feces/Stool Stool Leukocytes - Final
02/02/25 11:41 Feces/Stool C. difficile GDH Antigen & Toxins - Final
Negative for toxigenic C.difficile
01/28/25 11:13 Blood/Venous Blood Culture - Final
No Growth - Final Report
02/01/25 04:37 Sputum Respiratory Culture - Final
02/01/25 04:37 Sputum Gram Stain - Final
01/30/25 01:28 Nose MRSA Screen - Final
No Methicillin Resistant Staphylococcus aureus isolated.
--- NOTE | 2025-02-03 12:39 | CM ---
Chart reviewed. Patient is independent of ADLS, lives alone in a 2 [address], 1st floor set up, 0 [address], recently has been ambulating with a SPC. PT evaluation recommending SNF. [facility]. Patient will need insurance
authorization. Patient's daughter prefers [facility] because it is closer for her to commute. Plan is for the patient to go to SNF when medically stable. CM to follow
[2025-02-03] MEDS: ZETIA 10 MG PO (12:51)
[2025-02-03] MEDS: VISBIOME 1 CAP PO (14:00)
--- NOTE | 2025-02-03 15:47 | W.PN.CD ---
Today's Communication / Plan
-
Move to PO Amio 400 bid, plan just 2-4 months of Amio
Watch tele carefully with Azithromycin + Amio
Will consider MCOT at discharge
Watch QTc (more so in NSR where it is more accurately measured)
May need to add back some rate control meds but hope to use only amio after a few days
Anticipate that she will not need mcfp Lasix, likely no Lasix at discharge, but could use 2-4 weeks until we know we have good control of AFib
Impression / Plan
-
Legionnaires' disease perhaps a unifying diagnosis
- CXR felt to be showing some improvement
- Still on O2 [address] findings, malignancy not ruled out
- Pulmonary plans repeat imaging in 4-6 weeks
Paroxysmal Afib - new onset in the ER, RVR.
- Had more AFib yesterday and today again with RVR => AMIO added (with azithromycin on board)
- monitor QTc given the need for Azithromycin
- May need to add back some rate control for short term
- On PO Eliquis
- [id number] at least 5 (age4, htN, suspected acute HF, gender)
- plan just 2-4 months of Amio
- Will consider MCOT at discharge (for tele with Azithromycin + Amio
- Watch QTc (more so in NSR where it is more accurately measured)
Suspected HFpEF
- Precipitated by rapid AFib and IV Fluids
- Decrease Lasix from IV BID to PO one time daily
- Lasix had been held for diarrhea but less so will resume Lasix
- Suspect no Lasix/KCl at discharge
Non-ischemic myocardial injury - acute in setting of new rapid Afib
- peak troponin 0.308
Mandibular pain:
-reproducible on exam c/w MSK etiology
HTN
HLD
Hypothyroidism
Anxiety
Subjective: feels so tired, no complaints of jaw pain to me
Echo : Normal LV/RV. Mild AR. Stable from 04/01/22.
CT chest/abdomen 01/28/2025:
Bilateral lower lobe opacification with air bronchograms compatible with atelectasis and/or pneumonia with small bilateral pleural effusions. Right perihilar opacification extending into the right upper lobe which may represent pneumonitis with
accompanying small to moderate right hilar and small mediastinal lymph nodes. Unfortunately, malignancy centrally in the right hemithorax cannot be excluded. Recommend short-term follow-up Chest CT. Small pericardial effusion. 2.7 cm simple right
lobe hepatic cyst. Cholelithiasis. No findings to suggest biliary tract dilatation. No right lower quadrant inflammatory changes, intestinal obstruction or free air.
Physical Exam
Vital Signs/Labs
Vital Signs
Temp Pulse Resp BP Pulse Ox
97.8 F 142 18 114/83 98
02/03/25 14:49 02/03/25 08:33 02/03/25 14:49 02/03/25 08:33 02/03/25 14:49
02/02/25 02/03/25 02/04/25
06:59 06:59 06:59
Actual Weight 68.9 kg 68.6 kg
02/03/25 04:28
02/03/25 05:27
APTT 42.3 Sec (23.4-35.0) H 01/28/25 14:54
Magnesium 2.1 mg/dl (1.6-2.3) 02/02/25 04:17
Physical Exam
Constitutional: No acute distress
EENT: Anicteric
Cardiovascular: Pedal edema is absent, Systolic murmur absent, Rhythm/rate is irregular and S1S2 is normal
Respiratory: Respiratory effort normal and Rhonchi Present
GI: Soft and Distention absent
Neuro/Psych: AO x 3
Data Reviewed
-
Date of Service: February 03, 2025
--- NOTE | 2025-02-03 19:13 | PTCARENOTE ---
~8923-1571: Handoff report received from nightshift RN. Pt Aox4, Afebrile, Afib on tele 100s-140s, 4L NC satting low to mid 90s, crackles noted in bases and ZACARIAS with frequent nonproductive cough. Pt Ax1 with walker to bathroom. Amio gtt infusing
into L forearem PIV. Bed alarm on for safety. Per cardiology, complete current amio bag and will start PO amio. Pt denies pain at this time. At 0847 patient converted back to NSR 90s. Daughter at bedside. All needs met at this time, callbell within
reach.
~7560-6470: Portable CXR obtained per order.
~1301-2190: daughter requesting probiotic be ordered for patient d/t diarrhea, Dr. Parada made aware. Pt remains in NSR with frequent PACs 90s-100s at this time. All needs met, call marques within reach.
~8814-2106: Family at bedside, patient resting in bed. Around 1514 patient back into Afib 130s-140s, asymptomatic. Per Dr. Tirado, he would like one EKG per day when patient is in NSR to closely monitor QTC interval. Blood cultures obtained per
order and throat culture obtained and sent to lab, results pending.
~4365-9034: Patient resting in bed. Apx4, Afib 130s-150s on tele. Pt denies pain at this time. Family at bedside. All needs met , call marques within reach. Handoff report given to nightshift RN.
--- NOTE | 2025-02-04 00:43 | PTCARENOTE ---
Received patient at change of shift. Afib on the monitor, HR in the 140s. 94% on 4L. Bed alarm in place. No complaints from pt at this time, call marques within reach.
[2025-02-04] MEDS: TYLENOL 1000 MG PO ×3 (03:12→20:03)
[2025-02-04 03:16] VITALS: BP 108/57
[2025-02-04 04:34] LABS: Hematocrit 41.1 % (37.0-47.0); Hemoglobin 13.9 g/dL (12.0-16.0); Mean Corp Hgb Conc. 33.8 g/dL (33.0-37.0); Mean Corpuscular Hgb 29.4 pg (27.0-31.0); Mean Corpuscular Volume 86.9 fL (81.0-99.0); Mean Platelet Volume 11.4 fL (7.4-10.4); Platelet Count 244 10^3/uL (130-400); Red Blood Cell Count 4.73 10^6/uL (4.20-5.40); Red Cell Dist. Width 15.2 % (11.5-14.5)
[2025-02-04 04:48] LABS: ALT (SGPT) 89 U/L (0-35); AST (SGOT) 73 U/L (14-36); Albumin 2.2 g/dl (3.5-5.0); Alkaline Phosphatase 237 U/L (38-126); Blood Urea Nitrogen 25 mg/dl (7-17); Calcium 8.3 mg/dl (8.4-10.2); Carbon Dioxide 26 mmol/L (22-30); Chloride 97 mmol/L (98-107); Direct Bilirubin 0.5 mg/dl (0.0-0.4); Estimated Creatinine Clearance 51 ml/min; Glucose 96 mg/dl (70-99); Magnesium 2.1 mg/dl (1.6-2.3); Potassium 4.6 mmol/L (3.5-5.1); Sodium 131 mmol/L (135-145); Total Bilirubin 0.9 mg/dl (0.2-1.3); Total Protein 5.4 g/dl (6.3-8.2); eGFR > 60.00
[2025-02-04 05:43] LABS: % Basophils 0.7 % (0-2); % Eosinophils 0.6 % (0-6); % Immature Granulocytes 6.4 % (0-0.5); % Lymphocytes 5.3 % (20.5-51.1); % Monocytes 2.6 % (1.7-9.3); % Neutrophils 84.4 % (42.2-75.2); Absolute Basophils 0.1 10^3/uL (0-0.2); Absolute Eosinophils 0.1 10^3/uL (0-0.7); Absolute Immature Granulocytes 1.2 10^3/uL (0-0.05); Absolute Monocytes 0.5 10^3/uL (0.1-0.6); Nucleated Red Blood Cells % 0 %
[2025-02-04] MEDS: SYNTHROID 88 MCG PO (06:04)
--- NOTE | 2025-02-04 07:55 | PTCARENOTE ---
Assumed care of pt from prev nsg shift; Pt AAOx3 w/no c/o CP. Pt assisted to BR & appeared mildly dyspneic on exertion. Pt appears very deconditioned; assisted OOB to CH. Pt's VSS w/HR in the 100's-130's, w/MD aware, & BP 96/69 this AM. Pt is Afib
w/RVR on telemetry monitoring w/brief periods of SR/ST. Pt w/call marques within reach & no addtl needs at this time. Plan of care ongoing.
[2025-02-04 09:13] VITALS: BP 96/69
[2025-02-04 09:41] VITALS: BMI 26.0
--- NOTE | 2025-02-04 09:53 | W.PN.PUL3 ---
Today's Communication / Plan
-
- Continue azithromycin. Recommend a minimum of 10 days of antimicrobial therapy for Legionella
- Monitor QTc. 477 this morning while on amiodarone and azithromycin
Assessment
-
Assessment: 79-year-old female with a past medical history of GERD, anemia, iron deficiency, thyroid disease, hyperlipidemia, hypertension and anxiety who presents with head congestion, cough, diarrhea and reduced appetite for 2 days. She was
initially afebrile to 98.9 �F. Initial WBC 16.2, sodium 131, chloride 96, troponin 0.308, UA showed + ketones. Initial flu swab negative. Urine culture collected. Due to headache and balance issues, CT head obtained showing no acute intracranial
abnormality. She was also in new onset A-fib with RVR. She initially was admitted to the hospitalist service for rate control, given IVF, and stool studies were ordered. She had required supplemental oxygen initially at 2 L and then on 01/29 oxygen
requirements increased to 4 L/min. Due to her hypoxia, diarrhea and fevers, CT chest, abdomen/pelvis was done on 02/24/2025 showing bilateral pleural effusions, right perihilar opacity extending into the right upper lobe with right hilar and small
mediastinal lymphadenopathy � unable to rule out malignancy. Also a small pericardial effusion. Pulmonary service now consulted for additional recommendations.
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
02/04. WBC count elevated at 19, essentially unchanged from yesterday. Afebrile now. Last temperature was 100.2 on 02/01.
Impression:
#Acute hypoxic respiratory failure due to acute decompensated heart failure in the setting of suspected right perihilar pneumonia; unable to rule out malignancy
Positive Legionella pneumonia urine antigen 01/30/2025
#New onset A-fib with RVR
#Pneumonia - right perihilar region and possibly lower lobes, although lower lobes is likely compressive atelectasis and not an infection
#Small pericardial effusion seen on CT chest 01/28/2025
#Cholelithiasis
#Elevated troponin � likely due to demand ischemia with type II MN
#Febrile illness
#Diarrhea
#Hypothyroidism
Plan:
Clinical picture consistent with pneumonia, Legionella urine antigen+ 01/30/2025
From the pulmonary perspective overall improved.
Oxygenation remains at 4 L
Repeat chest x-ray 02/03/2025: Improving bilateral infiltrates. Minimal left pleural effusion.
Continue Azithromycin 500 mg daily. Currently scheduled for a total of 2 weeks of antibiotics. Patient already completed 5 days of ceftriaxone.
Incentive spirometer encouraged q1hr while awake
Normal LFT and renal function.
Pt report exposure to mice dropping at home few days prior getting sick.
CT chest/abdomen/pelvis on 01/28/2025 showing a right perihilar consolidative opacity and additional opacities in the right middle lobe + lingula, and bilateral pleural effusions with adjacent bibasilar consolidative opacities --> she will need a
repeat CT Chest in 4-6 weeks to assure that her right perihilar consolidation improves. Outpatient follow-up with Dr. Howell
Continue symptomatic management:
- Continue Tessalon Perles + prn codeine cough syrup due to bothersome coughing spells.
Rapid atrial fibrillation: Amiodarone started 02/02/2025-had an episode of rapid atrial fibrillation with heart rate into the 150s.
Currently on p.o. amiodarone and Eliquis
Echocardiogram 01/27/2025: Normal LVEF. Mild AR. Normal right ventricular size and function.
Not hypotensive
Cardiology following
Continue to monitor diarrhea-intermittently; C. difficile testing was negative; Campylobacter + Salmonella/Shigella cultures both negative
Benign abdominal exam.
Physical therapy and Occupational Therapy as tolerated.
- DVT ppx: Eliquis due to A-fib
Pulmonary service will continue to follow along. Outpatient pulmonary follow-up will also be arranged for full PFTs and symptom management/monitoring.
Data:
CT Chest/Abd/Pelvis 01/28/2025:
Bilateral lower lobe opacification with air bronchograms compatible with atelectasis and/or pneumonia with small bilateral pleural effusions.
Right perihilar opacification extending into the right upper lobe which may represent pneumonitis with accompanying small to moderate right hilar and small mediastinal lymph nodes. Unfortunately, malignancy centrally in the right hemithorax cannot
be excluded. Recommend short-term follow-up Chest CT.
Small pericardial effusion.
2.7 cm simple right lobe hepatic cyst.
Cholelithiasis. No findings to suggest biliary tract dilatation.
No right lower quadrant inflammatory changes, intestinal obstruction or free air.
Subjective Data
-
Date of Service:
Date of Service: February 04, 2025
Chief Complaint: Pulmonary Follow Up (Pneumonia)
Subjective:
Patient comfortably sitting in chair, gradually improving from respiratory standpoint
Review of Systems
Genitourinary: Other (Mild cough, nonproductive today. Had mild clear expectoration yesterday.)
Objective Data
Data Reviewed
Vital Signs / I&O / Oxygen:
Vital Signs
Temp Pulse Resp BP Pulse Ox
96.1 F L 100 20 96/69 97
02/04/25 09:23 02/04/25 09:23 02/04/25 09:23 02/04/25 09:13 02/04/25 09:23
Intake and Output
02/03/25 02/04/25 02/05/25
06:59 06:59 06:59
Intake Total 150 / 150
Balance 150 / 150
SaO2 97
Nasal Cannula flow liters per 4
minute
Physical Exam
General: Respiratory Distress (none) and Comfortable
HEENT: Normocephalic
Cardiovascular: S1-S2
Respiratory: Clear, Crackles (Few basilar inspiratory crackles posteriorly.) and Non-Labored Respirations
GI: Soft and Non Distended
Neurology: Awake, Alert and Oriented
Skin: Warm
Labs/Micro/Reports
Lab Data
02/04/25 03:28
02/04/25 03:28
Microbiology
02/03/25 16:04 Throat/Pharynx Throat Culture - Preliminary
Usual Respiratory Lisa
02/02/25 11:41 Feces/Stool Salmonella/Shigella Culture - Preliminary
Culture in Progress
02/02/25 11:41 Feces/Stool Campylobacter Culture - Preliminary
Culture in Progress
02/02/25 11:41 Feces/Stool Stool Leukocytes - Final
02/02/25 11:41 Feces/Stool C. difficile GDH Antigen & Toxins - Final
Negative for toxigenic C.difficile
01/28/25 11:13 Blood/Venous Blood Culture - Final
No Growth - Final Report
02/01/25 04:37 Sputum Respiratory Culture - Final
02/01/25 04:37 Sputum Gram Stain - Final
[2025-02-04] MEDS: ELIQUIS 5 MG PO ×2 (09:55→20:04)
[2025-02-04] MEDS: PACERONE 400 MG PO ×2 (09:55→20:04)
[2025-02-04] MEDS: ZITHROMAX 500 MG PO (09:55)
[2025-02-04] MEDS: LIDOCAINE 4% PATCH 1 PATCH TOPICAL (09:55)
[2025-02-04] MEDS: KCL ELIXIR 40 MEQ PO (09:56)
[2025-02-04] MEDS: ZOLOFT 50 MG PO (09:56)
[2025-02-04] MEDS: MYCOSTATIN ORAL SUSPENSION 5 ML PO ×4 (09:56→21:52)
[2025-02-04] MEDS: PEPCID 20 MG PO (09:56)
[2025-02-04] MEDS: VISBIOME 1 CAP PO (09:56)
[2025-02-04] MEDS: LASIX 40 MG PO (09:56)
--- NOTE | 2025-02-04 09:59 | W.PN.CD ---
Today's Communication / Plan
-
continue PO amiodarone and eliquis
trend tele
Impression / Plan
-
Legionnaires' disease perhaps a unifying diagnosis
- per primary team and ID
Abnormal CT findings, malignancy not ruled out
- Pulmonary plans repeat imaging in 4-6 weeks
Paroxysmal Afib - new diagnosis with RVR.
- Had more AFib with RVR => AMIO added (with azithromycin on board) 02/02
- monitor QTc given the need for Azithromycin: stable today under 500 msec in sinus
- On PO Eliquis 5mg bid
- [id number] at least 5 (age4, htN, suspected acute HF, gender)
- plan just 2-4 months of Amio
- Will consider MCOT at discharge (for tele with Azithromycin + Amio)
- Watch QTc (more so in NSR where it is more accurately measured)
Suspected HFpEF: stable
- Precipitated by rapid AFib and IV Fluids
- Decreased Lasix from IV BID to PO one time daily: 40mg daily
- Suspect no Lasix/KCl at discharge
Acute Non-ischemic myocardial injury - acute in setting of new rapid Afib
- peak troponin 0.308
Mandibular pain:
-reproducible on exam c/w MSK etiology
HTN
HLD
Hypothyroidism
Anxiety
Echo : Normal LV/RV. Mild AR. Stable from 04/01/22.
CT chest/abdomen 01/28/2025:
Bilateral lower lobe opacification with air bronchograms compatible with atelectasis and/or pneumonia with small bilateral pleural effusions. Right perihilar opacification extending into the right upper lobe which may represent pneumonitis with
accompanying small to moderate right hilar and small mediastinal lymph nodes. Unfortunately, malignancy centrally in the right hemithorax cannot be excluded. Recommend short-term follow-up Chest CT. Small pericardial effusion. 2.7 cm simple right
lobe hepatic cyst. Cholelithiasis. No findings to suggest biliary tract dilatation. No right lower quadrant inflammatory changes, intestinal obstruction or free air.
Physical Exam
Vital Signs/Labs
Vital Signs
Temp Pulse Resp BP Pulse Ox
96.1 F L 100 20 96/69 97
02/04/25 09:23 02/04/25 09:23 02/04/25 09:23 02/04/25 09:13 02/04/25 09:23
02/03/25 02/04/25 02/05/25
06:59 06:59 06:59
Actual Weight 68.6 kg 68.6 kg
02/04/25 03:28
02/04/25 03:28
APTT 42.3 Sec (23.4-35.0) H 01/28/25 14:54
Magnesium 2.1 mg/dl (1.6-2.3) 02/04/25 03:28
Physical Exam
Constitutional: No acute distress
EENT: Moist mucous membranes
Cardiovascular: Rhythm & rate is regular, Pedal edema is absent, JVD pressure is normal and Systolic murmur absent
Respiratory: Respiratory effort normal
Neuro/Psych: AO x 3
Data Reviewed
-
Date of Service: February 04, 2025
EKG: Other (Tele: A fib-->SR 90s)
Labs: Labs Reviewed by me
--- NOTE | 2025-02-04 10:32 | W.PN.HOSP.TC ---
Today's Communication/Plan
-
Right ankle swelling -- empiric Colchicine -- 1x dose for now only given significant med interactions which can increase risk for Colchicine toxicity
Continue Azithromycin
Continue Amiodarone and Eliquis
Continue to monitor in IVU
Assessment / Plan
Assessment / Plan
Physical Exam
General: Not in acute distress
HEENT: Normocephalic, Atraumatic. Oropharynx with mild erythema.
Respiratory: basal rales right side > left side, no wheezes.
Cardiac: S1/S2. Tachycardia.
GI: Soft and Non Tender. Positive bowel sounds.
Musculoskeletal: No Cyanosis. Right ankle pain, swelling, no significant erythema (perhaps faint erythema), right ankle restricted motion due to pain, pulses good
Skin: Warm and Dry
Neuro: Awake, Alert, Oriented and Nonfocal/grossly intact
Psych: Calm
Assessment/Plan
79 y/o female with past medical history of hypertension, hypothyroidism and anxiety who presented with headache, fever, new onset atrial fibrillation, dizziness and diarrhea.
#Legionnaires' disease
#Presented with Fever, diarrhea, leukocytosis, fever , she is meeting criteria of sepsis POA, on admission source was GI
#Fever -- last fever temperature was 101.7 F on 01/30/25 evening
- Can explain fever, pneumonia, confusion, diarrhea
- Still having diarrhea, suspected from antibiotics, repeat stool studies unremarkable
- Still with temperature 100.2 F on February 01, 2025 morning -- temperatures okay since then
- Urine + for Legionella pneumophila => IV Azithromycin 500 mg daily added on January 30, 2025 to Rocephin
- Completed 5 days or Rocephin --> discontinued Rocephin on 02/02/25
- Transition to PO (from IV) Azithromycin 500 mg daily -- continue Azithromycin 500 mg PO daily
- Total duration of Azithromycin 14 days: continue through February 12, 2025
- Pulmonary involved, appreciate their evaluation and recommendations
- Given tachycardia and high Pneumonia Severity Index --> ordered repeat blood cultures x2
#New-Onset Atrial Fibrillation with Rapid Ventricular Response. Patient was not taking Toprol XL for a few days prior to arrival
-AFib RVR again overnight 02/01-02/02
-Continue Amiodarone (for 2 to 4 months) -- monitor QTc daily given that patient is on Azithromycin -- QTc currently in acceptable range
-Diltiazem and Metoprolol also stopped
-[id number] around 4 for age, sex, HTN, status post IV Heparin Drip
-Continue Eliquis 5 mg BID
-Echo 01/27/25 showed LVEF 60-65%, Mild AI.
-Consulted Cardiology, help appreciated.
-Cardiology will consider [facility] at discharge (for tele with Azithromycin + Amio)
#c/o of throat and jaw pain - Unclear etiology - IMPROVING
-?thrush
-Headache has resolved since admission. Denies blurry vision.
-Continue Nystatin - swish and spit -- improving with this
-Checked throat culture -- usual gurdeep -- continue to follow
#Right Ankle Inflammation (Swelling, Erythema and Pain) overnight 02/03/25 to 02/04/25
-Ideally need joint fluid for aspiration and studies (e.g. cell count & differential, culture, crystals) -- a little fluid was aspirated on 02/04/25 (see ortho note) but not enough fluid was able to be drained for these lab studies
-No bacteremia to date. Legionella septic joint or bacterial infected joint less likely.
-Can consider empiric Colchicine -- just to cover any possible crystalline arthropathy -- it will not skew the results of any possible fluid analysis from the right ankle joint -- will try to avoid steroids and NSAIDs given patient's current
comorbid conditions -- spoke over the phone on 02/04/25 with on-call bus driver school who is onboard with this plan
-As per my [place] [facility] communication on 02/04/[address] Justin Pavon of orthopedics: per Dr. Pavon, we can hold off on antibiotics; there was minimal right ankle swelling, clearly very limited fluid that was able to be aspirated, and no
erythema so infection is unlikely; okay to treat empirically
-Colchicine 0.6 mg given on 02/04/25 -- has interactions with recently given Diltiazem, Amiodarone and Azithromycin (can increase levels of and toxicity from Colchicine) -- per med interactions monograph section, can consider giving next dose of
Colchicine no earlier than 02/07/25 evening (in 3 days, for gout flare) --> if another dose is given, consider giving 0.3 mg no earlier than 02/07/25 evening
-Monitor closely for any signs or symptoms of Colchicine toxicity (also have to make sure kidney function okay, and AST ALT are also mildly elevated as of February 04, 2025)
# Acute hypoxic respiratory failure
Still requiring oxygen
CT Chest noted
Not a smoker.
Appreciate pulmonary help
Home O2 assessment to be done closer to discharge
Continue Incentive Spirometer
#Suspected Acute on Chronic HFpEF suspected from A-Fib and Volume Resuscitation
-Possible from IV fluids and also has had rapid A-Fib
-Stopped IV Lasix as of 02/01/25
-Stop Lasix 40 mg PO one time a day given diarrhea and slight hypovolemia
-Decrease KCl and likely no Lasix/KCl will be needed at discharge
#Hypokalemia
-Monitor and replace potassium
#Elevated Troponin, suspect non-ischemic myocardial injury in setting of rapid a-fib
-Continue to trend troponin
-Checked Echocardiogram, no regional wall motion abnormalities, no chest pain
Troponin trending down
# TME
Resolved
Had a fall this hospitalization, requested bed alarm. She seems back to baseline today, fully oriented.
# Small bilateral pleural effusion, with acute pulmonary edema ( non cardiogenic).
-Hold Lasix for now as above
# Non-ischemic myocardial injury - acute in setting of new rapid Afib, peak troponin 0.308
# Hyperhidrosis
-Hold home Glycopyrrolate for now given anticholinergic effects which could have contributed to patient's symptoms
-Patient's daughter did mention that patient is sweating more, but patient does have chronic sweating more
#Hyponatremia, mildly likely hypovolemic in nature
-Resolved with IVF
#Essential Hypertension
-Continue current medications
#Hyperlipidemia
-Continue Zetia
#Post-Surgical Hypothyroidism
-Continue levothyroxine
#Abnormal CT findings, malignancy not ruled out
-Patient will need a repeat CT Chest in 4-6 weeks to assure that her right perihilar consolidation improves
#Anxiety
-Continue Zoloft
DVT Prophylaxis: Eliquis
Code Status: Full Code
On February 03, 2025, I spoke with patient's daughter and answered all her questions and concerns to satisfaction.
Anticipated Discharge: > 48 hours
Subjective/Interval History
-
Date of Service: February 04, 2025
Patient was seen and examined. She reported right ankle swollen and painful, no trauma that she knows of.
Objective Data
-
Labs:
Laboratory Results
02/04/25
03:28
WBC 19.0 H
Hgb 13.9
Hct 41.1
Plt Count 244 D
Sodium 131 L
Potassium 4.6
Chloride 97 L
Carbon Dioxide 26
BUN 25 H
Creatinine 0.8
Glucose 96
Calcium 8.3 L
Total Bilirubin 0.9
AST 73 H
ALT 89 H
Alkaline Phosphatase 237 H
Vital Signs:
Vital Signs
Temp Pulse Resp BP Pulse Ox
96.1 F L 100 20 96/69 97
02/04/25 09:23 02/04/25 09:23 02/04/25 09:23 02/04/25 09:13 02/04/25 09:23
I&O
02/03/25 02/04/25 02/05/25
06:59 06:59 06:59
Intake Total 150 / 150
Balance 150 / 150
[2025-02-04 11:42] VITALS: BP 121/73
[2025-02-04] MEDS: ZETIA 10 MG PO (13:43)
--- NOTE | 2025-02-04 14:27 | CON.ORTHO ---
Addendum entered and electronically signed by Justin Pavon MD 02/04/25 22:20:
Volume of aspirate was too low for analysis. Given lack of erythema, minimal swelling and effusion, there is low likelihood of septic arthritis. Recommend to proceed with empiric treatment for gout. Orthopaedics to see tomorrow for clinical
re-evaluation.
Original Note:
Consultation
-
Date/Time Consultation Requested: [id number] 11:53
Date/Time Consultation Performed: [id number] 14:00
Requesting Provider: Dusty Parada
Performing Provider: Justin Pavon MD
Reason for Consultation: right ankle pain and swelling
Consultation - Orthopedics
History
Ms Rooney is a 79F with PMH HTN, hypothyroid, acute on chronic HFpEF, with new onset AFib with RVR, Legionairre's disease complaining of atraumatic onset of right nakle pain of one day's duration .She states she went to the bathroom in the middle of
the night and noticed some pabn, without any fall, slip, or other injury. The pain persisted this day, and was accompanied with mild swelling. Due to her hospitalization and multiple comorbidities there is a concern for possible aseptic arthritis of
her ankle. She denies any prior injury or surgery to her right ankle. She states she had a left TKA performed many years ago, and that was uncomplicated. She denies numbness or tingling in her RLE, denies other musculoskeletal complaints at this
time. She denies any history of gout or other inflammatory disease.
Allergies / Home Medications
Allergy/AdvReac Type Severity Reaction Status Date / Time
lisinopril Allergy Unknown Verified 01/26/25 20:20
�Medication �Instructions �Recorded
Viviscal 1 tab PO BID Supplement 01/26/25
calcium carbonate 500 mg PO DAILY Supplement 01/26/25
ezetimibe 10 mg tablet (Zetia) 10 mg PO DAILY@1200 High 01/26/25
Cholesterol
glycopyrrolate 1 mg tablet 1 mg PO BID Hyperhidrosis, primary 01/26/25
fo
levothyroxine 88 mcg tablet 88 mcg PO DAILY Thyroid 01/26/25
(Synthroid)
metoprolol succinate 50 mg 50 mg PO DAILY Blood Pressure 01/26/25
tablet,extended release 24 hr
(Toprol XL)
omeprazole 20 mg tablet,delayed 20 mg PO DAILY Gastrointestinal 01/26/25
release Issue
sertraline 50 mg tablet 50 mg PO DAILY Mental 01/26/25
Health/Anxiety
vitamins A,C,S-phnz-tmidmf 2,148 1 tab PO BID Supplement 01/26/25
mcg-113 mg-45 mg-17.4 mg tablet
(PreserVision AREDS)
ipratropium bromide 21 mcg (0.03 2 spray intranasal BID 01/27/25
%) nasal spray
Vital Signs / Lab Results
Temp Pulse Resp BP Pulse Ox
97.3 F 80 20 121/73 95
02/04/25 11:42 02/04/25 13:00 02/04/25 11:42 02/04/25 11:42 02/04/25 11:42
02/04/25 03:28
02/04/25 03:28
Physical examination:
Resting comfortably in bed, AAOx3
No pitting edema
No ecchymosis or erythema
Mild swelling about lateral aspect of ankle
TTP ankle joint line, no TTP malleoli
Active dorsiflexion to 10 degrees, pain limited; passive dorsiflexion to 30 degrees with pain
sensation intact in all dermatomes
Palpable DP and PT pulses, brisk capillary refill
XR right ankle: negative for fracture, dislocation, or other acute osseous abnormality
Assessment / Plan
Ms Rooney is a 79F with right ankle pain and swelling. In order to rule out septic arthritis, an aspiration was performed. She tolerated the procedure well. Approximately 0.5ml of sanguinous fluid was obtained, and this was sent to the lab for fluid
and crystal analysis and culture. If there is not enough sample, we would choose to prioritize cell count and crystal analysis. In speaking with the medicine team, they would like to empirically start colchicine and vancomycin until fluid analysis
results are available. The patient will be made NPO at midnight for possible irrigation and debridement of the right ankle in the OR tomorrow if cultures or lab values are positive. Orhtopaedics will follow the labs and sign off if no infection is
detected.
[2025-02-04 16:50] VITALS: BP 121/70
[2025-02-04] MEDS: COLCHICINE 0.6 MG PO (18:22)
--- NOTE | 2025-02-04 20:00 | PTCARENOTE ---
received pt from previous rn. pt AA0x4, VSS, NSR per tele monitor HR 80s. trace l/e edema. lungs diminished pox 96% on 4L NC. pt c/o pain in lower extremities. See NOV. +bs. pt void appropriately in bedside commode. skin intact. piv intact. plan of
care discussed questions encouraged. call marques within reach.
[2025-02-04 20:45] VITALS: BP 114/64
[2025-02-04 22:21] VITALS: BP 122/62
[2025-02-05] MEDS: TYLENOL 1000 MG PO ×3 (02:19→21:47)
[2025-02-05 03:54] VITALS: BP 128/73
[2025-02-05 04:42] LABS: Hematocrit 36.6 % (37.0-47.0); Hemoglobin 12.5 g/dL (12.0-16.0); Mean Corp Hgb Conc. 34.2 g/dL (33.0-37.0); Mean Corpuscular Hgb 29.4 pg (27.0-31.0); Mean Corpuscular Volume 86.1 fL (81.0-99.0); Mean Platelet Volume 10.5 fL (7.4-10.4); Platelet Count 226 10^3/uL (130-400); Red Blood Cell Count 4.25 10^6/uL (4.20-5.40); Red Cell Dist. Width 15.2 % (11.5-14.5); White Blood Cell Count 19.2 10^3/uL (4.8-10.8)
[2025-02-05 04:54] LABS: ALT (SGPT) 69 U/L (0-35); AST (SGOT) 54 U/L (14-36); Albumin 2.1 g/dl (3.5-5.0); Alkaline Phosphatase 219 U/L (38-126); Blood Urea Nitrogen 30 mg/dl (7-17); Calcium 8.4 mg/dl (8.4-10.2); Carbon Dioxide 25 mmol/L (22-30); Chloride 101 mmol/L (98-107); Estimated Creatinine Clearance 45 ml/min; Glucose 103 mg/dl (70-99); Potassium 4.9 mmol/L (3.5-5.1); Sodium 132 mmol/L (135-145); Total Bilirubin 0.7 mg/dl (0.2-1.3); Total Protein 5.3 g/dl (6.3-8.2); eGFR > 60.00
[2025-02-05 05:01] LABS: NT-proBNP 848 pg/ml
[2025-02-05] MEDS: SYNTHROID 88 MCG PO (05:27)
[2025-02-05 05:28] VITALS: BMI 26.3
--- NOTE | 2025-02-05 06:01 | PTCARENOTE ---
bed scale weight obtained d/t pt c/o increasing b/l ankle pain. unable to bear weight w/o assist of 2 people.
[2025-02-05 06:56] LABS: % Basophils 0.5 % (0-2); % Eosinophils 0.8 % (0-6); % Immature Granulocytes 6.9 % (0-0.5); % Lymphocytes 5.3 % (20.5-51.1); % Monocytes 3.2 % (1.7-9.3); % Neutrophils 83.3 % (42.2-75.2); Absolute Basophils 0.1 10^3/uL (0-0.2); Absolute Eosinophils 0.2 10^3/uL (0-0.7); Absolute Immature Granulocytes 1.3 10^3/uL (0-0.05); Absolute Monocytes 0.6 10^3/uL (0.1-0.6); Nucleated Red Blood Cells % 0 %
[2025-02-05 07:13] VITALS: BP 130/69
[2025-02-05 07:15] VITALS: BMI 25.7
--- NOTE | 2025-02-05 07:50 | PTCARENOTE ---
Assumed care of pt from prev nsg shift; Pt AAOx3 w/no c/o CP or SOB. Pt assisted OOB to BSC & then to CH. Pt's mobility somewhat improved overnight & pt reports 'having less pain in her bilat ankles'. Pt's R lateral ankle & L ankle appear less
swollen & less tender than prev assessment. Pt's VSS w/HR in the 70's & BP 130/69 this AM. Pt is SR on telemetry monitoring w/brief period of Afib this morning. Pt w/call marques within reach & no addtl needs at this time. Plan of care ongoing.
--- NOTE | 2025-02-05 08:01 | W.PN.UPDATE ---
Update Note
Progress Note Update
Ms. Baumann is resting comfortably in her chair this morning. She was seen by Dr. Pavon yesterday for right ankle pain and swelling, and he suspected an acute gout flare. Unfortunately, he was not able to aspirate enough from the ankle for testing.
She was placed on colchicine. She reports her symptoms have improved significantly overnight. She continues with some aching pain, but states she is able to perform some ROM and bear weight.
Directed exam of the right ankle reveals mild edema, no erythema, ecchymosis or lesions. Mild tenderness along the anterior ankle joint. Painless ROM of the ankle. Neurovascularly intact.
Ms. Baumann has experienced significant improvement in her ankle symptoms overnight. No signs concerning for infection today. Continue empiric tx for gout. Patient may be WBAT and perform ROM to tolerance. She may benefit from PT/OT while admitted.
Orthopedics will sign off for now. We would be happy to see her on an outpatient basis if needed. Recommended follow up with PCP/rheum as well to discuss continued gout management.
--- NOTE | 2025-02-05 09:30 | W.PN.CD ---
Today's Communication / Plan
-
continue PO amiodarone
Impression / Plan
-
Legionnaires' disease perhaps a unifying diagnosis
- per primary team and ID
Abnormal CT findings, malignancy not ruled out
- Pulmonary plans repeat imaging in 4-6 weeks
Paroxysmal Afib - new diagnosis with RVR.
- Had more AFib with RVR => AMIO added (with azithromycin on board) 02/02
- monitor QTc given the need for Azithromycin: stable today under 500 msec in sinus
- On PO Eliquis 5mg bid
- [id number] at least 5 (age4, htN, suspected acute HF, gender)
- plan just 2-4 months of Amio
- Will consider [facility] at discharge (for tele with Azithromycin + Amio)
- Watch QTc (more so in NSR where it is more accurately measured): stable under 500 msec
Suspected HFpEF: stable
- Precipitated by rapid AFib and IV Fluids
- Decreased Lasix from IV BID to PO one time daily: 40mg daily
- Suspect no Lasix/KCl at discharge
Acute Non-ischemic myocardial injury - acute in setting of new rapid Afib
- peak troponin 0.308
Mandibular pain:
-reproducible on exam c/w MSK etiology
HTN
HLD
Hypothyroidism
Anxiety
Echo : Normal LV/RV. Mild AR. Stable from 04/01/22.
CT chest/abdomen 01/28/2025:
Bilateral lower lobe opacification with air bronchograms compatible with atelectasis and/or pneumonia with small bilateral pleural effusions. Right perihilar opacification extending into the right upper lobe which may represent pneumonitis with
accompanying small to moderate right hilar and small mediastinal lymph nodes. Unfortunately, malignancy centrally in the right hemithorax cannot be excluded. Recommend short-term follow-up Chest CT. Small pericardial effusion. 2.7 cm simple right
lobe hepatic cyst. Cholelithiasis. No findings to suggest biliary tract dilatation. No right lower quadrant inflammatory changes, intestinal obstruction or free air.
Physical Exam
Vital Signs/Labs
Vital Signs
Temp Pulse Resp BP Pulse Ox
97.4 F 80 20 130/69 97
02/05/25 07:14 02/05/25 08:00 02/05/25 07:14 02/05/25 07:13 02/05/25 07:14
02/04/25 02/05/25 02/06/25
06:59 06:59 06:59
Actual Weight 69.5 kg 67.8 kg
02/05/25 03:53
02/05/25 03:53
APTT 42.3 Sec (23.4-35.0) H 01/28/25 14:54
Magnesium 2.1 mg/dl (1.6-2.3) 02/04/25 03:28
02/05/25
03:53
[id number] Pept 848
Physical Exam
Constitutional: No acute distress and Comfortable
EENT: Moist mucous membranes
Cardiovascular: Rhythm & rate is regular, Pedal edema is absent, JVD pressure is normal and Systolic murmur absent
Respiratory: Respiratory effort normal
Neuro/Psych: AO x 3
Data Reviewed
-
Date of Service: February 05, 2025
EKG: Other (Tele: brief A fib O/N, now sinus)
Labs: Labs Reviewed by me
[2025-02-05] MEDS: ZITHROMAX 500 MG PO (10:28)
[2025-02-05] MEDS: VISBIOME 1 CAP PO (10:29)
[2025-02-05] MEDS: KCL ELIXIR 40 MEQ PO (10:29)
[2025-02-05] MEDS: LASIX 40 MG PO (10:29)
[2025-02-05] MEDS: LIDOCAINE 4% PATCH 1 PATCH TOPICAL (10:29)
[2025-02-05] MEDS: ZOLOFT 50 MG PO (10:29)
[2025-02-05] MEDS: MYCOSTATIN ORAL SUSPENSION PO (10:29)
[2025-02-05] MEDS: PACERONE 400 MG PO ×2 (10:30→19:33)
[2025-02-05] MEDS: ELIQUIS 5 MG PO ×2 (10:30→19:33)
[2025-02-05] MEDS: FLUSH (NSS) 1 FLUSH IV (10:30)
[2025-02-05] MEDS: PEPCID 20 MG PO (10:30)
--- NOTE | 2025-02-05 11:41 | W.PN.HOSP.TC ---
Today's Communication/Plan
-
Continue Amiodarone
Patient will need [facility]OT telemetry monitor outpatient to monitor QTc given Azithromycin and Amiodarone
Spoke with daughter extensively today
SNF placement pending
Assessment / Plan
Assessment / Plan
Physical Exam
General: Not in acute distress
HEENT: Normocephalic, Atraumatic. Oropharynx with mild erythema.
Respiratory: basal rales right side > left side, no wheezes.
Cardiac: S1/S2. Tachycardia.
GI: Soft and Non Tender. Positive bowel sounds.
Musculoskeletal: No Cyanosis. Right ankle pain, swelling, and ROM (SIGNIFICANTLY IMPROVED TODAY). RLE distal pulses and capillary refill intact.
Skin: Warm and Dry
Neuro: Awake, Alert, Oriented and Nonfocal/grossly intact
Psych: Calm
Assessment/Plan
79 y/o female with past medical history of hypertension, hypothyroidism and anxiety who presented with headache, fever, new onset atrial fibrillation, dizziness and diarrhea.
#Legionnaires' disease
#Presented with Fever, diarrhea, leukocytosis, fever , she is meeting criteria of sepsis POA, on admission source was GI
#Fever -- last fever temperature was 101.7 F on 01/30/25 evening
- Legionnaire's Disease can explain fever, pneumonia, confusion, diarrhea
- Still having diarrhea, suspected from antibiotics, repeat stool studies unremarkable
- Still with temperature 100.2 F on February 01, 2025 morning -- and one episode of hypothermia on February 04, 2025 -- temperatures okay since then
- Urine + for Legionella pneumophila => IV Azithromycin 500 mg daily added on January 30, 2025
- Completed 5 days of Rocephin --> discontinued Rocephin on 02/02/25
- Transition to PO (from IV) Azithromycin 500 mg daily -- continue Azithromycin 500 mg PO daily
- Total duration of Azithromycin 14 days: continue through February 12, 2025
- Pulmonary involved, appreciate their evaluation and recommendations
- Given tachycardia and high Pneumonia Severity Index+persistent leukocytosis --> ordered 02/03/25 repeat blood cultures x2 --> no growth to date
#New-Onset Atrial Fibrillation with Rapid Ventricular Response. Patient was not taking Toprol XL for a few days prior to arrival
-AFib RVR again overnight 02/01-02/02
-Continue Amiodarone (for 2 to 4 months) -- monitor QTc daily given that patient is also on Azithromycin -- QTc currently in acceptable range
-Diltiazem and Metoprolol previously stopped
-[id number] elevated
-Continue Eliquis 5 mg BID
-Echo 01/27/25 showed LVEF 60-65%, Mild AI.
-Consulted Cardiology, help appreciated.
-Cardiology will consider [facility] at discharge (for tele with Azithromycin + Amio)
#c/o of throat and jaw pain - Unclear etiology - IMPROVING
-?thrush
-Headache has resolved since admission. Denies blurry vision.
-Continue Nystatin - swish and spit -- improving with this -- patient reported 'throat coating' sensation still -- may need inpatient vs. outpatient ENT consult
-Checked throat culture -- usual gurdeep -- continue to follow to final result
#Intermittent right ear clogged then left
-Outpatient vs. Inpatient ENT
#Right Ankle Inflammation (Swelling, Erythema and Pain) overnight 02/03/25 to 02/04/25
-Ideally need joint fluid for aspiration and studies (e.g. cell count & differential, culture, crystals) -- a little fluid was aspirated on 02/04/25 (see ortho note from 02/04 and 02/05) but not enough fluid was able to be drained
for these lab studies
-No bacteremia to date. Legionella septic joint or bacterial infected joint less likely especially given symptoms improved with Colchicine.
-Provided empiric Colchicine 0.6 mg on 02/04/25 -- just to cover any possible crystalline arthropathy -- will try to avoid steroids and NSAIDs given patient's current comorbid conditions -- spoke over the phone on 02/04/25
with on- call recycling specialist for any further suggestions, and she is onboard with this plan
-Symptoms now improving after that 1 Colchicine dose on 02/04/25
-Colchicine 0.6 mg given on 02/04/25 -- has interactions with Amiodarone and Azithromycin (can increase levels of and toxicity from Colchicine) and recently given Diltiazem -- per med interactions
monograph section in the med interaction alert box, can consider giving next dose of Colchicine no earlier than 02/07/25 evening (in 3 days after 02/04, for gout flare) --> if another dose is given,
consider giving no earlier than 02/07/25 evening
-Monitor closely for any signs or symptoms of Colchicine toxicity (also have to make sure kidney function okay, and AST ALT are also mildly elevated as of February 04, 2025)
-Activity: WBAT and perform ROM to tolerance
-PT/OT
# Acute hypoxic respiratory failure
Still requiring oxygen
CT Chest noted
Not a smoker.
Appreciate pulmonary help
Home O2 assessment to be done closer to discharge
Continue Incentive Spirometer
#Suspected Acute on Chronic HFpEF suspected from A-Fib and Volume Resuscitation
-Possible from IV fluids and also has had rapid A-Fib
-Stopped IV Lasix as of 02/01/25
-Continue PO Lasix
-Decrease KCl and likely no Lasix/KCl will be needed at discharge
#Hypokalemia
-Monitor and replace potassium
#Elevated Troponin, suspect non-ischemic myocardial injury in setting of rapid a-fib
-Continue to trend troponin
-Checked Echocardiogram, no regional wall motion abnormalities, no chest pain
Troponin trending down
# TME
Resolved
Had a fall this hospitalization, requested bed alarm. She seems back to baseline today, fully oriented.
# Small bilateral pleural effusion, with acute pulmonary edema
-Hold Lasix for now as above
# Non-ischemic myocardial injury - acute in setting of new rapid Afib, peak troponin 0.308
# Hyperhidrosis
-Hold home Glycopyrrolate for now given anticholinergic effects which could have contributed to patient's symptoms
-Patient's daughter did mention that patient is sweating more, but patient does have chronic sweating more
#Hyponatremia, mildly likely hypovolemic in nature
-Resolved with IVF
#Essential Hypertension
-Continue current medications
#Hyperlipidemia
-Continue Zetia
#Post-Surgical Hypothyroidism
-Continue levothyroxine
#Abnormal CT findings, malignancy not ruled out
-Patient will need a repeat CT Chest in 4-6 weeks to assure that her right perihilar consolidation improves
#Anxiety
-Continue Zoloft
DVT Prophylaxis: Eliquis
Code Status: Full Code
On February 03, 2025, I spoke with patient's daughter and answered all her questions and concerns to satisfaction.
On February 04, 2025 and February 05, 2025, I spoke with patient's daughter and answered all her questions and concerns to satisfaction.
Anticipated Discharge: 24 - 48 hours
Subjective/Interval History
-
Date of Service: February 05, 2025
Patient was seen and examined. She reported her ankle pain is better, she denied any significant chest pain or shortness of breath. Still having loose bowel movements.
Objective Data
-
Labs:
Laboratory Results
02/05/25
03:53
WBC 19.2 H
Hgb 12.5
Hct 36.6 L
Plt Count 226
Sodium 132 L
Potassium 4.9
Chloride 101
Carbon Dioxide 25
BUN 30 H
Creatinine 0.9
Glucose 103 H
Calcium 8.4
Total Bilirubin 0.7
AST 54 H
ALT 69 H
Alkaline Phosphatase 219 H
Vital Signs:
Vital Signs
Temp Pulse Resp BP Pulse Ox
97.4 F 80 20 130/69 97
02/05/25 07:14 02/05/25 08:00 02/05/25 07:14 02/05/25 07:13 02/05/25 07:14
I&O
02/04/25 02/05/25 02/06/25
06:59 06:59 06:59
Intake Total 1440 / 1440
Output Total 500 / 500
Balance 940 / 940
[2025-02-05 11:53] VITALS: BP 116/75
[2025-02-05] MEDS: MYCOSTATIN ORAL SUSPENSION 5 ML PO ×3 (13:49→21:43)
[2025-02-05] MEDS: ZETIA 10 MG PO (13:49)
--- NOTE | 2025-02-05 15:08 | W.PN.PUL3 ---
Today's Communication / Plan
-
- Continue to wean oxygen as tolerated
- Continue azithromycin oral. QTc 482 this morning
Assessment
-
Assessment: 79-year-old female with a past medical history of GERD, anemia, iron deficiency, thyroid disease, hyperlipidemia, hypertension and anxiety who presents with head congestion, cough, diarrhea and reduced appetite for 2 days. She was
initially afebrile to 98.9 �F. Initial WBC 16.2, sodium 131, chloride 96, troponin 0.308, UA showed + ketones. Initial flu swab negative. Urine culture collected. Due to headache and balance issues, CT head obtained showing no acute intracranial
abnormality. She was also in new onset A-fib with RVR. She initially was admitted to the hospitalist service for rate control, given IVF, and stool studies were ordered. She had required supplemental oxygen initially at 2 L and then on 01/29 oxygen
requirements increased to 4 L/min. Due to her hypoxia, diarrhea and fevers, CT chest, abdomen/pelvis was done on 02/24/2025 showing bilateral pleural effusions, right perihilar opacity extending into the right upper lobe with right hilar and small
mediastinal lymphadenopathy � unable to rule out malignancy. Also a small pericardial effusion. Pulmonary service now consulted for additional recommendations.
Chronic conditions [employer]: GERD, anemia, iron deficiency, hypothyroidism, hyperlipidemia, hypertension, anxiety, arthritis
02/04. WBC count elevated at 19, essentially unchanged from yesterday. Afebrile now. Last temperature was 100.2 on 02/01.
Impression:
#Acute hypoxic respiratory failure due to acute decompensated heart failure in the setting of suspected right perihilar pneumonia; unable to rule out malignancy
Positive Legionella pneumonia urine antigen 01/30/2025
#New onset A-fib with RVR
#Pneumonia - right perihilar region and possibly lower lobes, although lower lobes is likely compressive atelectasis and not an infection
#Small pericardial effusion seen on CT chest 01/28/2025
#Cholelithiasis
#Elevated troponin � likely due to demand ischemia with type II [place]
#Febrile illness
#Diarrhea
#Hypothyroidism
Plan:
#. Legionella Pneumonia.
Clinical picture consistent with pneumonia, Legionella urine antigen+ 01/30/2025
From the pulmonary perspective overall improved.
Oxygenation remains at 4 L
Repeat chest x-ray 02/03/2025: Improving bilateral infiltrates. Minimal left pleural effusion.
Continue Azithromycin 500 mg daily. Currently scheduled for a total of 2 weeks of antibiotics. Patient already completed 5 days of ceftriaxone.
Incentive spirometer encouraged q1hr while awake
Normal LFT and renal function.
Pt report exposure to mice dropping at home few days prior getting sick.
CT chest/abdomen/pelvis on 01/28/2025 showing a right perihilar consolidative opacity and additional opacities in the right middle lobe + lingula, and bilateral pleural effusions with adjacent bibasilar consolidative opacities --> she will need a
repeat CT Chest in 4-6 weeks to assure that her right perihilar consolidation improves. Outpatient follow-up with Dr. Howell
Continue symptomatic management:
- Continue Tessalon Perles + prn codeine cough syrup due to bothersome coughing spells.
Rapid atrial fibrillation: Amiodarone started 02/02/2025-had an episode of rapid atrial fibrillation with heart rate into the 150s.
Currently on p.o. amiodarone and Eliquis
Echocardiogram 01/27/2025: Normal LVEF. Mild AR. Normal right ventricular size and function.
Not hypotensive
Cardiology following
Continue to monitor diarrhea-intermittently; C. difficile testing was negative; Campylobacter + Salmonella/Shigella cultures both negative
Benign abdominal exam.
Physical therapy and Occupational Therapy as tolerated.
- DVT ppx: Eliquis due to A-fib
Pulmonary service will continue to follow along. Outpatient pulmonary follow-up will also be arranged for full PFTs and symptom management/monitoring.
Data:
CT Chest/Abd/Pelvis 01/28/2025:
Bilateral lower lobe opacification with air bronchograms compatible with atelectasis and/or pneumonia with small bilateral pleural effusions.
Right perihilar opacification extending into the right upper lobe which may represent pneumonitis with accompanying small to moderate right hilar and small mediastinal lymph nodes. Unfortunately, malignancy centrally in the right hemithorax cannot
be excluded. Recommend short-term follow-up Chest CT.
Small pericardial effusion.
2.7 cm simple right lobe hepatic cyst.
Cholelithiasis. No findings to suggest biliary tract dilatation.
No right lower quadrant inflammatory changes, intestinal obstruction or free air.
Subjective Data
-
Date of Service:
Date of Service: February 05, 2025
Chief Complaint: Pulmonary Follow Up (Pneumonia)
Subjective:
Patient continues to improve, cough and shortness of breath improving.
Review of Systems
Genitourinary: Other (All 14 systems reviewed and negative except as stated above in the history of present illness.)
Objective Data
Data Reviewed
Vital Signs / I&O / Oxygen:
Vital Signs
Temp Pulse Resp BP Pulse Ox
97.2 F 64 20 116/75 98
02/05/25 11:53 02/05/25 12:00 02/05/25 11:53 02/05/25 11:53 02/05/25 11:53
Intake and Output
02/04/25 02/05/25 02/06/25
06:59 06:59 06:59
Intake Total 1440 / 1440
Output Total 500 / 500
Balance 940 / 940
SaO2 98
Nasal Cannula flow liters per 4
minute
Physical Exam
General: Respiratory Distress (none) and Comfortable
HEENT: Normocephalic
Cardiovascular: S1-S2
Respiratory: Clear, Crackles (Few basilar inspiratory crackles posteriorly.) and Non-Labored Respirations
GI: Soft and Non Distended
Neurology: Awake, Alert and Oriented
Skin: Warm
Labs/Micro/Reports
Lab Data
02/05/25 03:53
02/05/25 03:53
Microbiology
02/03/25 16:04 Throat/Pharynx Throat Culture - Final
Usual Respiratory Lisa
02/03/25 17:24 Blood/Venous Blood Culture - Preliminary
No Growth in 24 hours- Final report to follow
02/03/25 16:07 Blood/Venous Blood Culture - Preliminary
No Growth in 24 hours- Final report to follow
02/02/25 11:41 Feces/Stool Salmonella/Shigella Culture - Final
No Salmonella, Shigella, Aeromonas or Plesiomonas species
isolated.
02/02/25 11:41 Feces/Stool Campylobacter Culture - Final
No Campylobacter species isolated.
02/02/25 11:41 Feces/Stool Stool Leukocytes - Final
02/02/25 11:41 Feces/Stool C. difficile GDH Antigen & Toxins - Final
Negative for toxigenic C.difficile
01/28/25 11:13 Blood/Venous Blood Culture - Final
No Growth - Final Report
[2025-02-05 15:17] VITALS: BP 123/73
[2025-02-05 19:06] VITALS: BP 121/70
--- NOTE | 2025-02-05 20:30 | PTCARENOTE ---
Received pt @ change of shift. AAOx3, OOB in chair, VSS on 4L of O2, NSR on monitor. Denies ankle pain, SOB, or chest pain @ this time. Discussed plan of care for evening. Pt verbalizes understanding. Call marques within reach.
[2025-02-05 21:47] VITALS: BP 121/66
[2025-02-06] VITALS (9 sets, daily range): BP systolic 104–128; BP diastolic 50–73; PULSE 81–88; O2SAT 99; BMI 25.9
[2025-02-06 05:17] LABS: Hematocrit 38.9 % (37.0-47.0); Hemoglobin 12.7 g/dL (12.0-16.0); Mean Corp Hgb Conc. 32.6 g/dL (33.0-37.0); Mean Corpuscular Hgb 29.1 pg (27.0-31.0); Mean Corpuscular Volume 89.2 fL (81.0-99.0); Mean Platelet Volume 10.9 fL (7.4-10.4); Platelet Count 322 10^3/uL (130-400); Red Blood Cell Count 4.36 10^6/uL (4.20-5.40); Red Cell Dist. Width 15.5 % (11.5-14.5); White Blood Cell Count 15.4 10^3/uL (4.8-10.8)
[2025-02-06 05:19] LABS: ALT (SGPT) 64 U/L (0-35); AST (SGOT) 48 U/L (14-36); Albumin 2.3 g/dl (3.5-5.0); Alkaline Phosphatase 219 U/L (38-126); Blood Urea Nitrogen 29 mg/dl (7-17); Carbon Dioxide 24 mmol/L (22-30); Chloride 104 mmol/L (98-107); Estimated Creatinine Clearance 45 ml/min; Glucose 86 mg/dl (70-99); Magnesium 2.2 mg/dl (1.6-2.3); Potassium 4.6 mmol/L (3.5-5.1); Sodium 137 mmol/L (135-145); Total Bilirubin 0.5 mg/dl (0.2-1.3); eGFR > 60.00
[2025-02-06] MEDS: SYNTHROID 88 MCG PO (06:31)
--- NOTE | 2025-02-06 07:45 | PTCARENOTE ---
Assumed care of pt from prev nsg shift; Pt AAOx3 w/no c/o CP or SOB. Pt assisted OOB to CH. Pt's mobility increasingly improved overnight since this RN last cared for her. Pt's VSS w/HR in the 80's & BP 114/73 this AM. Pt is SR on telemetry
monitoring/no Afib noted this AM. Pt's appetite slightly improved this AM. Pt continues to have diarrhea frequently. Pt w/call marques within reach & no addtl needs at this time. Plan of care ongoing.
[2025-02-06 08:06] LABS: Band Neutrophils 7 % (0-3); Eosinophils 1 % (0-6); Lymphocytes 6 % (20-51); Metamyelocytes 4 % (-); Monocytes 3 % (2-9); Myelocytes 1 % (-); Segmented Neutrophils 78 % (42-75)
[2025-02-06 08:07] LABS: Anisocytosis 1+; Hypochromasia 1+; Normal RBC Morphology No; Platelets Checked Yes; Polychromasia 1+; Total Cells Counted 100
--- NOTE | 2025-02-06 09:36 | W.PN.PUL.V3 ---
Today's Communication / Plan
-
.
Wean oxygen.
Increase activity.
L was continues
Amiodarone load.
Continue azithromycin.
Infectious disease consultation pending
Assessment
-
Assessment: 79-year-old female with a past medical history of GERD, anemia, iron deficiency, thyroid disease, hyperlipidemia, hypertension and anxiety who presents with head congestion, cough, diarrhea and reduced appetite for 2 days. She was
initially afebrile to 98.9 �F. Initial WBC 16.2, sodium 131, chloride 96, troponin 0.308, UA showed + ketones. Initial flu swab negative. Urine culture collected. Due to headache and balance issues, CT head obtained showing no acute intracranial
abnormality. She was also in new onset A-fib with RVR. She initially was admitted to the hospitalist service for rate control, given IVF, and stool studies were ordered. She had required supplemental oxygen initially at 2 L and then on 01/29 oxygen
requirements increased to 4 L/min. Due to her hypoxia, diarrhea and fevers, CT chest, abdomen/pelvis was done on 02/24/2025 showing bilateral pleural effusions, right perihilar opacity extending into the right upper lobe with right hilar and small
mediastinal lymphadenopathy � unable to rule out malignancy. Also a small pericardial effusion. Pulmonary service now consulted for additional recommendations.
Chronic conditions [employer]: GERD, anemia, iron deficiency, hypothyroidism, hyperlipidemia, hypertension, anxiety, arthritis
02/04. WBC count elevated at 19, essentially unchanged from yesterday. Afebrile now. Last temperature was 100.2 on 02/01.
Impression:
#Acute hypoxic respiratory failure due to acute decompensated heart failure in the setting of suspected right perihilar pneumonia; unable to rule out malignancy
Positive Legionella pneumonia urine antigen 01/30/2025
#New onset A-fib with RVR
#Pneumonia - right perihilar region and possibly lower lobes, although lower lobes is likely compressive atelectasis and not an infection
#Small pericardial effusion seen on CT chest 01/28/2025
#Cholelithiasis
#Elevated troponin � likely due to demand ischemia with type II [place]
#Febrile illness
#Diarrhea
#Hypothyroidism
Plan:
Respiratory status slowly improving.
Wean supplemental oxygen-assess discharge. Supplemental oxygen needs prior to discharge.
Aspiration precautions.
Incentive spirometry..
Follow-up CT chest in for-6 weeks
Cultures reviewed.
Antibiotics continue-azithromycin for Legionella.
Monitor QTC.
Infectious disease consultation pending
Cardiology following-correspondence reviewed.
Amiodarone load with subsequent maintenance for 3 months and then discontinue.
Diuresis-gentle
Eliquis continues
Atrial fibrillation. Rate control
Monitor diarrhea.
Stool samples negative..
Imodium held due to high risk for QT prolongation with Zoloft and azithromycin
Complains of ear issues.
Requesting ENT evaluation.
Follow-up recommendations reviewed with daughter was present during interview and exam.
DVT prophylaxis-Eliquis
Nutrition
Early mobilization.
Outpatient pulmonary follow-up
Data:
CT Chest/Abd/Pelvis 01/28/2025:
Bilateral lower lobe opacification with air bronchograms compatible with atelectasis and/or pneumonia with small bilateral pleural effusions.
Right perihilar opacification extending into the right upper lobe which may represent pneumonitis with accompanying small to moderate right hilar and small mediastinal lymph nodes. Unfortunately, malignancy centrally in the right hemithorax cannot
be excluded. Recommend short-term follow-up Chest CT.
Small pericardial effusion.
2.7 cm simple right lobe hepatic cyst.
Cholelithiasis. No findings to suggest biliary tract dilatation.
No right lower quadrant inflammatory changes, intestinal obstruction or free air.
Subjective Data
-
Date of Service:
Date of Service: February 06, 2025
Chief Complaint: Pulmonary Follow Up (Pneumonia) and Dyspnea Follow Up
Subjective:
Out of bed in chair, no complaints of worsening shortness of breath, some dyspnea on exertion, no chest pain, productive cough, or abdominal pain, has diarrhea
Review of Systems
General: Other (per HPI)
Objective Data
Data Reviewed
Vital Signs / I&O:
Vital Signs
Temp Pulse Resp BP Pulse Ox
97.8 F 82 18 114/73 97
02/06/25 07:21 02/06/25 08:00 02/06/25 07:21 02/06/25 07:19 02/06/25 07:21
Intake and Output
02/05/25 02/06/25 02/07/25
06:59 06:59 06:59
Intake Total 1440 / 1440 720 / 720
Output Total 500 / 500 300 / 300
Balance 940 / 940 420 / 420
SaO2: 97
Nasal Cannula flow liters per minute: 4
Physical Exam
General: Respiratory Distress (none) and Comfortable
HEENT: Normocephalic
Cardiovascular: Regular Rhythm
Respiratory: Clear, Crackles (Few basilar inspiratory crackles posteriorly.) and Non-Labored Respirations
GI: Soft and Non Distended
Neurology: Awake, Alert and No Motor Deficits
Skin: Warm, Good Color, Cyanosis (n) and Jaundice (n)
Labs/Micro/Reports
Lab Data
02/06/25 04:20
02/06/25 04:20
Microbiology
02/03/25 17:24 Blood/Venous Blood Culture - Preliminary
No Growth in 48 hours- Final report to follow
02/03/25 16:07 Blood/Venous Blood Culture - Preliminary
No Growth in 48 hours- Final report to follow
02/03/25 16:04 Throat/Pharynx Throat Culture - Final
Usual Respiratory Lisa
02/02/25 11:41 Feces/Stool Salmonella/Shigella Culture - Final
No Salmonella, Shigella, Aeromonas or Plesiomonas species
isolated.
02/02/25 11:41 Feces/Stool Campylobacter Culture - Final
No Campylobacter species isolated.
02/02/25 11:41 Feces/Stool Stool Leukocytes - Final
--- NOTE | 2025-02-06 09:42 | W.PN.CD ---
Today's Communication / Plan
-
Amio 400 bid through 02/17/2025 then 200 mg daily for 3 months then STOP amio
Continue daily Lasix 40 mg PO daily, consider stopping at discharge or in 3 months
FCI Eliquis
Repeat CT chest in several months per pulmonary
Impression / Plan
-
Legionnaires' disease with pneumonia
- For 14 days of Azithromycin
Abnormal CT findings, malignancy not ruled out
- Pulmonary plans repeat imaging in 4-6 weeks
New Paroxysmal Afib with RVR.
- Last Afib was just 30 min or so and was on 02/05/2025 at 0718 hrs t o0754 hrs (was fast)
- On PO Eliquis 5mg bid
- [id number] at least 5 (age4, htN, suspected acute HF, gender)
- Amio 400 bid through 02/17/2025 then 200 mg daily for 3 months then STOP amio
- Will consider MCOT at discharge (for tele with Azithromycin + Amio)
- Watch QTc (more so in NSR where it is more accurately measured): stable under 500 msec
Suspected HFpEF: stable
- Precipitated by rapid AFib and IV Fluids
- Now on Lasix 40mg daily
- Consider stopping Lasix/KCl at discharge or using for 3 more months Suspect no Lasix/KCl at discharge
Acute Non-ischemic myocardial injury - acute in setting of new rapid Afib
- peak troponin 0.308
Suspected gout
HTN
HLD
Hypothyroidism
Anxiety
Subjective:
Feeling weak but no dyspnea or palps
Echo : Normal LV/RV. Mild AR. Stable from 04/01/22.
CT chest/abdomen 01/28/2025:
Bilateral lower lobe opacification with air bronchograms compatible with atelectasis and/or pneumonia with small bilateral pleural effusions. Right perihilar opacification extending into the right upper lobe which may represent pneumonitis with
accompanying small to moderate right hilar and small mediastinal lymph nodes. Unfortunately, malignancy centrally in the right hemithorax cannot be excluded. Recommend short-term follow-up Chest CT. Small pericardial effusion. 2.7 cm simple right
lobe hepatic cyst. Cholelithiasis. No findings to suggest biliary tract dilatation. No right lower quadrant inflammatory changes, intestinal obstruction or free air.
Physical Exam
Vital Signs/Labs
Vital Signs
Temp Pulse Resp BP Pulse Ox
97.8 F 82 18 114/73 97
02/06/25 07:21 02/06/25 08:00 02/06/25 07:21 02/06/25 07:19 02/06/25 09:36
02/05/25 02/06/25 02/07/25
06:59 06:59 06:59
Actual Weight 69.5 kg 68.5 kg
02/06/25 04:20
02/06/25 04:20
APTT 42.3 Sec (23.4-35.0) H 01/28/25 14:54
Magnesium 2.2 mg/dl (1.6-2.3) 02/06/25 04:20
02/05/25
03:53
[id number] Pept 848
Physical Exam
Constitutional: No acute distress
EENT: Anicteric
Cardiovascular: Rhythm & rate is regular and Pedal edema is absent
Respiratory: Respiratory effort normal, Crackles Absent and Rhonchi Present
GI: Soft and Distention absent
Neuro/Psych: AO x 3
Data Reviewed
-
Date of Service: February 06, 2025
[2025-02-06] MEDS: LASIX 40 MG PO (09:58)
[2025-02-06] MEDS: VISBIOME 1 CAP PO (09:58)
[2025-02-06] MEDS: ZOLOFT 50 MG PO (09:58)
[2025-02-06] MEDS: PEPCID 20 MG PO (09:58)
[2025-02-06] MEDS: PACERONE 400 MG PO ×2 (09:58→20:34)
[2025-02-06] MEDS: MYCOSTATIN ORAL SUSPENSION 5 ML PO ×3 (09:59→23:03)
[2025-02-06] MEDS: LIDOCAINE 4% PATCH 1 PATCH TOPICAL (09:59)
[2025-02-06] MEDS: ELIQUIS 5 MG PO ×2 (09:59→20:33)
[2025-02-06] MEDS: KCL ELIXIR PO ×2 (09:59→13:37)
[2025-02-06] MEDS: ZITHROMAX 500 MG PO (09:59)
[2025-02-06 12:26] LABS: Erythrocyte Sed Rate 69 mm/hour (0-20)
--- NOTE | 2025-02-06 12:46 | W.PN.HOSP.TC ---
Today's Communication/Plan
-
ID consult
wean off O2
EKG in AM
check ESR
Assessment / Plan
Assessment / Plan
79yo F with PMHx of HLD, hyperhydrosis, hypothyroidism, GERD, anxiety came with SOB and diarrhea, found pneumonia and tested positive for Legionella urinary Ag, improving on Azithromycin started on 01/30/25. ALso found new onset Afib and subacute CHF.
Hsopital stay complicated with R >L ankle swelling s/p arthrocenthesis by ortho with concern for gout and satrted on empiric colchicine that stopped due to diarrhea.
A/P:
#Acute hypoxic respiratory failure 2/2 legionella pneumonia
Azithromycin and daily QTc monitoring
ID consult for duration/selection
#Right perihilar opacification
Pulm follows
repeat CT chest in 4-6 weeks
#Diarrhea
most likely Abx-induced vs colchicine induced
Probiotics
Avoid Imodium since high risk for QTc prolongation with Zoloft and Azithromycin
Stool studies neg, WBC neg
Might need outpatient follow up with GI if not resolved after completion of Abx course
#R hearing loss
concern for loop diuretic effect
stop Lasix with low concern for CHF from cardiology
outpatient ENT
#New onset Afib with RVR
#Non-ischemic myocardial injury
on ELiquis
cont rate control
cardio follows
#R>L ankle swelling
s/p arthrocentesis by ortho
improved
cocern for gout
test Uric acid
Reactive arthritis? - outpatient rheumatology
#Thrush
Hx of jaw dyscomfort
no vision changes, no temporal temnderness
check ESR
#2.7 cm simple right lobe hepatic cyst
#Asymptomatic cholelithiasis
no follow up advised
#Hyperhydrosis
#Hyperthyroidism
#HLD
#EssentiL HTN
#Anxiety d/o
TSH WNL
cont home meds
#DJD
Tylenol
PT/OT, rehab
DVT ppx eliquis
Full code
I have spent at least 59min reviewing chart, test results, communication with consultants, daughter bedside and providing direct patient care
Anticipated Discharge: 24 - 48 hours
Subjective/Interval History
-
Date of Service: February 06, 2025
Objective Data
-
Labs:
Laboratory Results
02/06/25
04:20
WBC 15.4 H
Hgb 12.7
Hct 38.9
Plt Count 322 D
Sodium 137
Potassium 4.6
Chloride 104
Carbon Dioxide 24
BUN 29 H
Creatinine 0.9
Glucose 86
Calcium 8.0 L
Total Bilirubin 0.5
AST 48 H
ALT 64 H
Alkaline Phosphatase 219 H
Vital Signs:
Vital Signs
Temp Pulse Resp BP Pulse Ox
97.4 F 81 20 109/70 97
02/06/25 11:33 02/06/25 11:36 02/06/25 11:33 02/06/25 11:36 02/06/25 09:36
I&O
02/05/25 02/06/25 02/07/25
06:59 06:59 06:59
Intake Total 1440 / 1440 720 / 720
Output Total 500 / 500 300 / 300
Balance 940 / 940 420 / 420
Review of Systems
-
History Source: Patient
All other systems: Reviewed and negative
Physical Exam
-
General: No Apparent Distress
HEENT: Normocephalic
Respiratory: Clear to Auscultation
Cardiac: Regular Rhythm
GI: Soft, Nontender and Nondistended
Musculoskeletal: No Clubbing, No Cyanosis and No Edema
Neuro: Awake, Alert, Oriented and AO x 3
Psych: Calm
[2025-02-06 13:15] LABS: C-Reactive Protein > 270.00 mg/L (0.0-10.00)
[2025-02-06] MEDS: MYCOSTATIN ORAL SUSPENSION PO (13:36)
--- NOTE | 2025-02-06 14:47 | CON.ID ---
Consultation
-
Date/Time Consultation Requested: February 06, 2025 1240
Date/Time Consultation Performed: February 06, 2025 1450
Requesting Provider: Dr. Mahin Shay
Performing Provider: Dr. Tracy Rolle
Reason for Consultation: Legionella
Chief Complaint / Past History
Chief Complaint
Dizziness, headache, head congestion, cough, diarrhea
History of Present Illness
79-year-old female with history of hypertension who presented to the hospital on January 26 with approximately 4 to 5-day history of worsening weakness, head congestion, head pains, dizziness, cough and diarrhea. In the hospital she was found to have
new onset A-fib with RVR. Temperature was one 101.9. White count 16.2. Sodium 131. She was hypoxic requiring nasal cannula oxygen. Stool for C. difficile and cultures negative. CT of the chest abdomen pelvis showed bibasilar opacities with air
bronchograms. Patient initially was placed on ceftriaxone. Urine Legionella antigen resulted as positive, she was started on azithromycin on January 30. She is slowly improving. Head congestion and head pain now resolved. Cough is stable. Shortness
of breath improving. Recent travel to see the [place]. Also her refrigerator has broken down. During hospital stay, she developed right ankle swelling and pain. Orthopedic suspected gout, attempted to aspirate fluid but failed. She was
placed on colchicine but then developed recurrence of diarrhea and therefore colchicine discontinued. In the meantime the ankle is feeling better. She was able to ambulate today. No known history of gout in the past.
Past History
Additional Past Medical History:
Hypertension
Hyperlipidemia
Mild Aortic Regurgitation
Hypothyroidism
Anxiety
GERD
Thyroidectomy
Right Wrist ORIF
Right Knee Replacement
Allergy History:
lisinopril Allergy (Verified 01/26/25 20:20)
Unknown
Medications Reviewed: Yes
Social History
Tobacco: Non-Smoker
Alcohol: Occasional
Drug: None
Family History
Family History: Not Pertinent
Review of Systems
Review of Systems
General: Change in Appetite
HEENT: Negative Sinus Problems or Pharyngitis
Respiratory: Dyspnea and Cough
Gasteroenterology: Diarrhea; Negative Nausea or Vomiting
Genital / Urological: Negative Dysuria or Flank Pain
Endocrine: Weakness
Skin / Hair / Nails: Negative Rash
All systems: All other systems were reviewed and were negative
Vital Signs
Temp Pulse Resp BP Pulse Ox
97.4 F 81 20 109/70 97
02/06/25 11:33 02/06/25 11:36 02/06/25 11:33 02/06/25 11:36 02/06/25 09:36
Physical Exam
Physical Exam
Constitutional: No Acute Distress and Non-toxic
Head: Other (No frontal or maxillary sinus tenderness)
Eyes: No Conjunctival Hemorrhage and Sclera Anicteric
Cardiovascular: Regular Rate and S1/S2
Pulmonary: Rales (Bi- base)
Gastrointestinal: Soft, Non Tender, Non Distended and Normal Bowel Sounds
Extremities: Negative Edema
Musculoskeletal: Other (Right ankle mild edema/erythema, ROM intact)
Neurological: AO x 3
Lab / Diagnostic Study Results
02/06/25 04:20
02/06/25 04:20
Abs Immat Gran (auto) 1.3 10^3/uL (0-0.05) H 02/05/25 03:53
Absolute Neuts (auto) 16.0 10^3/uL (1.4-6.5) H 02/05/25 03:53
Absolute Lymphs (auto) 1.0 10^3/uL (1.2-3.4) L 02/05/25 03:53
Absolute Monos (auto) 0.6 10^3/uL (0.1-0.6) 02/05/25 03:53
Absolute Basos (auto) 0.1 10^3/uL (0-0.2) 02/05/25 03:53
Total Counted 100 02/06/25 04:20
Immature Gran % 6.9 % (0-0.5) H 02/05/25 03:53
Neutrophils % 83.3 % (42.2-75.2) H 02/05/25 03:53
Lymphocytes % 5.3 % (20.5-51.1) L 02/05/25 03:53
Monocytes % 3.2 % (1.7-9.3) 02/05/25 03:53
Eosinophils % 0.8 % (0-6) 02/05/25 03:53
Basophils % 0.5 % (0-2) 02/05/25 03:53
Abs Neuts (Manual) 13.0 10^3/uL (1.4-6.5) H 02/06/25 04:20
Segmented Neutrophils 78 % (42-75) H 02/06/25 04:20
Band Neutrophils 7 % (0-3) H D 02/06/25 04:20
Lymphocytes (Manual) 6 % (20-51) L 02/06/25 04:20
Eosinophils (Manual) 1 % (0-6) 02/06/25 04:20
ESR 69 mm/hour (0-20) H 02/06/25 04:20
C-Reactive Protein > 270.00 mg/L (0.0-10.00) H 02/06/25 03:53
Ur Squamous Epith Cells 3-5 /LPF (Few) 01/26/25 17:09
Microbiology Results
Micro:
02/02/25 11:41 Salmonella/Shigella Culture - Final
Feces/Stool No Salmonella, Shigella, Aeromonas or Plesiomonas species
isolated.
Campylobacter Culture - Final
No Campylobacter species isolated.
Shiga Toxin Test - Final
No E. coli Shiga Toxin 1 or 2 detected.
Stool Leukocytes - Final
02/03/25 17:24 Blood Culture - Preliminary
Blood/Venous No Growth in 48 hours- Final report to follow
02/03/25 16:07 Blood Culture - Preliminary
Blood/Venous No Growth in 48 hours- Final report to follow
02/03/25 16:04 Throat Culture - Final
Throat/Pharynx Usual Respiratory Lisa
02/02/25 11:41 C. difficile GDH Antigen & Toxins - Final
Feces/Stool Negative for toxigenic C.difficile
01/28/25 11:13 Blood Culture - Final
Blood/Venous No Growth - Final Report
02/01/25 04:37 Respiratory Culture - Final
Sputum Gram Stain - Final
01/30/25 01:28 MRSA Screen - Final
Nose No Methicillin Resistant Staphylococcus aureus isolated.
01/27/25 00:45 Salmonella/Shigella Culture - Final
Feces/Stool No Salmonella, Shigella, Aeromonas or Plesiomonas species
isolated.
Campylobacter Culture - Final
No Campylobacter species isolated.
Shiga Toxin Test - Final
No E. coli Shiga Toxin 1 or 2 detected.
01/30/25 01:28 Legionella Urinary Antigen - Final
Urine Positive for L. pneumophila Ag
Streptococcus pneumoniae Antigen (M - Final
Negative for Streptococcus pneumoniae antigen.
A negative result does not exclude infection with
Streptococcus pneumoniae. Clinical correlation is
recommended.
01/26/25 17:09 Urine Culture - Final
Urine
01/27/25 00:45 C. difficile GDH Antigen & Toxins - Final
Feces/Stool Negative for toxigenic C.difficile
- Final
Negative for Norovirus GI and GII.
01/26/25 17:09 Influenza Types A & B (GABO) - Final
Nasal Swab Negative for Influenza A & B, NAAT
Negative results must be combined with clinical observations
and patient history.
Nucleic Acid Amplification test (NAAT)performed on the
[employer] platform.
01/28/25 CT C/A/P: Bilateral lower lobe opacification with air bronchograms compatible with atelectasis and/or pneumonia with small bilateral pleural effusions.
Right perihilar opacification extending into the right upper lobe which may represent pneumonitis with accompanying small to moderate right hilar and small mediastinal lymph nodes. Unfortunately, malignancy centrally in the right hemithorax cannot
be excluded. Recommend short-term follow-up Chest CT.
Cholelithiasis. No findings to suggest biliary tract dilatation.
02/03/25 CXR: Patchy bilateral parenchymal opacities, slightly improved compared to CT of January 28, 2025. Findings are most suggestive of improving bilateral pneumonia.
02/04/25 Right ankle XRAY: No evidence of acute fracture or dislocation.
Assessment / Plan
# Legionella pneumonia
# Acute hypoxic respiratory insufficiency improving
# Fever resolved
# Leukocytosis trending down
- Continue Azithromycin 500mg po daily x 14days through 02/12/25.
- Trend wbc
# Right ankle swelling
- Suspect gout
- Intolerable to colchicine
- Symptoms overall improving
# Afib
- Monitor QTc while on amiodarone and azithromycin.
--- NOTE | 2025-02-06 15:12 | CM ---
zita das called and resinded the bed, stating pt is too medically complex for them. called [facility]- awaiting bed avail.
[2025-02-06 16:03] LABS: Uric Acid 6.3 mg/dl (2.5-6.2)
[2025-02-06] MEDS: ZETIA 10 MG PO (16:20)
[2025-02-07 03:26] VITALS: BP 100/70
[2025-02-07 03:28] VITALS: BMI 25.6
[2025-02-07 05:25] LABS: ALT (SGPT) 51 U/L (0-35); AST (SGOT) 42 U/L (14-36); Albumin 2.1 g/dl (3.5-5.0); Alkaline Phosphatase 179 U/L (38-126); Blood Urea Nitrogen 24 mg/dl (7-17); Calcium 7.9 mg/dl (8.4-10.2); Carbon Dioxide 27 mmol/L (22-30); Chloride 107 mmol/L (98-107); Estimated Creatinine Clearance 51 ml/min; Glucose 89 mg/dl (70-99); Hematocrit 35.3 % (37.0-47.0); Hemoglobin 11.6 g/dL (12.0-16.0); Magnesium 2.1 mg/dl (1.6-2.3); Mean Corp Hgb Conc. 32.9 g/dL (33.0-37.0); Mean Corpuscular Hgb 29.2 pg (27.0-31.0); Mean Corpuscular Volume 88.9 fL (81.0-99.0); Mean Platelet Volume 10.5 fL (7.4-10.4); Platelet Count 308 10^3/uL (130-400); Potassium 4.2 mmol/L (3.5-5.1); Red Blood Cell Count 3.97 10^6/uL (4.20-5.40); Red Cell Dist. Width 15.1 % (11.5-14.5); Sodium 134 mmol/L (135-145); Total Bilirubin 0.5 mg/dl (0.2-1.3); Total Protein 5.3 g/dl (6.3-8.2); Uric Acid 7.1 mg/dl (2.5-6.2); White Blood Cell Count 12.1 10^3/uL (4.8-10.8); eGFR > 60.00
[2025-02-07] MEDS: SYNTHROID 88 MCG PO (06:28)
[2025-02-07 06:39] LABS: Absolute Neutrophils -Man Diff 9.4 10^3/uL (1.4-6.5); Band Neutrophils 0 % (0-3); Lymphocytes 15 % (20-51); Metamyelocytes 1 % (-); Monocytes 3 % (2-9); Myelocytes 3 % (-); Normal RBC Morphology Yes; Platelets Checked Yes; Segmented Neutrophils 78 % (42-75)
[2025-02-07 06:40] LABS: Total Cells Counted 100
[2025-02-07 07:55] VITALS: BP 105/54
--- NOTE | 2025-02-07 07:56 | W.PN.PUL.V3 ---
Today's Communication / Plan
-
Azithromycin
Monitor QTc
Wean oxygen
Assess discharge supplemental oxygen needs
CT chest 4-6 weeks
Assessment
-
Assessment: 79-year-old female with a past medical history of GERD, anemia, iron deficiency, thyroid disease, hyperlipidemia, hypertension and anxiety who presents with head congestion, cough, diarrhea and reduced appetite for 2 days. She was
initially afebrile to 98.9 �F. Initial WBC 16.2, sodium 131, chloride 96, troponin 0.308, UA showed + ketones. Initial flu swab negative. Urine culture collected. Due to headache and balance issues, CT head obtained showing no acute intracranial
abnormality. She was also in new onset A-fib with RVR. She initially was admitted to the hospitalist service for rate control, given IVF, and stool studies were ordered. She had required supplemental oxygen initially at 2 L and then on 01/29 oxygen
requirements increased to 4 L/min. Due to her hypoxia, diarrhea and fevers, CT chest, abdomen/pelvis was done on 02/24/2025 showing bilateral pleural effusions, right perihilar opacity extending into the right upper lobe with right hilar and small
mediastinal lymphadenopathy � unable to rule out malignancy. Also a small pericardial effusion. Pulmonary service now consulted for additional recommendations.
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
02/04. WBC count elevated at 19, essentially unchanged from yesterday. Afebrile now. Last temperature was 100.2 on 02/01.
Impression:
#Acute hypoxic respiratory failure due to acute decompensated heart failure in the setting of suspected right perihilar pneumonia; unable to rule out malignancy
Positive Legionella pneumonia urine antigen 01/30/2025
#New onset A-fib with RVR
#Pneumonia - right perihilar region and possibly lower lobes, although lower lobes is likely compressive atelectasis and not an infection
#Small pericardial effusion seen on CT chest 01/28/2025
#Cholelithiasis
#Elevated troponin � likely due to demand ischemia with type II MT
#Febrile illness
#Diarrhea
#Hypothyroidism
Plan:
Respiratory status slowly improving-major complaint now weakness and fatigue
Wean supplemental oxygen-assess discharge supplemental oxygen needs prior to discharge-currently on 3 L
Aspiration precautions.
Incentive spirometry encouraged
Follow-up CT chest in 4-6 weeks
Cultures reviewed.
Antibiotics continue-azithromycin for Legionella.
Monitor QTC.
Infectious disease consultation noted-correspondence reviewed-continue p.o. azithromycin and monitor QTc while on amiodarone and azithromycin
Cardiology following-correspondence reviewed.
Amiodarone load with subsequent maintenance for 3 months and then discontinue.
Diuresis-gentle
Eliquis continues
Atrial fibrillation rate control
Monitor diarrhea.
Stool samples negative..
Imodium held due to high risk for QT prolongation with Zoloft and azithromycin
Complains of ear issues.
Requesting ENT evaluation-reviewed with hospitalist-this can be obtained in the outpatient setting
Follow-up recommendations reviewed with daughter was present during interview and exam.
DVT prophylaxis-Eliquis
Nutrition
Physical therapy
Outpatient pulmonary follow-up
Data:
CT Chest/Abd/Pelvis 01/28/2025:
Bilateral lower lobe opacification with air bronchograms compatible with atelectasis and/or pneumonia with small bilateral pleural effusions.
Right perihilar opacification extending into the right upper lobe which may represent pneumonitis with accompanying small to moderate right hilar and small mediastinal lymph nodes. Unfortunately, malignancy centrally in the right hemithorax cannot
be excluded. Recommend short-term follow-up Chest CT.
Small pericardial effusion.
2.7 cm simple right lobe hepatic cyst.
Cholelithiasis. No findings to suggest biliary tract dilatation.
No right lower quadrant inflammatory changes, intestinal obstruction or free air.
Subjective Data
-
Date of Service:
Date of Service: February 07, 2025
Chief Complaint: Pulmonary Follow Up (Pneumonia) and Dyspnea Follow Up
Subjective:
Feels weak, tired, no complaints of worsening shortness of breath, chest pain or abdominal pain
Review of Systems
General: Other (Per HPI)
Objective Data
Data Reviewed
Vital Signs / I&O:
Vital Signs
Temp Pulse Resp BP Pulse Ox
97.9 F 73 20 100/70 97
02/07/25 07:55 02/07/25 04:00 02/07/25 07:55 02/07/25 03:26 02/07/25 07:55
Intake and Output
02/06/25 02/07/25 02/08/25
06:59 06:59 06:59
Intake Total 720 / 720 480 / 480
Output Total 300 / 300 400 / 400
Balance 420 / 420 80 / 80
SaO2: 97
Nasal Cannula flow liters per minute: 3
Physical Exam
General: Respiratory Distress (none) and Comfortable
HEENT: Normocephalic
Cardiovascular: Regular Rhythm
Respiratory: Clear, Crackles (Few basilar inspiratory crackles posteriorly.) and Non-Labored Respirations
GI: Soft and Non Distended
Neurology: Awake, Alert and No Motor Deficits
Skin: Warm, Good Color, Cyanosis (n) and Jaundice (n)
Labs/Micro/Reports
Lab Data
02/07/25 04:35
02/07/25 04:35
Microbiology
02/03/25 17:24 Blood/Venous Blood Culture - Preliminary
No Growth in 72 hours- Final report to follow
02/03/25 16:07 Blood/Venous Blood Culture - Preliminary
No Growth in 72 hours- Final report to follow
02/02/25 11:41 Feces/Stool Salmonella/Shigella Culture - Final
No Salmonella, Shigella, Aeromonas or Plesiomonas species
isolated.
02/02/25 11:41 Feces/Stool Campylobacter Culture - Final
No Campylobacter species isolated.
02/02/25 11:41 Feces/Stool Shiga Toxin Test - Final
No E. coli Shiga Toxin 1 or 2 detected.
02/02/25 11:41 Feces/Stool Stool Leukocytes - Final
02/03/25 16:04 Throat/Pharynx Throat Culture - Final
Usual Respiratory Lisa
--- NOTE | 2025-02-07 08:31 | W.PN.CD ---
Today's Communication / Plan
-
Amio 400 bid through 02/17/2025 then 200 mg daily for 3 months then STOP amio
Continue daily Lasix 40 mg and KCl 40 meq PO daily, consider stopping in 3 months
BMP in 1 week on Lasix/KCl
FDC Eliquis
Repeat CT chest in several months per pulmonary
Impression / Plan
-
Legionnaires' disease with pneumonia
- For 14 days of Azithromycin
Abnormal CT findings, malignancy not ruled out
- Pulmonary plans repeat imaging in 4-6 weeks
New Paroxysmal Afib with RVR.
- Last Afib was just 30 min or so and was on 02/05/2025 at 0718 hrs t o0754 hrs (was fast)
- On PO Eliquis 5mg bid
- [id number] at least 5 (age4, htN, suspected acute HF, gender)
- Amio 400 bid through 02/17/2025 then 200 mg daily for 3 months then STOP amio
- QTc has been good and no PVCs so no MCOT at discharge
- QTc is still under 500 msec and last dose of Azithromycin is about 02/12/2025
Suspected HFpEF: stable
- Precipitated by rapid AFib and IV Fluids
- Now on Lasix 40mg daily with KCl 40 po dailu
- Consider stopping Lasix/KCl in 3 more months
Acute Non-ischemic myocardial injury - acute in setting of new rapid Afib
- peak troponin 0.308
Suspected gout
HTN
HLD
Hypothyroidism
Anxiety
Subjective:
Feeling weak but no dyspnea or palps
Echo : Normal LV/RV. Mild AR. Stable from 04/01/22.
CT chest/abdomen 01/28/2025:
Bilateral lower lobe opacification with air bronchograms compatible with atelectasis and/or pneumonia with small bilateral pleural effusions. Right perihilar opacification extending into the right upper lobe which may represent pneumonitis with
accompanying small to moderate right hilar and small mediastinal lymph nodes. Unfortunately, malignancy centrally in the right hemithorax cannot be excluded. Recommend short-term follow-up Chest CT. Small pericardial effusion. 2.7 cm simple right
lobe hepatic cyst. Cholelithiasis. No findings to suggest biliary tract dilatation. No right lower quadrant inflammatory changes, intestinal obstruction or free air.
Physical Exam
Vital Signs/Labs
Vital Signs
Temp Pulse Resp BP Pulse Ox
97.9 F 73 20 100/70 97
02/07/25 07:55 02/07/25 04:00 02/07/25 07:55 02/07/25 03:26 02/07/25 07:56
02/06/25 02/07/25 02/08/25
06:59 06:59 06:59
Actual Weight 68.5 kg 67.5 kg
02/07/25 04:35
02/07/25 04:35
APTT 42.3 Sec (23.4-35.0) H 01/28/25 14:54
Magnesium 2.1 mg/dl (1.6-2.3) 02/07/25 04:35
02/05/25
03:53
Ysm-D-Aleoltbrtyy Pept 848
Physical Exam
Constitutional: No acute distress
EENT: Anicteric
Cardiovascular: Rhythm & rate is regular and Pedal edema is absent
Respiratory: Respiratory effort normal and Lungs clear to auscul.
GI: Soft and Distention absent
Neuro/Psych: AO x 3
Data Reviewed
-
Date of Service: February 07, 2025
[2025-02-07] MEDS: PEPCID 20 MG PO (08:51)
[2025-02-07] MEDS: ELIQUIS 5 MG PO (08:51)
[2025-02-07] MEDS: LIDOCAINE 4% PATCH 1 PATCH TOPICAL (08:52)
[2025-02-07] MEDS: ZOLOFT 50 MG PO (08:52)
[2025-02-07] MEDS: ZITHROMAX 500 MG PO (08:52)
[2025-02-07] MEDS: MYCOSTATIN ORAL SUSPENSION 5 ML PO ×2 (08:52→11:54)
[2025-02-07] MEDS: VISBIOME 2 CAP PO (08:52)
[2025-02-07] MEDS: PACERONE 400 MG PO (08:52)
[2025-02-07] MEDS: KCL ELIXIR 40 MEQ PO (08:52)
--- NOTE | 2025-02-07 10:27 | W.PN.ID1 ---
Date of Service
Date of Service: February 07, 2025
Today's Communication
Continue po azithromycin.
Assessment / Plan
# Severe Legionella pneumonia
# Acute hypoxic respiratory insufficiency improving
# Fever resolved
# Leukocytosis trending down
- Continue Azithromycin 500mg po daily x 14days through 02/12/25.
- Trend wbc
# Right ankle swelling
- Suspect gout
- Intolerable to colchicine
- Symptoms overall improving
# Afib
- Monitor QTc while on amiodarone and azithromycin.
# Additional Past Medical History:
Hypertension
Hyperlipidemia
Mild Aortic Regurgitation
Hypothyroidism
Anxiety
GERD
Thyroidectomy
Right Wrist ORIF
Right Knee Replacement
Chief Complaint
-: Pneumonia
Subjective / Review of Systems
Continues to feel better. Appetite improving. Ambulated to bathroom hreself.
Vital Signs / Physical Exam
Vital Signs
Vital Signs
Temp Pulse Resp BP Pulse Ox
97.9 F 85 20 105/54 97
02/07/25 07:55 02/07/25 08:52 02/07/25 07:55 02/07/25 08:52 02/07/25 07:56
Physical Exam
Constitutional: No Acute Distress and Comfortable
Cardiovascular: Regular Rate and S1/S2
Pulmonary: Coarse
Gastrointestinal: Soft, Non Tender and Non Distended
Extremities: Negative Edema
Musculoskeletal: Other (right ankle mild edema. ROM intact)
Neurological: AO x 3
Objective Data
Lab Data
Lab Results
02/07/25 04:35
02/07/25 04:35
ESR 69 mm/hour (0-20) H 02/06/25 04:20
APTT 42.3 Sec (23.4-35.0) H 01/28/25 14:54
Estimated Creat Clear 51 ml/min 02/07/25 04:35
Total Bilirubin 0.5 mg/dl (0.2-1.3) 02/07/25 04:35
AST 42 U/L (14-36) H 02/07/25 04:35
ALT 51 U/L (0-35) H 02/07/25 04:35
Alkaline Phosphatase 179 U/L (38-126) H 02/07/25 04:35
C-Reactive Protein > 270.00 mg/L (0.0-10.00) H 02/06/25 03:53
Most recent labs reviewed.
Micro Results:
02/03/25 17:24 Blood Culture - Preliminary
Blood/Venous No Growth in 72 hours- Final report to follow
02/03/25 16:07 Blood Culture - Preliminary
Blood/Venous No Growth in 72 hours- Final report to follow
02/02/25 11:41 Salmonella/Shigella Culture - Final
Feces/Stool No Salmonella, Shigella, Aeromonas or Plesiomonas species
isolated.
Campylobacter Culture - Final
No Campylobacter species isolated.
Shiga Toxin Test - Final
No E. coli Shiga Toxin 1 or 2 detected.
Stool Leukocytes - Final
02/03/25 16:04 Throat Culture - Final
Throat/Pharynx Usual Respiratory Lisa
02/02/25 11:41 C. difficile GDH Antigen & Toxins - Final
Feces/Stool Negative for toxigenic C.difficile
01/28/25 11:13 Blood Culture - Final
Blood/Venous No Growth - Final Report
02/01/25 04:37 Respiratory Culture - Final
Sputum Gram Stain - Final
01/30/25 01:28 MRSA Screen - Final
Nose No Methicillin Resistant Staphylococcus aureus isolated.
01/27/25 00:45 Salmonella/Shigella Culture - Final
Feces/Stool No Salmonella, Shigella, Aeromonas or Plesiomonas species
isolated.
Campylobacter Culture - Final
No Campylobacter species isolated.
Shiga Toxin Test - Final
No E. coli Shiga Toxin 1 or 2 detected.
01/30/25 01:28 Legionella Urinary Antigen - Final
Urine Positive for L. pneumophila Ag
Streptococcus pneumoniae Antigen (M - Final
Negative for Streptococcus pneumoniae antigen.
A negative result does not exclude infection with
Streptococcus pneumoniae. Clinical correlation is
recommended.
01/26/25 17:09 Urine Culture - Final
Urine
01/27/25 00:45 C. difficile GDH Antigen & Toxins - Final
Feces/Stool Negative for toxigenic C.difficile
- Final
Negative for Norovirus GI and GII.
01/26/25 17:09 Influenza Types A & B (GABO) - Final
Nasal Swab Negative for Influenza A & B, NAAT
Negative results must be combined with clinical observations
and patient history.
Nucleic Acid Amplification test (NAAT)performed on the
[employer] platform.
01/28/25 CT C/A/P: Bilateral lower lobe opacification with air bronchograms compatible with atelectasis and/or pneumonia with small bilateral pleural effusions.
Right perihilar opacification extending into the right upper lobe which may represent pneumonitis with accompanying small to moderate right hilar and small mediastinal lymph nodes. Unfortunately, malignancy centrally in the right hemithorax cannot
be excluded. Recommend short-term follow-up Chest CT.
Cholelithiasis. No findings to suggest biliary tract dilatation.
02/03/25 CXR: Patchy bilateral parenchymal opacities, slightly improved compared to CT of January 28, 2025. Findings are most suggestive of improving bilateral pneumonia.
02/04/25 Right ankle XRAY: No evidence of acute fracture or dislocation.
--- NOTE | 2025-02-07 11:10 | W.PN.HOSP.TC ---
Today's Communication/Plan
-
medically stable for d/c
Assessment / Plan
Assessment / Plan
79yo F with PMHx of HLD, hyperhydrosis, hypothyroidism, GERD, anxiety came with SOB and diarrhea, found pneumonia and tested positive for Legionella urinary Ag, improving on Azithromycin started on 01/30/25. ALso found new onset Afib and subacute CHF.
Hospital stay complicated with R >L ankle swelling s/p arthrocentesis by ortho with concern for gout and started on empiric colchicine that stopped due to diarrhea. Wityh low uric acid - most likely reactive arthritis 2/2 legionella. Diarrhea
possibly also caused by legionella. ID recommended Azithromycin till 02/12/25. QTc within acceptable limits so cardiology will not plan on outpatient shactor helper. Also planning to stop Lasix in 3 monhts, as well as Amiodarone. BBMP in 1 week with
PCP. Family and patient verbalized agreement with instructions Medically stable for d/c to rehab.
A/P:
#Acute hypoxic respiratory failure 2/2 legionella pneumonia
Azithromycin and daily QTc monitoring
ID consult for duration/selection
#Right perihilar opacification
Pulm follows
repeat CT chest in 4-6 weeks
#Diarrhea
most likely Abx-induced vs colchicine induced
Probiotics
Avoid Imodium since high risk for QTc prolongation with Zoloft and Azithromycin
Stool studies neg, WBC neg
Might need outpatient follow up with GI if not resolved after completion of Abx course
#R hearing loss
resolving off Lasix
concern for loop diuretic effect
stop Lasix with low concern for CHF from cardiology
outpatient ENT if persistent in 2-3 weeks upon recovery - daughter verbalized understanding of the instructions
#New onset Afib with RVR
#Non-ischemic myocardial injury
on Eliquis
cont rate control
cardio follows
#R>L ankle swelling
s/p arthrocentesis by ortho
improved
cocern for gout
test Uric acid
Reactive arthritis? - outpatient rheumatology
#Thrush
Hx of jaw discomfort
no vision changes, no temporal tenderness
ESR 60 - expected with pneumonia
#2.7 cm simple right lobe hepatic cyst
#Asymptomatic cholelithiasis
no follow up advised
#Hyperhidrosis
#Hyperthyroidism
#HLD
#EssentiL HTN
#Anxiety d/o
TSH WNL
cont home meds
#DJD
Tylenol
PT/OT, rehab
DVT ppx eliquis
Full code
I have spent at least 39min reviewing chart, test results, communication with consultants, daughter bedside and providing direct patient care
Anticipated Discharge: Today
Subjective/Interval History
-
Date of Service: February 07, 2025
Objective Data
-
Labs:
Laboratory Results
02/07/25
04:35
WBC 12.1 H
Hgb 11.6 L
Hct 35.3 L
Plt Count 308
Sodium 134 L
Potassium 4.2
Chloride 107
Carbon Dioxide 27
BUN 24 H
Creatinine 0.8
Glucose 89
Calcium 7.9 L
Total Bilirubin 0.5
AST 42 H
ALT 51 H
Alkaline Phosphatase 179 H
Vital Signs:
Vital Signs
Temp Pulse Resp BP Pulse Ox
97.9 F 85 20 105/54 97
02/07/25 07:55 02/07/25 08:52 02/07/25 07:55 02/07/25 08:52 02/07/25 07:56
I&O
02/06/25 02/07/25 02/08/25
06:59 06:59 06:59
Intake Total 720 / 720 480 / 480
Output Total 300 / 300 400 / 400
Balance 420 / 420 80 / 80
Review of Systems
-
History Source: Patient
All other systems: Reviewed and negative
Abdomen/GI: Reports Diarrhea
Physical Exam
-
General: Comfortable
HEENT: Normocephalic
Respiratory: Clear to Auscultation
GI: Soft, Nontender and Nondistended
Skin: Warm
Neuro: Awake, Alert, Oriented and AO x 3
Psych: Calm
--- NOTE | 2025-02-07 11:22 | W.DCSUMMARY ---
Addendum entered and electronically signed by Mahin Shay MD 02/08/25 08:47:
#Sepsis on admission 2/2 legionella pneumonia with hypoxia
Original Note:
Discharge Summary
Discharge Data
Date of Admission: 01/26/25
Date of Discharge: 02/07/25
-
Pending Results: No
Hospital Course
79yo F with PMHx of HLD, hyperhydrosis, hypothyroidism, GERD, anxiety came with SOB and diarrhea, found pneumonia and tested positive for Legionella urinary Ag, improving on Azithromycin started on 01/30/25. ALso found new onset Afib and subacute CHF.
Hospital stay complicated with R >L ankle swelling s/p arthrocentesis by ortho with concern for gout and started on empiric colchicine that stopped due to diarrhea. Wityh low uric acid - most likely reactive arthritis 2/2 legionella. Diarrhea
possibly also caused by legionella. ID recommended Azithromycin till 02/12/25. QTc within acceptable limits so cardiology will not plan on outpatient pvc monitor. Also planning to stop Lasix in 3 monhts, as well as Amiodarone. BBMP in 1 week with
PCP. Family and patient verbalized agreement with instructions Medically stable for d/c to rehab.
I have spent at least 39min reviewing chart, test results, communication with consultants, daughter bedside and providing direct patient care
Patient was managed for:
#Acute hypoxic respiratory failure 2/2 legionella pneumonia
#Right perihilar opacification
#Diarrhea
#R hearing loss
#New onset Afib with RVR
#Non-ischemic myocardial injury
#R>L ankle swelling, resolved
#Thrush
#2.7 cm simple right lobe hepatic cyst
#Asymptomatic cholelithiasis
#Hyperhidrosis
#Hyperthyroidism
#HLD
#EssentiL HTN
#Anxiety d/o
#DJD
Discharge Plan
-
Patient Disposition: [facility]/SNF
Discharge Diagnosis/Procedures: Legionella pneumonia
Diet: Regular
Activity: As tolerated
Driving Restrictions: As prior to admission
Blood Work: BMP in 1 week with family doctor
Others Tests: CT chest to repeat in 4-6 weeks with recreation therapy aides teacher
Referrals:
[facility] [Outside]
Lissy Aguirre CRNP [Specified Professional Personl] - 03/08/25 10:40 am
Julius Howell MD [Active] - in three to four weeks
Prince Gonzales MD [Family Provider] -
Additional Discharge Medication Instructions: Amiodarone 400 bid through 02/17/2025 then 200 mg daily for 3 months then STOP
Prescriptions:
New
Eliquis 5 mg Tablet
5 mg PO BID Qty: 60 0RF
potassium chloride 20 mEq Tablet,Er Particles/Crystals
40 meq PO DAILY Qty: 30 0RF
furosemide 40 mg Tablet
40 mg PO DAILY Qty: 30 0RF
nystatin 100,000 unit/mL Suspension
5 ml PO QID Qty: 60 0RF
Saline Nasal 0.65 % Aerosol,[place]
2 spray intranasal QIDPRN PRN (Reason: nasal congestion) Qty: 44 0RF
amiodarone 200 mg Tablet
400 mg PO DIRECTED Qty: 90 0RF
Rx Instructions:
400 bid through 02/17/2025 then 200 mg daily for 3 months then STOP
Lactobac/Bifidobac [Visbiome]
2 cap PO DAILY Qty: 60 0RF
azithromycin 250 mg Tablet
500 mg PO DAILY Qty: 12 0RF
Continued
glycopyrrolate 1 mg Tablet
1 mg PO BID
levothyroxine [Synthroid] 88 mcg Tablet
88 mcg PO DAILY
calcium carbonate 500 mg calcium (1,250 mg) Tablet
500 mg PO DAILY
sertraline 50 mg Tablet
50 mg PO DAILY
ezetimibe [Zetia] 10 mg Tablet
10 mg PO DAILY@1200
omeprazole 20 mg Tablet,Delayed Release (Dr/Ec)
20 mg PO DAILY
PreserVision AREDS 2,148 mcg-113 mg-45 mg-17.4mg Tablet
1 tab PO BID
Viviscal
1 tab PO BID
Patient Comments:
Microcrystalline Cellulose; less than 2% of: Hydroxypropyl Cellulose, Magnesium Stearate, Methylcellulose, Silicon Dioxide, Glycerin, Croscamellose Sodium, Natural Flavor
ipratropium bromide 21 mcg (0.03 %) [place],Non-Aerosol
2 spray INTRANASAL BID
Discontinued
metoprolol succinate [Toprol XL] 50 mg Tablet Extended Release 24 Hr
50 mg PO DAILY
Discharge Orders:
Discharge Patient (As Directed); Ordered 02/07/25
Ordered By: Mahin Shay
Care Plan Goals
Care Plan Goals:
Problem: Readiness for enhanced knowledge related to diagnosis and treatment plan
Goal: Understand your diagnosis and treatment plan needs, including medications if applicable.
Instructions: Know your diagnosis, underlying causes and treatment plan options, including medications if applicable. Consult with your health care team to learn about your diagnosis and treatment plan, including medications if applicable.
Discharge Date and Time
Print Language: MOROCCAN
[2025-02-07 11:45] VITALS: BP 106/66
[2025-02-07] MEDS: ZETIA 10 MG PO (11:54)
[2025-02-07] MEDS: OCEAN, SALINE MIST 2 SPRAYS NASAL (11:54)
--- NOTE | 2025-02-07 13:52 | CM ---
[facility] confirmed bed avail- [employer] auth approved- level 2 skilled 7 days- #[id number]- transport van today at 1430- pt agreeable to this plan.
--- NOTE | 2025-02-07 14:42 | PTCARENOTE ---
~[id number]: Handoff report received from nightshift RN. Pt Aox4, NSR 60s-70s on tele, 2L NC satting high 90s, patinet weaned to RA satting 95-96%, saline spray ordered per pt request by hospitalist. Diarrhea this AM. Appetite appears better and
patient appears to be stronger that previous days with Ax1 walker. Per patient, she would like the KCL elixir changed to potassium PO tablets instead, Dr. Tirado made aware, verbal order sent to pharmacy. All needs met at this time, call marques within
reach.
~0235-1610: Patient OOB in chair. Daughter at bedside. VSS at this time. patient d/c'd to [facility] this afternoon via wheelchair transport van. Report called to [facility] @ 1345. IVs removed and tele d/c'd. Patient picked up @ 1430
--- NOTE | 2025-02-07 14:47 | PN.CDI ---
CDI
- -
CDI:
Physician Documentation Request
Admit Date: 01/26/25 20:56
Dear Doctor Jaspal,
Please review the following and provide your response in the progress notes.
Clinical Indicators:
The diagnosis of sepsis was documented on 02/05 PN but is not consistently noted in subsequent documentation.
- 02/05 PN 'Presented with Fever, diarrhea, leukocytosis, fever , she is meeting criteria of sepsis POA, on admission source was GI'
- 02/07 PN 'Acute hypoxic respiratory failure 2/2 legionella pneumonia'
- On admission: WBC 16.2, Tmax 101.9, HR 90-100s, RR 20-30s
- 5L IVF
- IV abx Ceftriaxone
Please clarify the following:
____ - Sepsis was present on admission and is now resolved.
____ - Sepsis was ruled out
____ - Other
Use of terms such as suspected, likely, concern for, or probable (associated with a specific diagnosis that is being evaluated, monitored, or treated as if it exists) are acceptable and can be coded in the inpatient setting, when documented at the
time of discharge.
Thank you,
Kenneth Johnston RN
CDI Specialist
Please use your independent medical judgment in providing your response.
== END 2025-02-07 14:30 | DRG 871 ==
LOC: IVU 20:56
PROVIDERS: Emergency Medicine; Hospitalist; Internal Medicine; Internal Medicine Cardiovascular Disease; Nurse Practitioner; Physician Assistant Medical; ADMITTING PHYSICIAN Hospitalist; ATTENDING PHYSICIAN Internal Medicine; CONSULT PHYSICIAN Internal Medicine Critical Care Medicine; CONSULT PHYSICIAN Student in an Organized Health Care Education/Training Program; EMERGENCY PHYSICIAN Emergency Medicine; FAMILY PHYSICIAN Family Medicine; OTHER PHYSICIAN Internal Medicine Cardiovascular Disease; OTHER PHYSICIAN Internal Medicine Infectious Disease
DX: A41.9 Sepsis, unspecified organism (principal); A48.1 Legionnaires' disease; J96.01 Acute respiratory failure with hypoxia; G92.8 Other toxic encephalopathy; I50.33 Acute on chronic diastolic (congestive) heart failure; J81.0 Acute pulmonary edema; E87.1 Hypo-osmolality and hyponatremia; I5A Non-ischemic myocardial injury (non-traumatic); Z11.52 Encounter for screening for COVID-19; I48.91 Unspecified atrial fibrillation; E86.1 Hypovolemia; I11.0 Hypertensive heart disease with heart failure; F41.9 Anxiety disorder, unspecified; E78.5 Hyperlipidemia, unspecified; E89.0 Postprocedural hypothyroidism; E87.6 Hypokalemia; K21.9 Gastro-esophageal reflux disease without esophagitis; D50.9 Iron deficiency anemia, unspecified; M19.90 Unspecified osteoarthritis, unspecified site; I48.0 Paroxysmal atrial fibrillation; Z79.01 Long term (current) use of anticoagulants
CPT/HCPCS: 70450; 71045; 71260; 73610; 74177; 80048; 80053; 81003; 81015; 82248; 82805; 83735; 83880; 84100; 84443; 84484; 84550; 85025; 85027; 85652; 85730; 86140; 87040; 87045; 87046; 87070; 87086; 87205; 87324; 87427; 87449; 87502; 87798; 87811; 87899; 89055; 93005; 93306; 96361; 96374; 97110; 97116; 97163; 97167; 97530; 97535; 99285; Q9967

== ENCOUNTER → 2025-02-13 11:30 | Outpatient (REF) | payer OTHER, SELFPAY ==
[2025-02-13 13:11] LABS: Blood Urea Nitrogen 18 mg/dl (7-17); Calcium 8.4 mg/dl (8.4-10.2); Carbon Dioxide 31 mmol/L (22-30); Chloride 102 mmol/L (98-107); Glucose 83 mg/dl (70-99); Sodium 137 mmol/L (135-145); eGFR > 60.00
== END ==
LOC: OLABP 11:30
PROVIDERS: ATTENDING PHYSICIAN Family Medicine
DX: J96.01 Acute respiratory failure with hypoxia (principal); A48.1 Legionnaires' disease; I50.33 Acute on chronic diastolic (congestive) heart failure; I48.91 Unspecified atrial fibrillation; I5A Non-ischemic myocardial injury (non-traumatic); R61 Generalized hyperhidrosis; E78.5 Hyperlipidemia, unspecified; I10 Essential (primary) hypertension; K21.9 Gastro-esophageal reflux disease without esophagitis; F41.9 Anxiety disorder, unspecified; K81.9 Cholecystitis, unspecified; R91.8 Other nonspecific abnormal finding of lung field
CPT/HCPCS: 36415; 80048

== ENCOUNTER → 2025-03-16 11:18 | Outpatient (REF) | payer OTHER, SELFPAY | LOC: HWRAD 11:18 | PROVIDERS: ATTENDING PHYSICIAN Nurse Practitioner Family; FAMILY PHYSICIAN Student in an Organized Health Care Education/Training Program | DX: Z87.01 Personal history of pneumonia (recurrent) (principal) | CPT/HCPCS: 71250 ==

== ENCOUNTER → 2025-07-20 09:27 | Outpatient (REF) | payer OTHER, SELFPAY | LOC: HWWDC 09:27 | PROVIDERS: ATTENDING PHYSICIAN Physician Assistant | DX: Z12.31 Encounter for screening mammogram for malignant neoplasm of breast (principal) | CPT/HCPCS: 77063; 77067 ==